=== PATIENT | male | born 1965 | race Caucasian/White ===

== ENCOUNTER 2016-06-24 15:31 | Emergency (ER) | payer OTHER ==
[2016-06-24 15:38] VITALS: BP 150/86; PULSE 86; TEMP 98.2; BMI 31.3
--- NOTE | 2016-06-24 15:40 | PDOC ---
ED Treatment Course - LABORATORY CBC & Chemistry Diagram: 06/24/16 16:44 06/24/16 16:44 Medical Decision Making - Medical Decision Making 06/24/16 15:34 Pt comes with blood in his stool x 3 days. It was initially light; blood is always mixed with his stool; 4-5 episodes of blood in stool. Patient and describe bleed as heavy. No blood clots. No dizziness; but states that he feels tired. Minimal flank pain on exam. Pt states that he has pain in his both flanks that resolves with bowel movements. No dysuria and no heamaturia. Pt's dad dies of stomach cancer and they are worried that he has a cancer also. Pt is able to eat and drink. HE has no diarrhea and no constipation. No fever. Unknown if he has a history of hemorrhoids. Pt's abdomen is soft and nontender at present, but he states that the pain disappears after each bowel movement. He appears well hydrated. Given family history of stomach cancer, pt will be started on oral contrast, so that we may evaluate for mass/neoplasm on abdominal/pelvis CT Pt started drinking at 3:40. He will be ready for CT at 6PM *DC/Admit/Observation/Transfer Diagnosis at time of Disposition: Lymphadenopathy, abdominal, Rectal bleed - Discharge Dispostion Disposition: HOME Condition at time of disposition: Stable - Referrals Referrals: Curtis Diego MD [Staff Physician] - Troy Caputo DO [Staff Physician] - - Patient Instructions Printed Discharge Instructions: DI for Rectal Bleeding, DI for Lymphadenopathy Additional Instructions: Vuelva al departamento de emergencia inmediatamente con CUALQUIER nuevo, persistente o empeorando los sntomas, incluyendo cualquier reaparicin de sangrado rectal, aturdimiento, palpitaciones o cualquier preocupacin. Perez CT mostr alguna linfadenopata, por favor realice el seguimiento con el Dr. Johnathon richardson para sherrie evaluacin posterior. Tambin debe seguir con el Dr. Caputo para la reeavuacin de perez sangrado rectal. Los resultados fueron discutidos con usted. Por favor, asegrese de que perez m dico revise los resultados de perez evaluacin de emergencia. Se le entregar sherrie copia de la CT para april registros. Return to the emergency department immediately with ANY new, persistent or worsening symptoms including any recurrence of rectal bleeding, lightheadedness , palpitations or any concerns. Your CAT scan showed some lymphadenopathy, please follow-up with Dr. Diego tomorrow for further evaluation. You should also follow up with Dr. Caputo for reeavluation of your rectal bleeding. Results were discussed with you. Please make sure your doctor reviews the results of your emergency evaluation. A copy of the CT will be given to you for your records.
[2016-06-24 16:56] LABS: BASOPHIL 0.5 % (0-2.0); MCH 28.6 pg (25.7-33.7); MEAN CELL VOLUME 84.2 fl (80-96); MEAN PLT VOLUME 8.1 fl (7.5-11.1); NEUTROPHILS 49.4 % (42.8-82.8); PLATELET COUNT 243 K/MM3 (134-434); RDW 13.9 % (11.9-15.9); WHITE BLOOD COUNT 7.4 K/mm3 (4.0-10.0)
--- NOTE | 2016-06-24 17:09 | PDOC ---
History of Present Illness - General Chief Complaint: Bleeding from Anus Stated Complaint: BLOOD IN STOOL Time Seen by Provider: 06/24/16 15:34 History Source: Patient Exam Limitations: No Limitations - History of Present Illness Travel History: No Initial Comments: 06/24/16 20:15 The patient is a 51 year old male, with a significant past medical history of kidney stones, HLD, DM, who presents to the emergency department with 3 days of blood in his stool. Patient notes the blood was initially light, but has progressively gotten darker. He reports the blood is always mixed with his stool , and has had a total of 4-5 episodes of bloody stool. He describes the blood as heavy and denies any history of blood clots. Also has chief complaints of sharp bilateral flank pain that resolves with bowel movements and is worse with movements. He reports having a normal appetite with some mild nausea.. He denies any recent fevers, chills, or headache. He denies any recent vomit, diarrhea or constipation. Normal colonoscopy and endoscopy within this last year and a half. Allergies: NKA Social History: Nonsmoker. GI: Dr.Di Baker Past History - Past Medical History Allergies/Adverse Reactions: Allergies Allergy/AdvReac Type Severity Reaction Status Date / Time No Known Allergies Allergy Verified 06/24/16 15:34 Home Medications: Ambulatory Orders Simvastatin [Zocor -] 20 mg PO HS 11/07/14 Sitagliptin Phos/Metformin HCl [Janumet 50-500 mg Tablet] 1 tab PO DAILY Lisinopril [Prinivil] 20 mg PO DAILY 04/19/15 Anemia: No Asthma: No Cancer: No Cardiac Disorders: No CVA: No COPD: No CHF: No Dementia: No Diabetes: Yes GI Disorders: No Disorders: No HTN: Yes Hypercholesterolemia: Yes Kidney Stones: Yes Liver Disease: No Seizures: No Thyroid Disease: No - Surgical History Abdominal Surgery: No Appendectomy: No Cardiac Surgery: No Cholecystectomy: No Lung Surgery: No Neurologic Surgery: No Orthopedic Surgery: Yes (RIGHT SHOULDER ROTATOR CUFF REPAIR) - Family Disease History Family Disease History: CA: Father (stomach), Sister - Psycho/Social/Smoking Cessation Hx Anxiety: No Suicidal Ideation: No Smoking Status: No Smoking History: Never smoked Have you smoked in the past 12 months: No Number of Cigarettes Smoked Daily: 0 Information on smoking cessation initiated: No Hx Alcohol Use: No Drug/Substance Use Hx: No Substance Use Type: None Hx Substance Use Treatment: No Review of Systems - Review of Systems Able to Perform ROS?: Yes Comments:: 06/24/16 20:15 CONSTITUTIONAL: No reported: Fever, Chills, Diaphoresis, Generalized Weakness, Malaise, Loss of Appetite HEENT: No reported: Rhinorrhea, Nasal Congestion, Throat Pain, Throat Swelling, Difficulty Swallowing, Mouth Swelling, Ear Pain, Eye Pain, Visual Changes CARDIOVASCULAR: No reported: Chest Pain, Syncope, Palpitations, Irregular Heart Rate, Lightheadedness, Peripheral Edema RESPIRATORY: No reported: Cough, Shortness of Breath, SOB with Exertion, Orthopnea, Wheezing , Stridor, Hemoptysis GASTROINTESTINAL: No reported: Abdominal pain, Abdominal Distension, Nausea, Vomiting, Diarrhea, Constipation GENITOURINARY: +Blood in stool and bilateral flank pain. No reported: Dysuria, Frequency, Urgency, Hesitancy, Genital Pain MUSCULOSKELETAL: No reported: Myalgia, Arthralgia, Joint Swelling, Back pain, Neck Pain SKIN: No reported: Rash, Itching, Pallor HEMEATOLOGIC/IMMUNOLOGIC: No reported: Easy Bleeding, Easy Bruising, Lymphadenopathy, Frequent infections ENDOCRINE: No reported: Unexplained Weight Gain, Unexplained Weight Loss, Heat Intolerance , Cold Intolerance NEUROLOGIC: No reported: Headache, Focal Weakness, Paresthesias, Vertigo, Lightheadedness, Unsteady Gait, Seizure, Mental Status Changes, Incontinence PSYCHIATRIC: No reported: Anxiety, Depression *Physical Exam - Vital Signs Last Vital Signs Temp Pulse Resp BP Pulse Ox 98.2 F 86 18 150/86 100 06/24/16 15:34 06/24/16 15:34 06/24/16 15:34 06/24/16 15:34 06/24/16 15:34 - Physical Exam Comments: 06/24/16 20:15 GENERAL: The patient is awake, alert, and fully oriented, Nontoxic - in no acute distress. HEAD: Normocephalic, atraumatic. EYES: extraocular movements intact, sclera anicteric, conjunctiva clear. ENT: Normal voice, Moist mucous membranes. NECK: Normal range of motion, supple LUNGS: Breath sounds equal, clear to auscultation bilaterally. No wheezes, no rhonchi, no rales. HEART: Regular rate and rhythm, without murmur, rub or gallop. RECTUM: Normal brown stool. Non Thrombotic external hemorrhoids. ABDOMEN: Soft, nontender, normoactive bowel sounds. No guarding, no rebound.No CVA tenderness EXTREMITIES: Normal range of motion, no edema. No clubbing or cyanosis. No cords , erythema, or tenderness. NEUROLOGICAL: No facial asymmetry, Normal speech. PSYCH: Normal mood, normal affect. SKIN: Warm, Dry, normal turgor. Heart Score/ECG Review - ECG Impressions Comment:: 06/24/16 17:55 Twelve-lead EKG was performed and reviewed by me. There is normal sinus rhythm with a normal rate. Rate of 75 The axis is normal. The intervals are normal. There is normal R wave progression There are no ST or T wave abnormalities. Impression: Normal twelve-lead EKG ED Treatment Course - LABORATORY CBC & Chemistry Diagram: 06/24/16 16:44 06/24/16 16:44 Medical Decision Making - Medical Decision Making 06/24/16 17:07 51y M hx hl, dm presents with several episodes of rectal bleeding and lower back pain prior to these bms with mild nausea, without any fever/chills, abd pain, sypmtoms of anemia. On exam pt in no acute distress, abd soft notnender, rectal exam reveals brown stool with nonthrombosed external hemorroids. will ck ct to r/o diverticlar bleed. labs to r/o anemia will reassess A portion of this note was documented by scribe services under my direction. I have reviewed the details of the note, within reason, and agree with the documentation with the following case summary and management plan written by me 06/24/16 17:55 06/24/16 20:16 labs reviewed unreamrkable, guaic negative pts ct of the abdomen shows significant lympahdenoapthy that is worse than prior imaging will discuss with dr. pollard regarding disposition pt can likely receive outpatient PET scan will sign out to dr. Mendoza to discuss with dr. Pollard and dispo the patient. 06/24/16 20:[address] pollard nils have pt fu with dr. johnathon barber as an outpatient for further mangement of his lymphadenopathy I discussed the physical exam findings, ancillary test results and final diagnoses with the patient. I answered all of the patient's questions. The patient was satisfied with the care received and felt comfortable with the discharge plan and treatment plan. The patient will call their primary care physician within 24 hours to arrange follow-up and will return to the Emergency Department with any new, persistent or worsening symptoms. *DC/Admit/Observation/Transfer Diagnosis at time of Disposition: Lymphadenopathy, abdominal, Rectal bleed - Discharge Dispostion Disposition: HOME Condition at time of disposition: Stable Admit: No - Referrals Referrals: Curtis Diego MD [Staff Physician] - Troy Caputo DO [Staff Physician] - - Patient Instructions Printed Discharge Instructions: DI for Rectal Bleeding, DI for Lymphadenopathy Additional Instructions: Vuelva al departamento de emergencia inmediatamente con CUALQUIER nuevo, persistente o empeorando los sntomas, incluyendo cualquier reaparicin de sangrado rectal, aturdimiento, palpitaciones o cualquier preocupacin. Perez CT mostr alguna linfadenopata, por favor realice el seguimiento con el Dr. Johnathon richardson para sherrie evaluacin posterior. Tambin debe seguir con el Dr. Caputo para la reeavuacin de perez sangrado rectal. Los resultados fueron discutidos con usted. Por favor, asegrese de que perez m dico revise los resultados de perez evaluacin de emergencia. Se le entregar sherrie copia de la CT para april registros. Return to the emergency department immediately with ANY new, persistent or worsening symptoms including any recurrence of rectal bleeding, lightheadedness , palpitations or any concerns. Your CAT scan showed some lymphadenopathy, please follow-up with Dr. Diego tomorrow for further evaluation. You should also follow up with Dr. Caputo for reeavluation of your rectal bleeding. Results were discussed with you. Please make sure your doctor reviews the results of your emergency evaluation. A copy of the CT will be given to you for your records.
[2016-06-24 17:22] LABS: INR 1.02 (0.82-1.09); PROTHROMBIN TIME (PATIENT) 11.2 SEC (9.98-11.88)
[2016-06-24 17:32] LABS: ALBUMIN 3.7 g/dl (3.4-5.0); ALK PHOS 67 U/L (45-117); ANION GAP 9 (8-16); BILIRUBIN,TOTAL 0.3 mg/dL (0.2-1.0); CALCIUM 10.1 mg/dL (8.5-10.1); CO2 27 mmol/L (21-32); CREATININE 1.1 mg/dL (0.7-1.3); GLUCOSE,RANDOM 94 mg/dL (74-106); SGOT/AST 44 U/L (15-37); SGPT/ALT 50 U/L (12-78); TOT PROT 6.9 g/dl (6.4-8.2)
== END 2016-06-24 20:55 | disposition home or self-care (01) ==
LOC: JER 15:31
DX: R59.0 Localized enlarged lymph nodes (principal); K62.5 Hemorrhage of anus and rectum; E11.9 Type 2 diabetes mellitus without complications; Z79.4 Long term (current) use of insulin; E78.00 Pure hypercholesterolemia, unspecified; I10 Essential (primary) hypertension
CPT/HCPCS: 36415; 74176-TC; 80053; 82272; 85025; 85610; 86850; 86900; 86901; 99284-25; Q9967

== ENCOUNTER 2016-07-21 07:50 | Day surgery (SDC) | payer OTHER ==
[2016-07-16 15:04] VITALS: BMI 30.1
[2016-07-21 08:53] LABS: BASOPHIL 0.6 % (0-2.0); MCH 28.5 pg (25.7-33.7); MCHC 33.4 g/dl (32.0-35.9); MEAN CELL VOLUME 85.4 fl (80-96); MEAN PLT VOLUME 7.9 fl (7.5-11.1); NEUTROPHILS 49.4 % (42.8-82.8); PLATELET COUNT 229 K/MM3 (134-434); RDW 13.9 % (11.9-15.9); WHITE BLOOD COUNT 6.7 K/mm3 (4.0-10.0)
[2016-07-21 09:00] LABS: INR 1.04 (0.82-1.09); PROTHROMBIN TIME (PATIENT) 11.4 SEC (9.98-11.88)
[2016-07-21 09:53] VITALS: TEMP 97.8
[2016-07-21] MEDS ORDERED: ACETAMINOPHEN 325 MG TABLET (FP) ONE (13:29)
[2016-07-21] MEDS ORDERED: oxyCODONE HCL 5 MG TABLET ONE (13:30)
[2016-07-21 17:00] VITALS: BP 132/78; PULSE 75
--- NOTE | 2016-07-25 16:22 | PATH ---
Surgical Pathology Report Patient Name: MIGUELITO MCNAIR [facility]. Rec. #: [id number] /Age/Gender: 1965 (Age: 51) / M Account: [id number] Location: RADIOLOGY Taken: 07/21/2016 Received: 07/21/2016 Reported: 07/25/2016 Physicians: Jamie Pa M.D. Josue Ocampo M.D. Specimen(s) Received RETROPERITONEAL LYMPH NODE BIOPSY Clinical History 51 yo male with retroperitoneal adenopathy Final Diagnosis RETROPERITONEAL LYMPH NODE, CT GUIDED CORE BIOPSY: FOLLICULAR LYMPHOMA, LOW GRADE (GRADE 2), SEE COMMENT. Comment: This case was seen in consultation with hematopathology service at [place], [place] ([id number], Dr. Rios). The diagnosis above reflects the consultation opinion. The biopsy shows lymphoid proliferation and follicular pattern. The lymphocytes of the four pulse in the germinal centers are composed of mixed small and large lymphoid cells, the large lymphoid cells of less than 15 /HPF, which is consistent with follicular lymphoma grade 2. Immunohistochemical stains show the following: The neoplastic lymphocytes are positive for CD20, CD10, BCL2 and BCL6 immunostains, negative for CD3 and BCL1 immunostains; CD23 highlights follicular dendritic network. Ki67 proliferation index is ~40%. Flow cytometry performed and interpreted on the concurrent specimen at [place], [place] ([id number]) showed clonal CD10+ B cell population, 15% of total events, in the polytypic background. The B cells were 35% of total events. A clonal (Honor, moderate) B-cell population with dim CD19 and moderate-bright CD20 and FMC7 expression, co-expressing CD10, 15% of total events, was noted within a polytypic background. The T-cells (61% of total) showed no account for cell antigen deletion. Electronically Signed Jose John M.D. Gross Description Received in formalin, labeled "lymph node biopsy" are 3 santos-red, cylindrical portions of soft tissue ranging from 0.5-1.8 cm in length and averaging 0.1 cm in diameter. The specimens are submitted in toto in one cassette. Additional tissue received in RPMI solution is sent for flow cytometry. 07/21/201607/21/2016
== END 2016-07-21 15:00 | disposition home or self-care (01) ==
LOC: JRADIR 07:50
PROVIDERS: ATTEND Internal Medicine Hematology & Oncology
PROC: BW40ZZZ Ultrasonography of Abdomen (ICD-10-PCS; principal; 2016-07-21)
PROC: 07BC3ZX Excision of Pelvis Lymphatic, Percutaneous Approach, Diagnostic (ICD-10-PCS; 2016-07-21)
DX: R59.0 Localized enlarged lymph nodes (principal)
CPT/HCPCS: 36415; 38505; 76098-TC; 76942; 77012-TC; 85025; 85610; 87899; 88305-TC

== ENCOUNTER 2016-09-16 08:45 | Day surgery (SDC) | payer OTHER ==
[2016-09-15 13:16] VITALS: BMI 30.1
[2016-09-16 09:11] LABS: BASOPHIL 0.5 % (0-2.0); EOSINOPHIL 1.6 % (0-4.5); MCH 28.6 pg (25.7-33.7); MCHC 33.5 g/dl (32.0-35.9); MEAN CELL VOLUME 85.2 fl (80-96); MEAN PLT VOLUME 7.6 fl (7.5-11.1); NEUTROPHILS 44.1 % (42.8-82.8); PLATELET COUNT 232 K/MM3 (134-434); WHITE BLOOD COUNT 6.9 K/mm3 (4.0-10.0)
[2016-09-16 09:16] LABS: INR 1.04 (0.82-1.09); PROTHROMBIN TIME (PATIENT) 11.5 SEC (9.98-11.88)
[2016-09-16 12:19] VITALS: PULSE 70
[2016-09-16 15:04] VITALS: BP 130/74
[2016-09-16 15:42] VITALS: TEMP 98
== END 2016-09-16 14:15 | disposition home or self-care (01) ==
LOC: JRADIR 08:45
PROVIDERS: ATTEND Internal Medicine Hematology & Oncology
PROC: 0JH63XZ Insertion of Tunneled Vascular Access Device into Chest Subcutaneous Tissue and Fascia, Percutaneous Approach (ICD-10-PCS; principal; 2016-09-16)
PROC: 05HM33Z Insertion of Infusion Device into Right Internal Jugular Vein, Percutaneous Approach (ICD-10-PCS; 2016-09-16)
PROC: B513ZZA Fluoroscopy of Right Jugular Veins, Guidance (ICD-10-PCS; 2016-09-16)
DX: C82.10 Follicular lymphoma grade II, unspecified site (principal)
CPT/HCPCS: 36561; 76937; 77001; C1751; 36415; 85025; 85610; C1788

== ENCOUNTER 2016-09-17 07:17 | Day surgery (SDC) | payer OTHER ==
[2016-09-17] MEDS ORDERED: PALONOSETRON HCL 0.25 MG in SODIUM CHLORIDE 50 ML IVPB ONE (08:00)
[2016-09-17] MEDS ORDERED: ACETAMINOPHEN 325 MG TABLET (FP) PO ONE (08:00)
[2016-09-17] MEDS ORDERED: DEXAMETHASONE INJECTION 10 MG in SODIUM CHLORIDE 50 ML IVPB ONE (08:00)
[2016-09-17] MEDS ORDERED: DIPHENHYDRAMINE 50 MG in SODIUM CHLORIDE 50 ML IVPB ONE (08:00)
[2016-09-17] MEDS ORDERED: BENDAMUSTINE HCL IVPB ONE (08:30)
[2016-09-17] MEDS ORDERED: SODIUM CHLORIDE IVPB ONE ×2 (08:30→09:30)
[2016-09-17] MEDS ORDERED: RITUXIMAB IVPB ONE (09:30)
[2016-09-17 09:48] LABS: BASOPHIL 0.8 % (0-2.0); EOSINOPHIL 1.4 % (0-4.5); MCH 28.5 pg (25.7-33.7); MCHC 33.5 g/dl (32.0-35.9); MEAN CELL VOLUME 85.1 fl (80-96); MEAN PLT VOLUME 8.1 fl (7.5-11.1); NEUTROPHILS 48.2 % (42.8-82.8); PLATELET COUNT 235 K/MM3 (134-434); WHITE BLOOD COUNT 6.6 K/mm3 (4.0-10.0)
[2016-09-17 12:21] LABS: ALBUMIN 3.8 g/dl (3.4-5.0); BILIRUBIN,DIRECT 0.1 mg/dL (0.0-0.2); BILIRUBIN,TOTAL 0.2 mg/dL (0.2-1.0); TOT PROT 6.9 g/dl (6.4-8.2); URIC ACID 4.9 mg/dL (2.6-7.2)
[2016-09-17] MEDS ORDERED: PORTA CATH FLUSH 10 ML IVPUSH ONE (13:58)
[2016-09-17] MEDS ORDERED: DEXAMETHASONE SOD PHOSPHATE 10 MG/1 ML VIAL IVPB ONE ×3 (14:30→21:15)
[2016-09-17] MEDS: SODIUM BICARBONATE 8.4% - 50 MEQ in SODIUM CHLORIDE 0.45% 1,000 ML IVPB SCH ×2 (14:54→23:50)
--- NOTE | 2016-09-17 18:55 | PN ---
Progress Note (short form) - Note Progress Note: nurse called saying patient was having itching and rash over the scalp to rituxan at 150mg/hr.Vitals were stable no cough/respiratory problems/choking senastion or any other problems Responded to 20mg dexamethasone restarted rituxan at 50 mg/hr. and increasd to 125mg/hr. when he had some itching. Itching resolved with benadryl 25mg resumed at 50mg/hr. and increased to 100mg/hr. Plan not to increase it more than 100mg/hr. for rest of the infusion
[2016-09-17] MEDS ORDERED: SODIUM BICARBONATE 8.4% IV SCH (21:30)
[2016-09-17] MEDS ORDERED: SODIUM CHLORIDE 0.45% IV SCH (21:30)
[2016-09-17] MEDS ORDERED: INSULIN (NOVOLOG) ASPART 100 UNITS/ML 10ML VIAL SQ ONE (23:00)
[2016-09-18] MEDS ORDERED: SODIUM CHLORIDE 0.45% IV SCH (03:15)
[2016-09-18] MEDS ORDERED: SODIUM BICARBONATE 8.4% IV SCH (03:15)
[2016-09-18 07:28] LABS: BASOPHIL 0.1 % (0-2.0); MCH 28.6 pg (25.7-33.7); MCHC 33.9 g/dl (32.0-35.9); MEAN CELL VOLUME 84.5 fl (80-96); MEAN PLT VOLUME 7.8 fl (7.5-11.1); NEUTROPHILS 94.2 % (42.8-82.8); PLATELET COUNT 226 K/MM3 (134-434); WHITE BLOOD COUNT 10.5 K/mm3 (4.0-10.0)
[2016-09-18 07:45] LABS: ALBUMIN 3.6 g/dl (3.4-5.0); ANION GAP 13 (8-16); CALCIUM 8.9 mg/dL (8.5-10.1); CO2 22 mmol/L (21-32); COCKROFT - GAULT 102; CREATININE 1.1 mg/dL (0.7-1.3); GLUCOSE,RANDOM 171 mg/dL (74-106); LDH 174 U/L (87-241); SGOT/AST 34 U/L (15-37); SGPT/ALT 63 U/L (12-78)
[2016-09-18 07:49] LABS: ALK PHOS 50 U/L (45-117); BILIRUBIN,TOTAL 0.4 mg/dL (0.2-1.0); TOT PROT 6.6 g/dl (6.4-8.2)
[2016-09-18] MEDS ORDERED: INSULIN (NOVOLOG) ASPART 100 UNITS/ML 10ML VIAL ONE (07:59)
[2016-09-18 08:07] LABS: IGG IMMUNOGLOBULIN 814 mg/dL (700-1600); IGM IMMUNOGLOBULIN 66 mg/dL (20-172)
[2016-09-18 08:47] LABS: PHOSPHOROUS 2.6 mg/dL (2.5-4.9); URIC ACID 3.4 mg/dL (2.6-7.2)
[2016-09-18] MEDS ORDERED: SODIUM CHLORIDE 250 ML IV ONE (09:00)
[2016-09-18] MEDS ORDERED: DEXAMETHASONE SOD PHOSPHATE 10 MG/1 ML VIAL IVPB PRN (09:06)
[2016-09-18 09:16] VITALS: BP 131/78; PULSE 100; TEMP 97.9
[2016-09-18] MEDS ORDERED: DEXAMETHASONE INJECTION 20 MG, DIPHENHYDRAMINE 50 MG in SODIUM CHLORIDE 100 ML IVPB ONE (09:30)
--- NOTE | 2016-09-18 10:50 | CONS ---
DATE OF CONSULTATION: DATE OF DICTATION: 09/18/2016 Thank you for the consult. This is a patient of mine. Patient is here for chemotherapy. He is known to have diabetes. After getting chemotherapy, he had chemotherapy, right for his CA of prostate. He had a reaction, he was itching, so, he had to get more steroids IV. Itching resolved. His blood sugar was 254. Had given him some insulin and the blood sugar this morning is normal. PHYSICAL EXAMINATION: General: He is awake, alert, oriented. Vital signs: Are stable. HEENT: Unremarkable. Lungs: Clear. Heart: S1, S2 normal. No S3, S4. Abdomen: Soft. Extremities: Legs no edema. His blood sugar this morning is normal. I advise to continue his chemotherapy, and this evening when chemotherapy is finished, he can be discharged home. GONZÁLEZ MCKEE M.D. [id number]
[2016-09-18] MEDS ORDERED: DEXAMETHASONE INJECTION 20 MG in SODIUM CHLORIDE 50 ML IVPB ONE (11:30)
[2016-09-18] MEDS ORDERED: SODIUM BICARBONATE 8.4% - 50 MEQ in DEXTROSE 5%-0.45% SALINE 1,000 ML IVPB ONE (12:00)
== END 2016-09-18 10:15 | disposition home or self-care (01) ==
LOC: JONCCHEMO 07:17 → J7W 11:09 → JONCCHEMO 09-18 10:15
PROVIDERS: ATTEND Internal Medicine Hematology & Oncology
DX: Z51.11 Encounter for antineoplastic chemotherapy (principal); C82.10 Follicular lymphoma grade II, unspecified site; L50.8 Other urticaria; T50.995A Adverse effect of other drugs, medicaments and biological substances, initial encounter; Y92.530 Ambulatory surgery center as the place of occurrence of the external cause
CPT/HCPCS: 36415; 80048; 80053; 80076; 82784; 83615; 84100; 84550; 85025; 85651; 96367; 96375; 96413; 96415; 96417; J2469; J9033; J9310

== ENCOUNTER 2016-09-18 07:18 | Day surgery (SDC) | payer OTHER ==
[2016-09-18] MEDS ORDERED: DEXAMETHASONE INJECTION 10 MG in SODIUM CHLORIDE 50 ML IVPB ONE (08:00)
[2016-09-18] MEDS ORDERED: ONDANSETRON INJECTION 8 MG in SODIUM CHLORIDE 50 ML IVPB ONE (08:00)
[2016-09-18] MEDS ORDERED: SODIUM CHLORIDE IVPB ONE (08:30)
[2016-09-18] MEDS ORDERED: BENDAMUSTINE HCL IVPB ONE (08:30)
[2016-09-18] MEDS ORDERED: SODIUM CHLORIDE 1,000 ML IV ONE (10:00)
[2016-09-18] MEDS ORDERED: DIPHENHYDRAMINE 50 MG, DEXAMETHASONE INJECTION 20 MG in SODIUM CHLORIDE 100 ML IVPB ONE (10:15)
[2016-09-18] MEDS ORDERED: DEXAMETHASONE SOD PHOSPHATE 10 MG/1 ML VIAL IVPB PRN (10:52)
[2016-09-18] MEDS ORDERED: PORTA CATH FLUSH 10 ML IVPUSH ONE (12:35)
[2016-09-18 12:36] VITALS: TEMP 97.9
[2016-09-18] MEDS: DEXAMETHASONE INJECTION 20 MG in SODIUM CHLORIDE 50 ML IVPB ONE ×2 (12:55→14:39)
[2016-09-18] MEDS ORDERED: DEXAMETHASONE INJECTION 20 MG in SODIUM CHLORIDE 50 ML IVPB ONE (13:15)
[2016-09-18] MEDS: INSULIN SLIDING SCALE (NOVOLOG) 1 VIAL SQ SCH ×3 (13:47→20:30)
[2016-09-18] MEDS ORDERED: SODIUM BICARBONATE 8.4% - 50 MEQ in DEXTROSE 5%-0.45% SALINE 1,000 ML IVPB ONE (14:00)
[2016-09-18] MEDS ORDERED: INSULIN (NOVOLOG) ASPART 100 UNITS/ML 10ML VIAL ONE (20:28)
[2016-09-18 20:55] VITALS: BP 142/62; PULSE 99
[2016-09-18] MEDS ORDERED: INSULIN (NOVOLOG) ASPART 100 UNITS/ML 10ML VIAL SQ ONE (21:45)
== END 2016-09-18 22:03 | disposition home or self-care (01) ==
LOC: JONCCHEMO 07:18 → J7W 10:16 → JONCCHEMO 22:03
PROVIDERS: ATTEND Internal Medicine Hematology & Oncology
DX: Z51.11 Encounter for antineoplastic chemotherapy (principal); C82.10 Follicular lymphoma grade II, unspecified site
CPT/HCPCS: 96360; 96361; 96367; 96375; 96413; 96415; 96417; J9033

== ENCOUNTER 2016-09-22 07:40 | Day surgery (SDC) | payer OTHER ==
[2016-09-22] MEDS ORDERED: PEGFILGRASTIM 6 MG/0.6 ML DISP.SYRIN SQ ONE (08:00)
[2016-09-22 10:27] LABS: MCH 28.4 pg (25.7-33.7); MCHC 33.6 g/dl (32.0-35.9); MEAN CELL VOLUME 84.6 fl (80-96); MEAN PLT VOLUME 7.8 fl (7.5-11.1); PLATELET COUNT 210 K/MM3 (134-434); RDW 13.9 % (11.9-15.9); WHITE BLOOD COUNT 5.6 K/mm3 (4.0-10.0)
[2016-09-22 11:10] LABS: ALBUMIN 3.7 g/dl (3.4-5.0); ANION GAP 12 (8-16); CALCIUM 8.8 mg/dL (8.5-10.1); CO2 22 mmol/L (21-32); COCKROFT - GAULT 86; CREATININE 1.3 mg/dL (0.7-1.3); GLUCOSE,RANDOM 226 mg/dL (74-106); SGOT/AST 26 U/L (15-37); SGPT/ALT 46 U/L (12-78); URIC ACID 4.5 mg/dL (2.6-7.2)
[2016-09-22 11:12] LABS: ALK PHOS 63 U/L (45-117); BILIRUBIN,TOTAL 0.4 mg/dL (0.2-1.0); LDH 172 U/L (87-241); TOT PROT 6.9 g/dl (6.4-8.2)
[2016-09-22 11:13] LABS: BILIRUBIN,DIRECT < 0.1 mg/dL (0.0-0.2)
[2016-09-22 11:25] LABS: METAMYELOCYTE 1 % (0-2)
[2016-09-22 11:26] LABS: PLATELET ESTIMATE ADEQUATE (NORMAL)
[2016-09-22 14:54] VITALS: BP 110/73; PULSE 92; TEMP 98.3
== END 2016-09-22 15:22 | disposition home or self-care (01) ==
LOC: JONCCHEMO 07:40 → J7W 10:56 → JONCCHEMO 15:22
PROVIDERS: ATTEND Internal Medicine Hematology & Oncology
PROC: 3E013GC Introduction of Other Therapeutic Substance into Subcutaneous Tissue, Percutaneous Approach (ICD-10-PCS; principal; 2016-09-22)
DX: C82.18 Follicular lymphoma grade II, lymph nodes of multiple sites (principal)
CPT/HCPCS: 36415; 80053; 80076; 83615; 83735; 84550; 85025; 96372; J2505

== ENCOUNTER 2016-10-15 07:32 | Day surgery (SDC) | payer OTHER ==
[2016-10-15] MEDS ORDERED: PALONOSETRON HCL 0.25 MG in SODIUM CHLORIDE 50 ML IVPB ONE (10:00)
[2016-10-15] MEDS ORDERED: ACETAMINOPHEN 325 MG TABLET (FP) PO ONE (10:00)
[2016-10-15] MEDS ORDERED: DEXAMETHASONE INJECTION 10 MG in SODIUM CHLORIDE 50 ML IVPB ONE (10:00)
[2016-10-15] MEDS ORDERED: BENDAMUSTINE HCL IVPB ONE (10:30)
[2016-10-15] MEDS ORDERED: SODIUM CHLORIDE IVPB ONE ×2 (10:30→10:40)
[2016-10-15] MEDS ORDERED: RITUXIMAB IVPB ONE (10:40)
[2016-10-15 11:26] LABS: BASOPHIL 1.1 % (0-2.0); EOSINOPHIL 0.9 % (0-4.5); MCH 29.3 pg (25.7-33.7); MCHC 34.2 g/dl (32.0-35.9); MEAN CELL VOLUME 85.7 fl (80-96); MEAN PLT VOLUME 7.6 fl (7.5-11.1); NEUTROPHILS 67.8 % (42.8-82.8); PLATELET COUNT 252 K/MM3 (134-434); RDW 14.7 % (11.9-15.9); WHITE BLOOD COUNT 5.5 K/mm3 (4.0-10.0)
[2016-10-15 11:51] LABS: ANION GAP 12 (8-16); BILIRUBIN,TOTAL 0.3 mg/dL (0.2-1.0); CALCIUM 9.3 mg/dL (8.5-10.1); CO2 21 mmol/L (21-32); COCKROFT - GAULT 94; CREATININE 1.2 mg/dL (0.7-1.3); GLUCOSE,RANDOM 109 mg/dL (74-106); LDH 175 U/L (87-241); PHOSPHOROUS 3.6 mg/dL (2.5-4.9); SGOT/AST 37 U/L (15-37); SGPT/ALT 61 U/L (12-78); TOT PROT 7.1 g/dl (6.4-8.2); URIC ACID 4.6 mg/dL (2.6-7.2)
[2016-10-15 11:52] LABS: ALK PHOS 72 U/L (45-117)
[2016-10-15] MEDS ORDERED: DEXAMETHASONE INJECTION 20 MG in SODIUM CHLORIDE 50 ML IVPB ONE (12:30)
[2016-10-15] MEDS: DIPHENHYDRAMINE 50 MG in SODIUM CHLORIDE 50 ML IVPB ONE ×2 (13:24→14:27)
[2016-10-15] MEDS ORDERED: DIPHENHYDRAMINE 50 MG in SODIUM CHLORIDE 50 ML IVPB ONE (14:00)
[2016-10-15] MEDS ORDERED: PORTA CATH FLUSH 10 ML IVPUSH PRN (19:10)
[2016-10-15] MEDS: metFORMIN HCL 500 MG TABLET (FP) PO SCH (21:10)
[2016-10-15] MEDS ORDERED: ALLOPURINOL 300 MG TABLET (FP) PO SCH (22:00)
[2016-10-15] MEDS ORDERED: RAMIPRIL 5 MG CAPSULE (FP) PO SCH (22:00)
[2016-10-16 05:32] VITALS: BP 126/74; PULSE 101; TEMP 98
[2016-10-16] MEDS: metFORMIN HCL 500 MG TABLET (FP) PO SCH (06:04)
[2016-10-16] MEDS ORDERED: sitaGLIPtin PHOSPHATE 50 MG TABLET PO SCH (07:00)
[2016-10-16] MEDS ORDERED: LINZESS 145 MCG PO SCH (10:00)
== END 2016-10-16 07:09 | disposition home or self-care (01) ==
LOC: JONCCHEMO 07:32 → J7W 12:17 → JONCCHEMO 10-16 07:09
PROVIDERS: ATTEND Internal Medicine Hematology & Oncology
DX: Z51.11 Encounter for antineoplastic chemotherapy (principal); C82.18 Follicular lymphoma grade II, lymph nodes of multiple sites
CPT/HCPCS: 36415; 80053; 80074; 83615; 84100; 84550; 85025; 85651; 96367; 96375; 96413; 96415; 96417; J2469; J8540; J9034; J9310

== ENCOUNTER 2016-10-16 07:21 | Day surgery (SDC) | payer OTHER ==
[2016-10-16] MEDS ORDERED: ONDANSETRON INJECTION 8 MG in SODIUM CHLORIDE 50 ML IVPB ONE (10:00)
[2016-10-16] MEDS ORDERED: DEXAMETHASONE INJECTION 10 MG in SODIUM CHLORIDE 50 ML IVPB ONE (10:00)
[2016-10-16] MEDS ORDERED: SODIUM CHLORIDE IVPB ONE (10:30)
[2016-10-16] MEDS ORDERED: BENDAMUSTINE HCL IVPB ONE (10:30)
[2016-10-16 12:44] VITALS: BP 100/55; PULSE 92; TEMP 97.6
[2016-10-16] MEDS ORDERED: PORTA CATH FLUSH 10 ML IVPUSH PRN (12:44)
== END 2016-10-16 12:00 | disposition home or self-care (01) ==
LOC: JONCCHEMO 07:21 → J7W 10:23 → JONCCHEMO 12:00
PROVIDERS: ATTEND Internal Medicine Hematology & Oncology
PROC: 3E04305 Introduction of Other Antineoplastic into Central Vein, Percutaneous Approach (ICD-10-PCS; principal; 2016-10-16)
PROC: 3E043GC Introduction of Other Therapeutic Substance into Central Vein, Percutaneous Approach (ICD-10-PCS; 2016-10-16)
DX: Z51.11 Encounter for antineoplastic chemotherapy (principal); C82.18 Follicular lymphoma grade II, lymph nodes of multiple sites
CPT/HCPCS: 96375; 96409; J9033; 96367; 96413; J9034

== ENCOUNTER 2016-10-20 07:39 | Day surgery (SDC) | payer OTHER ==
[2016-10-20 09:36] LABS: BASOPHIL 0.6 % (0-2.0); MCHC 33.6 g/dl (32.0-35.9); MEAN CELL VOLUME 86.2 fl (80-96); MEAN PLT VOLUME 7.6 fl (7.5-11.1); NEUTROPHILS 85.6 % (42.8-82.8); PLATELET COUNT 230 K/MM3 (134-434); RDW 15.1 % (11.9-15.9); WHITE BLOOD COUNT 4.4 K/mm3 (4.0-10.0)
[2016-10-20] MEDS ORDERED: PEGFILGRASTIM 6 MG/0.6 ML DISP.SYRIN SQ ONE (10:00)
[2016-10-20 10:01] LABS: ALBUMIN 3.9 g/dl (3.4-5.0); CALCIUM 9.3 mg/dL (8.5-10.1)
[2016-10-20 10:05] LABS: BILIRUBIN,TOTAL 0.4 mg/dL (0.2-1.0); CREATININE 1.5 mg/dL (0.7-1.3); TOT PROT 6.8 g/dl (6.4-8.2)
[2016-10-20 10:08] VITALS: BP 102/65; PULSE 80; TEMP 98
== END 2016-10-20 11:12 | disposition home or self-care (01) ==
LOC: JONCNONCHE 07:39 → J7W 09:58 → JONCNONCHE 11:12
PROVIDERS: ATTEND Internal Medicine Hematology & Oncology
PROC: 3E013GC Introduction of Other Therapeutic Substance into Subcutaneous Tissue, Percutaneous Approach (ICD-10-PCS; principal; 2016-10-20)
DX: C82.18 Follicular lymphoma grade II, lymph nodes of multiple sites (principal)
CPT/HCPCS: 36415; 80053; 85025; 96372; J2505

== ENCOUNTER 2016-11-12 07:45 | Day surgery (SDC) | payer OTHER ==
[2016-11-12 09:54] LABS: BASOPHIL 0.9 % (0-2.0); EOSINOPHIL 0.2 % (0-4.5); MCH 30.1 pg (25.7-33.7); MCHC 34.6 g/dl (32.0-35.9); MEAN PLT VOLUME 7.5 fl (7.5-11.1); NEUTROPHILS 61.7 % (42.8-82.8); PLATELET COUNT 248 K/MM3 (134-434); RDW 15.6 % (11.9-15.9); WHITE BLOOD COUNT 4.1 K/mm3 (4.0-10.0)
[2016-11-12] MEDS ORDERED: ACETAMINOPHEN 325 MG TABLET (FP) PO ONE (10:00)
[2016-11-12] MEDS ORDERED: DIPHENHYDRAMINE 50 MG in SODIUM CHLORIDE 50 ML IVPB ONE (10:00)
[2016-11-12] MEDS ORDERED: SODIUM CHLORIDE 250 ML IV ONE (10:00)
[2016-11-12] MEDS ORDERED: DEXAMETHASONE INJECTION 10 MG in SODIUM CHLORIDE 50 ML IVPB ONE (10:00)
[2016-11-12] MEDS ORDERED: PALONOSETRON HCL 0.25 MG in SODIUM CHLORIDE 50 ML IVPB ONE (10:00)
[2016-11-12 10:24] LABS: ALBUMIN 3.9 g/dl (3.4-5.0); ALK PHOS 73 U/L (45-117); ANION GAP 7 (8-16); BILIRUBIN,TOTAL 0.2 mg/dL (0.2-1.0); CALCIUM 8.7 mg/dL (8.5-10.1); CO2 25 mmol/L (21-32); CREATININE 1.2 mg/dL (0.7-1.3); GLUCOSE,RANDOM 158 mg/dL (74-106); MAGNESIUM 1.9 mg/dL (1.8-2.4); SGOT/AST 49 U/L (15-37); SGPT/ALT 63 U/L (12-78); TOT PROT 6.8 g/dl (6.4-8.2)
[2016-11-12 10:25] LABS: BILIRUBIN,DIRECT < 0.1 mg/dL (0.0-0.2)
[2016-11-12] MEDS ORDERED: BENDAMUSTINE HCL IVPB ONE (10:30)
[2016-11-12] MEDS ORDERED: SODIUM CHLORIDE IVPB ONE ×2 (10:30→10:40)
[2016-11-12] MEDS ORDERED: RITUXIMAB IVPB ONE (10:40)
[2016-11-12] MEDS ORDERED: PORTA CATH FLUSH 10 ML IVPUSH ONE (11:26)
[2016-11-12 11:44] LABS: LDH 185 U/L (87-241)
[2016-11-12 11:47] LABS: URIC ACID 5.1 mg/dL (2.6-7.2)
[2016-11-12] MEDS ORDERED: DEXAMETHASONE SOD PHOSPHATE 10 MG/1 ML VIAL IVPB ONE ×2 (12:00→15:30)
[2016-11-12] MEDS ORDERED: diphenhydrAMINE HCL 25 MG CAPSULE (FP) PO ONE (17:15)
[2016-11-12 19:39] VITALS: TEMP 98.2
[2016-11-12 20:45] VITALS: BP 117/70; PULSE 102
== END 2016-11-12 20:00 | disposition home or self-care (01) ==
LOC: JONCCHEMO 07:45 → J7W 11:15 → JONCCHEMO 20:00
PROVIDERS: ATTEND Internal Medicine Hematology & Oncology
DX: Z51.11 Encounter for antineoplastic chemotherapy (principal); C82.90 Follicular lymphoma, unspecified, unspecified site; I10 Essential (primary) hypertension; E11.9 Type 2 diabetes mellitus without complications; Z79.84 Long term (current) use of oral hypoglycemic drugs
CPT/HCPCS: 36415; 80053; 80076; 83615; 83735; 84550; 85025; 85651; 96361; 96375; 96413; 96415; 96417; J2469; J9034; J9310

== ENCOUNTER 2016-11-13 07:32 | Day surgery (SDC) | payer OTHER ==
[2016-11-13] MEDS ORDERED: ONDANSETRON INJECTION 8 MG in SODIUM CHLORIDE 50 ML IVPB ONE (10:00)
[2016-11-13] MEDS ORDERED: DEXAMETHASONE INJECTION 10 MG in SODIUM CHLORIDE 50 ML IVPB ONE (10:00)
[2016-11-13] MEDS ORDERED: SODIUM CHLORIDE 250 ML IV ONE (10:00)
[2016-11-13] MEDS ORDERED: SODIUM CHLORIDE IVPB ONE (10:30)
[2016-11-13] MEDS ORDERED: BENDAMUSTINE HCL IVPB ONE (10:30)
[2016-11-13] MEDS ORDERED: PORTA CATH FLUSH 10 ML IVPUSH ONE (10:53)
[2016-11-13 14:43] VITALS: BP 126/75; PULSE 80; TEMP 98
== END 2016-11-13 18:42 | disposition home or self-care (01) ==
LOC: JONCCHEMO 07:32 → J7W 10:42 → JONCCHEMO 18:42
PROVIDERS: ATTEND Internal Medicine Hematology & Oncology
DX: Z51.11 Encounter for antineoplastic chemotherapy (principal); C82.90 Follicular lymphoma, unspecified, unspecified site
CPT/HCPCS: 96361; 96375; 96409; 96413; J9034

== ENCOUNTER 2016-11-17 07:43 | Day surgery (SDC) | payer OTHER ==
[2016-11-17] MEDS ORDERED: PEGFILGRASTIM 6 MG/0.6 ML DISP.SYRIN SQ ONE (08:00)
[2016-11-17 09:06] LABS: BASOPHIL 0.4 % (0-2.0); EOSINOPHIL 0.8 % (0-4.5); MCH 29.8 pg (25.7-33.7); MCHC 34.2 g/dl (32.0-35.9); MEAN CELL VOLUME 87.2 fl (80-96); MEAN PLT VOLUME 7.1 fl (7.5-11.1); NEUTROPHILS 85.6 % (42.8-82.8); PLATELET COUNT 258 K/MM3 (134-434); RDW 15.3 % (11.9-15.9); WHITE BLOOD COUNT 3.7 K/mm3 (4.0-10.0)
[2016-11-17 09:33] LABS: ALBUMIN 3.8 g/dl (3.4-5.0); ALK PHOS 63 U/L (45-117); ANION GAP 11 (8-16); BILIRUBIN,DIRECT 0.1 mg/dL (0.0-0.2); BILIRUBIN,TOTAL 0.4 mg/dL (0.2-1.0); CO2 24 mmol/L (21-32); CREATININE 1.5 mg/dL (0.7-1.3); GLUCOSE,RANDOM 179 mg/dL (74-106); MAGNESIUM 1.9 mg/dL (1.8-2.4); SGOT/AST 33 U/L (15-37); SGPT/ALT 54 U/L (12-78); TOT PROT 6.6 g/dl (6.4-8.2)
[2016-11-17 10:11] VITALS: BP 118/79; PULSE 92; TEMP 97.9
== END 2016-11-17 10:55 | disposition home or self-care (01) ==
LOC: JONCNONCHE 07:43 → J7W 10:07 → JONCNONCHE 10:55
PROVIDERS: ATTEND Internal Medicine Hematology & Oncology
PROC: 3E013GC Introduction of Other Therapeutic Substance into Subcutaneous Tissue, Percutaneous Approach (ICD-10-PCS; principal; 2016-11-17)
DX: C82.18 Follicular lymphoma grade II, lymph nodes of multiple sites (principal)
CPT/HCPCS: 36415; 80053; 80076; 83735; 85025; 96372; J2505

== ENCOUNTER 2016-12-10 07:47 | Day surgery (SDC) | payer OTHER ==
[2016-12-10] MEDS ORDERED: SODIUM CHLORIDE 250 ML IV ONE (08:00)
[2016-12-10] MEDS ORDERED: ACETAMINOPHEN 325 MG TABLET (FP) PO ONE (08:30)
[2016-12-10] MEDS ORDERED: DEXAMETHASONE INJECTION 10 MG in SODIUM CHLORIDE 50 ML IVPB ONE (08:30)
[2016-12-10] MEDS ORDERED: DIPHENHYDRAMINE 50 MG in SODIUM CHLORIDE 50 ML IVPB ONE (08:30)
[2016-12-10] MEDS ORDERED: PALONOSETRON HCL 0.25 MG in SODIUM CHLORIDE 50 ML IVPB ONE (08:30)
[2016-12-10] MEDS ORDERED: SODIUM CHLORIDE IVPB ONE ×3 (09:00→13:00)
[2016-12-10] MEDS ORDERED: RITUXIMAB IVPB ONE (09:00)
[2016-12-10 10:44] LABS: BASOPHIL 1.4 % (0-2.0); EOSINOPHIL 3.4 % (0-4.5); MCH 29.4 pg (25.7-33.7); MCHC 34.1 g/dl (32.0-35.9); MEAN CELL VOLUME 86.1 fl (80-96); MEAN PLT VOLUME 7.5 fl (7.5-11.1); NEUTROPHILS 46.9 % (42.8-82.8); PLATELET COUNT 236 K/MM3 (134-434); RDW 14.3 % (11.9-15.9)
[2016-12-10 11:11] LABS: ANION GAP 9 (8-16); BILIRUBIN,DIRECT 0.1 mg/dL (0.0-0.2); BILIRUBIN,TOTAL 0.3 mg/dL (0.2-1.0); CALCIUM 9.9 mg/dL (8.5-10.1); CO2 23 mmol/L (21-32); CREATININE 1.3 mg/dL (0.7-1.3); GLUCOSE,RANDOM 98 mg/dL (74-106); SGOT/AST 45 U/L (15-37); SGPT/ALT 70 U/L (12-78); TOT PROT 7.2 g/dl (6.4-8.2)
[2016-12-10 11:12] LABS: ALK PHOS 69 U/L (45-117)
[2016-12-10] MEDS ORDERED: BENDAMUSTINE HCL IVPB ONE ×2 (13:00)
[2016-12-10] MEDS ORDERED: DEXAMETHASONE SOD PHOSPHATE 10 MG/1 ML VIAL ONE (16:07)
[2016-12-10 19:14] VITALS: BP 128/79; PULSE 90; TEMP 98.7
== END 2016-12-10 19:24 | disposition home or self-care (01) ==
LOC: JONCCHEMO 07:47 → J7W 11:26 → JONCCHEMO 19:24
PROVIDERS: ATTEND Internal Medicine Hematology & Oncology
DX: Z51.11 Encounter for antineoplastic chemotherapy (principal); C82.18 Follicular lymphoma grade II, lymph nodes of multiple sites
CPT/HCPCS: 36415; 80053; 80076; 85025; 96361; 96375; 96413; 96415; 96417; J2469; J9033; J9310

== ENCOUNTER 2016-12-11 07:30 | Day surgery (SDC) | payer OTHER ==
[2016-12-11] MEDS ORDERED: SODIUM CHLORIDE 250 ML IV ONE (08:00)
[2016-12-11] MEDS ORDERED: DEXAMETHASONE INJECTION 10 MG in SODIUM CHLORIDE 50 ML IVPB ONE (08:30)
[2016-12-11] MEDS ORDERED: ONDANSETRON INJECTION 8 MG in SODIUM CHLORIDE 50 ML IVPB ONE (08:30)
[2016-12-11] MEDS ORDERED: SODIUM CHLORIDE IVPB ONE (09:00)
[2016-12-11] MEDS ORDERED: BENDAMUSTINE HCL IVPB ONE (09:00)
[2016-12-11 15:45] VITALS: BP 110/68; PULSE 87; TEMP 97.8
== END 2016-12-11 13:00 | disposition home or self-care (01) ==
LOC: JONCCHEMO 07:30 → J7W 09:27 → JONCCHEMO 13:00
PROVIDERS: ATTEND Internal Medicine Hematology & Oncology
DX: Z51.11 Encounter for antineoplastic chemotherapy (principal); C82.18 Follicular lymphoma grade II, lymph nodes of multiple sites
CPT/HCPCS: 96361; 96375; J9033

== ENCOUNTER 2016-12-15 07:41 | Day surgery (SDC) | payer OTHER ==
[2016-12-15] MEDS ORDERED: PEGFILGRASTIM 6 MG/0.6 ML DISP.SYRIN SQ ONE (10:00)
[2016-12-15 12:47] VITALS: BP 145/87; PULSE 96; TEMP 97.6
== END 2016-12-15 10:30 | disposition home or self-care (01) ==
LOC: JONCNONCHE 07:41 → J7W 09:02 → JONCNONCHE 10:30
PROVIDERS: ATTEND Internal Medicine Hematology & Oncology
PROC: 3E013GC Introduction of Other Therapeutic Substance into Subcutaneous Tissue, Percutaneous Approach (ICD-10-PCS; principal; 2016-12-15)
DX: C82.90 Follicular lymphoma, unspecified, unspecified site (principal)
CPT/HCPCS: 96372; J2505

== ENCOUNTER 2017-01-07 07:43 | Day surgery (SDC) | payer OTHER ==
[2017-01-07] MEDS ORDERED: DEXAMETHASONE INJECTION 10 MG in SODIUM CHLORIDE 50 ML IVPB ONE (10:00)
[2017-01-07] MEDS ORDERED: DIPHENHYDRAMINE 50 MG in SODIUM CHLORIDE 50 ML IVPB ONE (10:00)
[2017-01-07] MEDS ORDERED: SODIUM CHLORIDE 250 ML IV ONE (10:00)
[2017-01-07] MEDS ORDERED: ACETAMINOPHEN 325 MG TABLET (FP) PO ONE (10:00)
[2017-01-07] MEDS ORDERED: PALONOSETRON HCL 0.25 MG in SODIUM CHLORIDE 50 ML IVPB ONE (10:00)
[2017-01-07 10:20] LABS: EOSINOPHIL 1.2 % (0-4.5); MCH 29.8 pg (25.7-33.7); MCHC 34.6 g/dl (32.0-35.9); MEAN CELL VOLUME 86.2 fl (80-96); MEAN PLT VOLUME 7.3 fl (7.5-11.1); NEUTROPHILS 76.2 % (42.8-82.8); PLATELET COUNT 239 K/MM3 (134-434); RDW 14.1 % (11.9-15.9); WHITE BLOOD COUNT 6.1 K/mm3 (4.0-10.0)
[2017-01-07] MEDS ORDERED: BENDAMUSTINE HCL IVPB ONE (10:30)
[2017-01-07] MEDS ORDERED: SODIUM CHLORIDE IVPB ONE ×2 (10:30→10:40)
[2017-01-07] MEDS ORDERED: RITUXIMAB IVPB ONE (10:40)
[2017-01-07 10:52] LABS: ALBUMIN 3.8 g/dl (3.4-5.0); ANION GAP 11 (8-16); BILIRUBIN,DIRECT < 0.2 mg/dL (0.0-0.2); BILIRUBIN,TOTAL 0.3 mg/dL (0.2-1.0); CO2 23 mmol/L (21-32); CREATININE 1.1 mg/dL (0.7-1.3); GLUCOSE,RANDOM 142 mg/dL (74-106); SGOT/AST 57 U/L (15-37); SGPT/ALT 76 U/L (12-78); TOT PROT 6.6 g/dl (6.4-8.2)
[2017-01-07 10:53] LABS: ALK PHOS 75 U/L (45-117)
[2017-01-07 18:15] VITALS: BP 120/78; PULSE 85; TEMP 98.2
== END 2017-01-07 18:16 | disposition home or self-care (01) ==
LOC: JONCCHEMO 07:43 → J7W 11:03 → JONCCHEMO 18:16
PROVIDERS: ATTEND Internal Medicine Hematology & Oncology
DX: Z51.11 Encounter for antineoplastic chemotherapy (principal); C82.90 Follicular lymphoma, unspecified, unspecified site
CPT/HCPCS: 36415; 80053; 80076; 83735; 85025; 96361; 96375; 96411; 96413; 96415; 96417; J2469; J9034; J9310

== ENCOUNTER 2017-01-08 07:46 | Day surgery (SDC) | payer OTHER ==
[2017-01-08] MEDS ORDERED: DEXAMETHASONE INJECTION 10 MG in SODIUM CHLORIDE 50 ML IVPB ONE (10:00)
[2017-01-08] MEDS ORDERED: ONDANSETRON INJECTION 8 MG in SODIUM CHLORIDE 50 ML IVPB ONE (10:00)
[2017-01-08] MEDS ORDERED: SODIUM CHLORIDE 250 ML IV ONE (10:00)
[2017-01-08] MEDS ORDERED: SODIUM CHLORIDE IVPB ONE (10:30)
[2017-01-08] MEDS ORDERED: BENDAMUSTINE HCL IVPB ONE (10:30)
[2017-01-08 14:02] VITALS: TEMP 97.8
[2017-01-08 15:38] VITALS: BP 116/74; PULSE 80
[2017-01-08] MEDS ORDERED: PORTA CATH FLUSH 10 ML IVPUSH ONE ×2 (15:38→17:32)
== END 2017-01-08 13:20 | disposition home or self-care (01) ==
LOC: JONCCHEMO 07:46 → J7W 10:23 → JONCCHEMO 13:20
PROVIDERS: ATTEND Internal Medicine Hematology & Oncology
DX: Z51.11 Encounter for antineoplastic chemotherapy (principal); C82.90 Follicular lymphoma, unspecified, unspecified site
CPT/HCPCS: 96361; 96375; 96413; J9034

== ENCOUNTER 2017-01-09 07:29 | Day surgery (SDC) | payer OTHER ==
[2017-01-09] MEDS ORDERED: PEGFILGRASTIM 6 MG/0.6 ML DISP.SYRIN SQ ONE (10:00)
[2017-01-09 10:30] VITALS: BP 127/50; PULSE 76; TEMP 98.8
== END 2017-01-09 11:18 | disposition home or self-care (01) ==
LOC: JONCCHEMO 07:29 → J7W 10:15 → JONCCHEMO 11:18
PROVIDERS: ATTEND Internal Medicine Hematology & Oncology
PROC: 3E013GC Introduction of Other Therapeutic Substance into Subcutaneous Tissue, Percutaneous Approach (ICD-10-PCS; principal; 2017-01-09)
DX: C82.90 Follicular lymphoma, unspecified, unspecified site (principal)
CPT/HCPCS: 96372; J2505

== ENCOUNTER 2017-02-04 07:35 | Day surgery (SDC) | payer OTHER ==
[2017-02-04] MEDS ORDERED: SODIUM CHLORIDE 250 ML IV ONE (08:00)
[2017-02-04] MEDS ORDERED: DIPHENHYDRAMINE 50 MG in SODIUM CHLORIDE 50 ML IVPB ONE (08:30)
[2017-02-04] MEDS ORDERED: DEXAMETHASONE INJECTION 10 MG in SODIUM CHLORIDE 50 ML IVPB ONE (08:30)
[2017-02-04] MEDS ORDERED: PALONOSETRON HCL 0.25 MG in SODIUM CHLORIDE 50 ML IVPB ONE (08:30)
[2017-02-04] MEDS ORDERED: ACETAMINOPHEN 325 MG TABLET (FP) PO ONE (08:30)
[2017-02-04] MEDS ORDERED: RITUXIMAB IVPB ONE (09:00)
[2017-02-04] MEDS ORDERED: SODIUM CHLORIDE IVPB ONE ×2 (09:00→13:00)
[2017-02-04 10:28] LABS: MCH 29.1 pg (25.7-33.7); MEAN CELL VOLUME 85.4 fl (80-96); MEAN PLT VOLUME 6.9 fl (7.5-11.1); PLATELET COUNT 252 K/MM3 (134-434); RDW 14.4 % (11.9-15.9)
[2017-02-04 10:54] LABS: ALK PHOS 72 U/L (45-117); ANION GAP 8 (8-16); BILIRUBIN,DIRECT 0.1 mg/dL (0.0-0.2); BILIRUBIN,TOTAL 0.4 mg/dL (0.2-1.0); CALCIUM 9.1 mg/dL (8.5-10.1); CO2 23 mmol/L (21-32); CREATININE 1.2 mg/dL (0.7-1.3); GLUCOSE,RANDOM 129 mg/dL (74-106); MAGNESIUM 1.7 mg/dL (1.8-2.4); SGOT/AST 51 U/L (15-37); SGPT/ALT 66 U/L (12-78); TOT PROT 7.1 g/dl (6.4-8.2)
[2017-02-04] MEDS ORDERED: MAGNESIUM SULF 50% (8.12 MEQ/2 ML-1 GM VIAL) IVPB ONE ×2 (12:30→17:30)
[2017-02-04] MEDS ORDERED: BENDAMUSTINE HCL IVPB ONE (13:00)
[2017-02-04 14:39] LABS: PLATELET ESTIMATE ADEQUATE (NORMAL); TOTAL CELLS COUNTED 100
[2017-02-04 18:55] VITALS: PULSE 92; TEMP 98.2
[2017-02-04 18:56] VITALS: BP 113/68
== END 2017-02-04 19:14 | disposition home or self-care (01) ==
LOC: JONCCHEMO 07:35 → J7W 11:01 → JONCCHEMO 19:14
PROVIDERS: ATTEND Internal Medicine Hematology & Oncology
DX: Z51.11 Encounter for antineoplastic chemotherapy (principal); C82.90 Follicular lymphoma, unspecified, unspecified site
CPT/HCPCS: 36415; 80053; 80076; 83735; 85025; 96361; 96375; 96411; 96413; 96415; 96417; J2469; J9034; J9310

== ENCOUNTER 2017-02-05 07:18 | Day surgery (SDC) | payer OTHER ==
[2017-02-05] MEDS ORDERED: PEGFILGRASTIM 6 MG/0.6 ML DISP.SYRIN SQ ONE (08:00)
[2017-02-05 18:03] VITALS: TEMP 97.7
[2017-02-05 18:08] VITALS: BP 110/68; PULSE 80
== END 2017-02-05 16:10 | disposition home or self-care (01) ==
LOC: JONCCHEMO 07:18
PROVIDERS: ATTEND Internal Medicine Hematology & Oncology
PROC: 3E013GC Introduction of Other Therapeutic Substance into Subcutaneous Tissue, Percutaneous Approach (ICD-10-PCS; principal; 2017-02-05)
DX: C82.90 Follicular lymphoma, unspecified, unspecified site (principal)
CPT/HCPCS: 96372; J2505

== ENCOUNTER 2017-05-20 07:39 | Day surgery (SDC) | payer OTHER ==
[2017-05-20] MEDS ORDERED: ACETAMINOPHEN 325 MG TABLET (FP) PO ONE (10:00)
[2017-05-20] MEDS ORDERED: DEXAMETHASONE INJECTION 20 MG, DIPHENHYDRAMINE 50 MG in SODIUM CHLORIDE 100 ML IVPB ONE (10:00)
[2017-05-20] MEDS ORDERED: RITUXIMAB IVPB ONE (10:30)
[2017-05-20] MEDS ORDERED: SODIUM CHLORIDE IVPB ONE (10:30)
[2017-05-20 10:49] LABS: BASO % 0.8 % (0-2.0); HEMATOCRIT 39.9 % (35.4-49); HEMOGLOBIN 13.3 GM/dL (11.7-16.9); LYMPH % 33.4 % (8-40); MCH 28.8 pg (25.7-33.7); MCHC 33.5 g/dl (32.0-35.9); MEAN CELL VOLUME 85.9 fl (80-96); MEAN PLT VOLUME 7.6 fl (7.5-11.1); MONO % 13.1 % (3.8-10.2); NEUT % 49.7 % (42.8-82.8); PLATELET COUNT 240 K/MM3 (134-434); RBC 4.64 M/mm3 (4.00-5.60); RDW 14.1 % (11.9-15.9); WHITE BLOOD COUNT 3.4 K/mm3 (4.0-10.0)
[2017-05-20 11:12] LABS: ANION GAP 8 (8-16); BILIRUBIN,DIRECT < 0.2 mg/dL (0.0-0.2); BLOOD UREA NITROGEN 22 mg/dL (7-18); CALCIUM 9.1 mg/dL (8.5-10.1); CHLORIDE 106 mmol/L (98-107); CO2 22 mmol/L (21-32); CREATININE 1.1 mg/dL (0.7-1.3); GLUCOSE,RANDOM 132 mg/dL (74-106); POTASSIUM 4.1 mmol/L (3.5-5.1); SGOT/AST 47 U/L (15-37); SGPT/ALT 57 U/L (12-78); SODIUM 136 mmol/L (136-145); URIC ACID 3.7 mg/dL (2.6-7.2)
[2017-05-20 11:14] LABS: ALK PHOS 71 U/L (45-117); BILIRUBIN,TOTAL 0.4 mg/dL (0.2-1.0); TOT PROT 7.1 g/dl (6.4-8.2)
[2017-05-20 12:11] VITALS: TEMP 98
[2017-05-20] MEDS ORDERED: PORTA CATH FLUSH 10 ML IVPUSH ONE (14:32)
[2017-05-20 15:47] VITALS: BP 127/83; PULSE 82
== END 2017-05-20 16:04 | disposition home or self-care (01) ==
LOC: JONCCHEMO 07:39 → J7W 11:41 → JONCCHEMO 16:04
PROVIDERS: ATTEND Internal Medicine Hematology & Oncology
DX: Z51.11 Encounter for antineoplastic chemotherapy (principal); C82.90 Follicular lymphoma, unspecified, unspecified site
CPT/HCPCS: 36415; 80053; 80076; 83615; 83735; 84550; 85025; 96367; 96375; 96413; 96415; J9310

== ENCOUNTER 2017-07-22 07:20 | Day surgery (SDC) | payer OTHER ==
[2017-07-22] MEDS ORDERED: DEXAMETHASONE INJECTION 20 MG in SODIUM CHLORIDE 100 ML IVPB ONE (10:00)
[2017-07-22] MEDS ORDERED: ACETAMINOPHEN 325 MG TABLET (FP) PO ONE (10:00)
[2017-07-22] MEDS ORDERED: SODIUM CHLORIDE IVPB ONE (10:30)
[2017-07-22] MEDS ORDERED: RITUXIMAB IVPB ONE (10:30)
[2017-07-22 11:14] LABS: BASO % 0.9 % (0-2.0); HEMATOCRIT 37.2 % (35.4-49); HEMOGLOBIN 12.8 GM/dL (11.7-16.9); LYMPH % 32.6 % (8-40); MCHC 34.5 g/dl (32.0-35.9); MEAN PLT VOLUME 7.5 fl (7.5-11.1); MONO % 11.5 % (3.8-10.2); PLATELET COUNT 262 K/MM3 (134-434); RBC 4.43 M/mm3 (4.00-5.60); RDW 14.6 % (11.9-15.9); WHITE BLOOD COUNT 3.5 K/mm3 (4.0-10.0)
[2017-07-22 11:55] LABS: ALBUMIN 4.1 g/dl (3.4-5.0); ALK PHOS 59 U/L (45-117); ANION GAP 14 (8-16); BILIRUBIN,DIRECT < 0.2 mg/dL (0.0-0.2); BILIRUBIN,TOTAL 0.4 mg/dL (0.2-1.0); BLOOD UREA NITROGEN 20 mg/dL (7-18); CALCIUM 9.1 mg/dL (8.5-10.1); CHLORIDE 107 mmol/L (98-107); CO2 18 mmol/L (21-32); CREATININE 1.1 mg/dL (0.7-1.3); GLUCOSE,RANDOM 103 mg/dL (74-106); MAGNESIUM 2.2 mg/dL (1.8-2.4); POTASSIUM 4.4 mmol/L (3.5-5.1); SGOT/AST 37 U/L (15-37); SGPT/ALT 47 U/L (12-78); SODIUM 139 mmol/L (136-145); TOT PROT 7.2 g/dl (6.4-8.2)
[2017-07-22 17:33] VITALS: TEMP 97.4
[2017-07-22 17:38] VITALS: BP 131/75; PULSE 81
== END 2017-07-22 16:15 | disposition home or self-care (01) ==
LOC: JONCCHEMO 07:20 → J7W 12:32 → JONCCHEMO 16:15
PROVIDERS: ATTEND Internal Medicine Hematology & Oncology
DX: Z51.11 Encounter for antineoplastic chemotherapy (principal); C82.90 Follicular lymphoma, unspecified, unspecified site
CPT/HCPCS: 36415; 80053; 80076; 83735; 85025; 93970-TC; 96366; 96367; 96375; 96413; 96415; J1100; J7030; J9310

== ENCOUNTER 2017-09-16 07:34 | Day surgery (SDC) | payer OTHER ==
[2017-09-16] MEDS ORDERED: ACETAMINOPHEN 325 MG TABLET (FP) PO ONE (10:00)
[2017-09-16] MEDS ORDERED: DEXAMETHASONE INJECTION 20 MG in SODIUM CHLORIDE 50 ML IVPB ONE (10:00)
[2017-09-16] MEDS ORDERED: RITUXIMAB IVPB ONE (10:30)
[2017-09-16] MEDS ORDERED: SODIUM CHLORIDE IVPB ONE (10:30)
[2017-09-16 11:19] LABS: BASO % 1.2 % (0-2.0); EOS % 2.7 % (0-4.5); HEMATOCRIT 37.7 % (35.4-49); LYMPH % 29.8 % (8-40); MCH 29.2 pg (25.7-33.7); MCHC 34.4 g/dl (32.0-35.9); MEAN CELL VOLUME 84.7 fl (80-96); MEAN PLT VOLUME 7.4 fl (7.5-11.1); MONO % 9.6 % (3.8-10.2); NEUT % 56.7 % (42.8-82.8); PLATELET COUNT 255 K/MM3 (134-434); RBC 4.45 M/mm3 (4.00-5.60); RDW 14.6 % (11.9-15.9); WHITE BLOOD COUNT 4.1 K/mm3 (4.0-10.0)
[2017-09-16 11:50] LABS: ALBUMIN 4.1 g/dl (3.4-5.0); ALK PHOS 61 U/L (45-117); ANION GAP 9 (8-16); BILIRUBIN,DIRECT < 0.2 mg/dL (0.0-0.2); BILIRUBIN,TOTAL 0.4 mg/dL (0.2-1.0); BLOOD UREA NITROGEN 25 mg/dL (7-18); CALCIUM 9.2 mg/dL (8.5-10.1); CHLORIDE 109 mmol/L (98-107); CO2 21 mmol/L (21-32); CREATININE 1.1 mg/dL (0.7-1.3); GLUCOSE,RANDOM 172 mg/dL (74-106); LDH 248 U/L (87-241); MAGNESIUM 1.9 mg/dL (1.8-2.4); POTASSIUM 4.4 mmol/L (3.5-5.1); SGOT/AST 50 U/L (15-37); SGOT/AST 51 U/L (15-37); SGPT/ALT 62 U/L (12-78); SODIUM 139 mmol/L (136-145); TOT PROT 7.1 g/dl (6.4-8.2); URIC ACID 4.1 mg/dL (2.6-7.2)
[2017-09-16 11:52] LABS: ALK PHOS 62 U/L (45-117); TOT PROT 7.1 g/dl (6.4-8.2)
[2017-09-16 15:44] VITALS: TEMP 98.2
[2017-09-16] MEDS ORDERED: PORTA CATH FLUSH 10 ML IVPUSH ONE (15:44)
[2017-09-16 15:46] VITALS: BP 129/78; PULSE 74
== END 2017-09-16 15:15 | disposition home or self-care (01) ==
LOC: JONCCHEMO 07:34 → J7W 11:12 → JONCCHEMO 15:15
PROVIDERS: ATTEND Internal Medicine Hematology & Oncology
DX: Z51.11 Encounter for antineoplastic chemotherapy (principal); C82.90 Follicular lymphoma, unspecified, unspecified site
CPT/HCPCS: 36415; 80053; 80076; 82784; 83615; 83735; 84550; 85025; 85651; 96375; 96413; 96415; J1100; J7030; J9310

== ENCOUNTER 2017-11-09 07:29 | Day surgery (SDC) | payer OTHER ==
[2017-11-09] MEDS ORDERED: ACETAMINOPHEN 325 MG TABLET (FP) PO ONE (10:00)
[2017-11-09] MEDS ORDERED: DEXAMETHASONE INJECTION 20 MG in SODIUM CHLORIDE 50 ML IVPB ONE (10:00)
[2017-11-09 10:09] LABS: BASO % 1.2 % (0-2.0); EOS % 2.2 % (0-4.5); HEMATOCRIT 38.2 % (35.4-49); LYMPH % 30.9 % (8-40); MCH 28.8 pg (25.7-33.7); MCHC 34.1 g/dl (32.0-35.9); MEAN CELL VOLUME 84.6 fl (80-96); MEAN PLT VOLUME 7.2 fl (7.5-11.1); NEUT % 54.7 % (42.8-82.8); PLATELET COUNT 226 K/MM3 (134-434); RBC 4.51 M/mm3 (4.00-5.60); RDW 14.2 % (11.9-15.9); WHITE BLOOD COUNT 3.2 K/mm3 (4.0-10.0)
[2017-11-09] MEDS ORDERED: RITUXIMAB IVPB ONE (10:30)
[2017-11-09] MEDS ORDERED: SODIUM CHLORIDE IVPB ONE (10:30)
[2017-11-09 10:38] LABS: ALK PHOS 56 U/L (45-117); ANION GAP 9 (8-16); BILIRUBIN,DIRECT 0.2 mg/dL (0.0-0.2); BILIRUBIN,TOTAL 0.4 mg/dL (0.2-1.0); BLOOD UREA NITROGEN 24 mg/dL (7-18); CALCIUM 9.2 mg/dL (8.5-10.1); CHLORIDE 106 mmol/L (98-107); CO2 24 mmol/L (21-32); CREATININE 1.3 mg/dL (0.7-1.3); GLUCOSE,RANDOM 122 mg/dL (74-106); MAGNESIUM 1.8 mg/dL (1.8-2.4); POTASSIUM 4.3 mmol/L (3.5-5.1); SGOT/AST 58 U/L (15-37); SGPT/ALT 78 U/L (12-78); SODIUM 139 mmol/L (136-145); TOT PROT 7.2 g/dl (6.4-8.2)
[2017-11-09 16:59] VITALS: TEMP 98.1
[2017-11-09] MEDS ORDERED: PORTA CATH FLUSH 10 ML IVPUSH ONE (16:59)
[2017-11-09 17:04] VITALS: BP 137/86; PULSE 81
== END 2017-11-09 15:40 | disposition home or self-care (01) ==
LOC: JONCCHEMO 07:29 → J7W 10:41 → JONCCHEMO 15:40
PROVIDERS: ATTEND Internal Medicine Hematology & Oncology
PROC: 3E04305 Introduction of Other Antineoplastic into Central Vein, Percutaneous Approach (ICD-10-PCS; principal; 2017-11-09)
PROC: 3E043GC Introduction of Other Therapeutic Substance into Central Vein, Percutaneous Approach (ICD-10-PCS; 2017-11-09)
DX: Z51.11 Encounter for antineoplastic chemotherapy (principal); C82.18 Follicular lymphoma grade II, lymph nodes of multiple sites; I10 Essential (primary) hypertension; E11.9 Type 2 diabetes mellitus without complications; E78.00 Pure hypercholesterolemia, unspecified
CPT/HCPCS: 36415; 80053; 80076; 83735; 85025; 96375; 96413; J1100; J7030; J9310

== ENCOUNTER 2018-01-06 07:31 | Day surgery (SDC) | payer OTHER ==
[2018-01-06 09:54] LABS: BASO % 1.4 % (0-2.0); EOS % 2.4 % (0-4.5); HEMATOCRIT 37.7 % (35.4-49); HEMOGLOBIN 12.6 GM/dL (11.7-16.9); MCH 28.1 pg (25.7-33.7); MCHC 33.4 g/dl (32.0-35.9); MEAN CELL VOLUME 84.2 fl (80-96); MEAN PLT VOLUME 7.7 fl (7.5-11.1); MONO % 9.8 % (3.8-10.2); NEUT % 57.4 % (42.8-82.8); PLATELET COUNT 229 K/MM3 (134-434); RBC 4.48 M/mm3 (4.00-5.60); RDW 14.3 % (11.9-15.9); WHITE BLOOD COUNT 3.3 K/mm3 (4.0-10.0)
[2018-01-06] MEDS ORDERED: ACETAMINOPHEN 325 MG TABLET (FP) PO ONE (10:00)
[2018-01-06] MEDS ORDERED: DEXAMETHASONE INJECTION 20 MG, DIPHENHYDRAMINE 50 MG in SODIUM CHLORIDE 100 ML IVPB ONE (10:00)
[2018-01-06 10:13] LABS: ANION GAP 9 MMOL/L (8-16); BLOOD UREA NITROGEN 25 mg/dL (7-18); CALCIUM 9.3 mg/dL (8.5-10.1); CHLORIDE 103 mmol/L (98-107); CO2 23 mmol/L (21-32); CREATININE 1.4 mg/dL (0.7-1.3); SGPT/ALT 77 U/L (12-78); SODIUM 135 mmol/L (136-145)
[2018-01-06 10:14] LABS: ALK PHOS 85 U/L (45-117); BILIRUBIN,DIRECT < 0.2 mg/dL (0.0-0.2); BILIRUBIN,TOTAL 0.4 mg/dL (0.2-1.0); SGPT/ALT 77 U/L (12-78); TOT PROT 7.2 g/dl (6.4-8.2)
[2018-01-06 10:16] LABS: ALK PHOS 86 U/L (45-117); BILIRUBIN,TOTAL 0.4 mg/dL (0.2-1.0); TOT PROT 7.2 g/dl (6.4-8.2)
[2018-01-06 10:21] LABS: POTASSIUM 4.4 mmol/L (3.5-5.1); SGOT/AST 58 U/L (15-37)
[2018-01-06 10:22] LABS: GLUCOSE,RANDOM 331 mg/dL (74-106)
[2018-01-06 10:23] LABS: MAGNESIUM 1.6 mg/dL (1.8-2.4); SGOT/AST 58 U/L (15-37)
[2018-01-06] MEDS ORDERED: RITUXIMAB IVPB ONE (10:30)
[2018-01-06] MEDS ORDERED: SODIUM CHLORIDE IVPB ONE (10:30)
[2018-01-06] MEDS ORDERED: SODIUM CHLORIDE 250 ML IV ONE ×2 (12:00→15:00)
[2018-01-06] MEDS ORDERED: INSULIN SLIDING SCALE (NOVOLOG) 1 VIAL SQ PRN (12:00)
[2018-01-06] MEDS ORDERED: MAGNESIUM 1GM/D5W 100ML - 100 ML IVPB IVPB ONE (12:00)
[2018-01-06] MEDS ORDERED: INSULIN (NOVOLOG) ASPART 100 UNITS/ML 10ML VIAL SQ ONE (12:00)
[2018-01-06 14:36] LABS: PLATELET ESTIMATE ADEQUATE
[2018-01-06 16:38] VITALS: TEMP 98.1
[2018-01-06] MEDS ORDERED: PORTA CATH FLUSH 10 ML IVPUSH ONE ×2 (16:38→17:14)
[2018-01-06 17:13] VITALS: BP 124/81; PULSE 71
== END 2018-01-06 17:16 | disposition home or self-care (01) ==
LOC: JONCCHEMO 07:31 → J7W 11:38 → JONCCHEMO 17:16
PROVIDERS: ATTEND Internal Medicine Hematology & Oncology
DX: Z51.11 Encounter for antineoplastic chemotherapy (principal); C82.18 Follicular lymphoma grade II, lymph nodes of multiple sites
CPT/HCPCS: 36415; 80053; 80076; 82962; 83735; 85025; 96361; 96366; 96367; 96413; 96415; 96417; J1100; J7030; J9310

== ENCOUNTER 2018-01-06 20:31 | Observation (INO) | payer OTHER ==
[2018-01-06 20:37] VITALS: BMI 29.5
[2018-01-06] MEDS ORDERED: SODIUM CHLORIDE 1,000 ML IV STA ×2 (20:38→23:12)
--- NOTE | 2018-01-06 20:39 | PDOC ---
Rapid Medical Evaluation Time Seen by Provider: 01/06/18 20:34 Medical Evaluation: Allergies Allergy/AdvReac Type Severity Reaction Status Date / Time No Known Allergies Allergy Verified 09/16/16 09:26 01/06/18 20:34 Pt presents with elevated blood sugars. States home glucometer read 555. Pt does not use insulin. Recieved dose of chemo today for Lymphoma. Admits to dizziness and shaking Exam: NAD, breathing easily, ambulatory Orders: labs, urine, IV Pt to proceed to ED for further evaluation Discharge Disposition - Diagnosis Elevated blood sugar - Referrals - Patient Instructions - Post Discharge Activity
[2018-01-06 22:01] LABS: BASO % 0.8 % (0-2.0); EOS % 0.1 % (0-4.5); HEMATOCRIT 37.7 % (35.4-49); HEMOGLOBIN 12.5 GM/dL (11.7-16.9); LYMPH % 16.1 % (8-40); MCH 28.5 pg (25.7-33.7); MCHC 33.2 g/dl (32.0-35.9); MEAN CELL VOLUME 85.8 fl (80-96); MONO % 1.1 % (3.8-10.2); NEUT % 81.9 % (42.8-82.8); PLATELET COUNT 233 K/MM3 (134-434); RBC 4.39 M/mm3 (4.00-5.60); RDW 14.2 % (11.9-15.9); WHITE BLOOD COUNT 3.9 K/mm3 (4.0-10.0)
--- NOTE | 2018-01-06 22:10 | PDOC ---
History of Present Illness - General Chief Complaint: Blood Sugar Problem Stated Complaint: HYPERGLYCEMIA Time Seen by Provider: 01/06/18 20:34 History Source: Patient Exam Limitations: No Limitations - History of Present Illness Initial Comments: Mr. Pineda is a 52 yo M with a hx of HTN, HLD, DM, and lymphoma (currently on chemo last treatment 01/06/2018 1x every 2 month schedule) presents to the ED with elevated blood glucose with concurrent polydipsia and polyuria. At home, his BG was at 555 at approximately 8:10 pm. Per the patient, his BG was in the high 300s in the morning and was given insulin prior to chemo treatment. He states his normal BG is 130-180s. States he was "shaky earlier today" but it has resolved. He began having chest pain at 5pm that lasted for 30 minutes that was in the center chest with radiation to the throat that felt like pressure, but denies acid reflux. Denies the following: fever, headaches, dizziness, SOB, abdominal pain, dysuria, hematuria, diarrhea, nausea, vomiting, melena, and leg swelling/pain. Pmhx: Refer to above Shx: None Meds: januvia, allopurinol, fenofibrate Allergies: None Social hx: Denies tobacco, alcohol, and drug use. Past History - Past Medical History Allergies/Adverse Reactions: Allergies Allergy/AdvReac Type Severity Reaction Status Date / Time No Known Allergies Allergy Verified 01/06/18 20:37 Home Medications: Ambulatory Orders Sitagliptin Phos/Metformin HCl [Janumet 50-500 mg Tablet] 1 tab PO BID 11/07/14 Fenofibrate Nanocrystallized [Fenofibrate] 145 mg PO HS 07/16/16 Linaclotide [Linzess] 145 mcg PO HS 07/16/16 Ramipril 10 mg PO HS 07/16/16 Anemia: No Asthma: No Cancer: Yes (LYMPHOMA) Cardiac Disorders: No CVA: No COPD: No CHF: No Dementia: No Diabetes: Yes GI Disorders: No Disorders: Yes (KIDNEY STONES) HTN: Yes Hypercholesterolemia: Yes Kidney Stones: Yes Liver Disease: No Seizures: No Thyroid Disease: No - Surgical History Abdominal Surgery: No Appendectomy: No Cardiac Surgery: No Cholecystectomy: No Lung Surgery: No Neurologic Surgery: No Orthopedic Surgery: Yes (RIGHT SHOULDER ROTATOR CUFF REPAIR) - Family Disease History Family Disease History: CA: Father (stomach), Sister - Suicide/Smoking/Psychosocial Hx Smoking Status: No Smoking History: Never smoked Have you smoked in the past 12 months: No Number of Cigarettes Smoked Daily: 0 Hx Alcohol Use: No Drug/Substance Use Hx: No Substance Use Type: None Hx Substance Use Treatment: No Review of Systems - Review of Systems Able to Perform ROS?: Yes Constitutional: No: Chills, Diaphoresis, Fever HEENTM: No: Recent change in vision, Ear Pain, Nose Pain, Throat Pain, Mouth Pain Respiratory: No: Cough, Shortness of Breath Cardiac (ROS): Yes: Chest Pain. No: Palpitations, Syncope ABD/GI: No: Constipated, Diarrhea, Nausea, Rectal Bleeding, Vomiting, Tarry Stools : No: Burning, Dysuria, Hematuria Musculoskeletal: No: Back Pain Integumentary: No: Rash Neurological: No: Headache, Ataxia, Dizziness Psychiatric: No: Stressors Endocrine: Yes: Increased Thirst, Increased Urine. No: Unexplained Weight Gain Hematologic/Lymphatic: No: Anemia *Physical Exam - Vital Signs Last Vital Signs Temp Pulse Resp BP Pulse Ox 98.7 F 104 H 18 142/87 97 01/06/18 20:34 01/06/18 20:34 01/06/18 20:34 01/06/18 20:34 01/06/18 20:34 - Physical Exam General Appearance: Yes: Nourished, Appropriately Dressed HEENT: positive: EOMI, CASSIDY, Normal ENT Inspection Neck: positive: Trachea midline. negative: Lymphadenopathy (R), Lymphadenopathy (L) Respiratory/Chest: positive: Lungs Clear, Normal Breath Sounds Cardiovascular: positive: Regular Rhythm, Regular Rate, S1, S2. negative: Systolic Murmur Vascular Pulses: Dorsalis-Pedis (R): 3+, Doralis-Pedis (L): 3+ Gastrointestinal/Abdominal: positive: Normal Bowel Sounds. negative: Tender Lymphatic: negative: Adenopathy Musculoskeletal: positive: Normal Inspection. negative: CVA Tenderness Extremity: positive: Normal Capillary Refill, Normal Inspection, Normal Range of Motion Integumentary: positive: Normal Color, Dry, Warm Neurologic: positive: car checker II-XII NML intact, Fully Oriented, Alert, Normal Mood/ Affect, Normal Response, Motor Strength 5/5 Heart Score/ECG Review - ECG Intrepretation Comment:: normal sinus rhythm at 96 bpm, IL 180 ms, QTc 427 ms, QRS [address] elevations and depressions. ED Treatment Course - LABORATORY CBC & Chemistry Diagram: 01/06/18 21:44 01/07/18 02:52 - ADDITIONAL ORDERS Additional order review: 01/06/18 21:44 RBC 4.39 MCV 85.8 MCHC 33.2 RDW 14.2 MPV 8.0 Neutrophils % 81.9 D Lymphocytes % 16.1 D Monocytes % 1.1 L D Eosinophils % 0.1 D Basophils % 0.8 - Medications Given in the ED: ED Medications Discontinued Medications Generic Name Dose Route Start Last Admin Trade Name Freq PRN Reason Stop Dose Admin Sodium Chloride 1,000 mls @ 1,000 mls/hr 01/06/18 20:38 01/06/18 21:47 Normal Saline - IV 01/06/18 21:37 1,000 mls/hr ASDIR STA Administration Medical Decision Making - Medical Decision Making 52 yo M with hx of DM, HTN, HLD, and lymphoma s/p 1 day of chemo treatment presenting with elevated BG and transient chest pain. ddx: ACS, pleuritis, PNA, hyperglycemia 2/2 infection vs HHS vs DKA (less likely for DKA) vs non compliance of meds vs dehydration Initial vitals: Initial Vital Signs Temp Pulse Resp BP Pulse Ox 98.7 F 104 H 18 142/87 97 01/06/18 20:34 01/06/18 20:34 01/06/18 20:34 01/06/18 20:34 01/06/18 20:34 Work up: Laboratory Tests 01/06/18 01/06/18 01/06/18 00:45 21:44 21:44 WBC 3.9 L RBC 4.39 Hgb 12.5 Hct 37.7 MCV 85.8 MCH 28.5 MCHC 33.2 RDW 14.2 Plt Count 233 MPV 8.0 Absolute Neuts (auto) 3.2 Neutrophils % 81.9 D Lymphocytes % 16.1 D Monocytes % 1.1 L D Eosinophils % 0.1 D Basophils % 0.8 Nucleated RBC % 0 PT with INR 12.10 INR 1.07 Sodium Potassium Chloride Carbon Dioxide Anion Gap BUN Creatinine Creat Clearance w eGFR Random Glucose Calcium Total Bilirubin AST ALT Alkaline Phosphatase Creatine Kinase Creatine Kinase Index CK-MB (CK-2) Troponin I Total Protein Albumin Urine Color Straw Urine Appearance Clear Urine pH 7.0 D Ur Specific [place] 1.013 Urine Protein 1+ H Urine Glucose (UA) 3+ H Urine Ketones Negative Urine Blood Negative Urine Nitrite Negative Urine Bilirubin Negative Urine Urobilinogen Negative Ur Leukocyte Esterase Negative Urine WBC (Auto) <1 Urine RBC (Auto) None Ur Epithelial Cells Rare Acetone, Qual 01/06/18 01/06/18 21:44 21:44 WBC RBC Hgb Hct MCV MCH MCHC RDW Plt Count MPV Absolute Neuts (auto) Neutrophils % Lymphocytes % Monocytes % Eosinophils % Basophils % Nucleated RBC % PT with INR INR Sodium 134 L Potassium 6.2 H* D Chloride 103 Carbon Dioxide 21 Anion Gap 10 BUN 23 H Creatinine 1.8 H Creat Clearance w eGFR 39.67 Random Glucose 513 H* D Calcium 8.7 Total Bilirubin 0.4 AST 66 H ALT 84 H Alkaline Phosphatase 71 D Creatine Kinase 229 Creatine Kinase Index 0.9 CK-MB (CK-2) 2.11 Troponin I < 0.02 Total Protein 7.3 Albumin 4.0 Urine Color Urine Appearance Urine pH Ur Specific [place] Urine Protein Urine Glucose (UA) Urine Ketones Urine Blood Urine Nitrite Urine Bilirubin Urine Urobilinogen Ur Leukocyte Esterase Urine WBC (Auto) Urine RBC (Auto) Ur Epithelial Cells Acetone, Qual Negative CXR showed no acute pathologies. Was given decadron at chemo. CMP showed a 6.2 K with a 513 BG. Was given calcium gluconate and insulin 10 units. Repeat K was within normal limits. BG trended downward to low 300s. The patient was reassessed and was feeling better s/p 2 L NS. Admit for obs to Dr. Diego. *DC/Admit/Observation/Transfer Diagnosis at time of Disposition: Elevated blood sugar, Hyperkalemia - Discharge Dispostion Condition at time of disposition: Fair - Referrals - Patient Instructions - Post Discharge Activity
--- NOTE | 2018-01-06 22:10 | PDOC ---
Attending Attestation - HPI HPI: 01/06/18 23:44 The patient is a 52 year old male, with a significant past medical history of HTN, HLD and kidney stones, diabetes and lymphoma (currently on chemo), who presents to the ED complaining of elevated blood sugar levels. Patiet notes that his blood sugar at home on the glucometer was at 555. He reports that he does not take insulin. Patient received chemo today for his lymphoma. On presentation the patient reports dizziness associated with his chief complaint. The patient denies chest pain, shortness of breath, headache, fever, chills, nausea, vomiting, diarrhea or constipation. Denies dysuria, frequency, urgency and hematuria. Allergies: None Past surgical history: RIGHT SHOULDER ROTATOR CUFF REPAIR Social History: No alcohol, tobacco or drug use reported - Physicial Exam PE: 01/06/18 23:44 Constitutional: Awake, alert, oriented. No acute distress. Head: Normocephalic. Atraumatic Eyes: PERRL. EOMI. Conjunctivae are not pale. ENT: Mucous membranes are moist and intact. Posterior pharynx without exudates or erythema. Uvula midline. Neck: Supple. Full ROM. No lymphadenopathy. Cardiovascular: (+) Tachycardia. Regular rhythm. S1, S2 regular. Distal pulses are 2+ and symmetric. Pulmonary/Chest: (+) Port on the right chest wall. No evidence of respiratory distress. Clear to auscultation bilaterally No wheezing, rales or rhonchi. Abdominal: Soft and non-distended. There is no tenderness. No rebound, guarding or rigidity. No organomegaly. No palpable masses. Good bowel sounds. Back: No CVA tenderness. Musculoskeletal: No edema. No cyanosis. No clubbing. Full range of motion in all extremities. Nocalf tenderness. Radial/pedal pulses are intact and 2+ bilaterally Skin: Skin is warm and dry. No petechiae. No purpura. Neurological: Alert and oriented to person, place, and time. Cranial nerves II -XII are grossly intact. Normal speech. Strength is grossly symmetric. No sensory deficits. Psychiatric: Good eye contact. Normal interaction, affect and behavior. <Jovon Faustin - Last Filed: 01/06/18 23:54> - Resident Resident Name: Jose Soto - ED Attending Attestation I have performed the following: I have examined & evaluated the patient, The case was reviewed & discussed with the resident, I agree w/resident's findings & plan, Exceptions are as noted - Medical Decision Making 01/06/18 22:10 I, Dr. Juana Pierre, DO, attest that this document has been prepared under my direction and personally reviewed by me in its entirety. I further attest, that it accurately reflects all work, treatment, procedures and medical decision -making performed by me. 01/07/18 00:03 a/p: 52yo male with hx of lymphoma - follows with Dr. Ocampo -had chemo today with decadron -was told prior to chemo that his glucose was elevated -pt checked his glucose at home and it was still elevated -has completed a year of chemotherapy without elevated glucose -finger stick incalc high -will recheck labs, ekg, cxr, ua -will start ivf hydration 01/07/18 00:04 pt with elevated K - ekg pending, will treat with insulin, calcium will repeat chem after meds -may need obs for elevated glucose and elevated K 01/07/18 01:18 resident discussed the case with Dr. diego who accepts pt to service <Juana Pierre - Last Filed: 01/07/18 01:18> Discharge Disposition - Discharge Dispostion Decision to Admit order: Yes <Juana Pierre - Last Filed: 01/07/18 01:18> - Diagnosis Elevated blood sugar, Hyperkalemia - Discharge Dispostion Condition at time of disposition: Fair - Referrals Referrals: Curtis Diego MD [Primary Care Provider] - - Patient Instructions - Post Discharge Activity Heart Score/ECG Review - ECG Intrepretation Comment:: 01/07/18 00:51 sinus at 96, nl axis, nl interval, no acute st/t wave findings <Juana Pierre - Last Filed: 01/07/18 01:18>
[2018-01-06 22:13] LABS: INR 1.07 (0.83-1.09); PROTHROMBIN TIME (PATIENT) 12.1 SEC (9.7-13.0)
[2018-01-06 22:28] LABS: ALK PHOS 71 U/L (45-117); ANION GAP 10 MMOL/L (8-16); BILIRUBIN,TOTAL 0.4 mg/dL (0.2-1.0); BLOOD UREA NITROGEN 23 mg/dL (7-18); CALCIUM 8.7 mg/dL (8.5-10.1); CHLORIDE 103 mmol/L (98-107); CO2 21 mmol/L (21-32); CREATININE 1.8 mg/dL (0.7-1.3); SGPT/ALT 84 U/L (12-78); SODIUM 134 mmol/L (136-145); TOT PROT 7.3 g/dl (6.4-8.2)
[2018-01-06 22:51] LABS: SGOT/AST 66 U/L (15-37)
[2018-01-06 22:53] LABS: GLUCOSE,RANDOM 513 mg/dL (74-106); POTASSIUM 6.2 mmol/L (3.5-5.1)
[2018-01-06] MEDS ORDERED: CALCIUM GLUCONATE 10% - 1,000 MG/10 ML VIAL IVPUSH ONE (23:12)
[2018-01-06] MEDS ORDERED: INSULIN REGULAR HUMAN 100 UNITS/ML *VIAL IVPUSH ONE (23:12)
[2018-01-06] MEDS ORDERED: CALCIUM GLUCONATE 10% - 1,000 MG/10 ML VIAL ONE (23:17)
[2018-01-06] MEDS ORDERED: INSULIN REGULAR HUMAN 100 UNITS/ML *VIAL ONE (23:18)
[2018-01-06 23:20] LABS: ACETONE SERUM NEGATIVE (NEGATIVE)
[2018-01-07 01:06] LABS: URINE APPEARANCE CLEAR; URINE BILIRUBIN NEGATIVE (<2.0 mg/dL); URINE COLOR STRAW; URINE GLUCOSE (UA) 3+ (NEGATIVE); URINE KETONE NEGATIVE (NEGATIVE); URINE LEUK ESTERASE NEGATIVE (NEGATIVE); URINE NITRITE NEGATIVE (NEGATIVE); URINE UROBILINOGEN NEGATIVE mg/dL (0.2-1.0)
[2018-01-07 01:11] LABS: URINE PROTEIN 1+ (NEGATIVE)
[2018-01-07 01:12] LABS: EPI CELLS RARE /HPF (FEW)
[2018-01-07 03:44] LABS: MAGNESIUM 1.7 mg/dL (1.8-2.4); PHOSPHOROUS 2.6 mg/dL (2.5-4.9)
[2018-01-07 03:45] LABS: ALBUMIN 3.5 g/dl (3.4-5.0); ANION GAP 9 MMOL/L (8-16); BILIRUBIN,TOTAL 0.3 mg/dL (0.2-1.0); BLOOD UREA NITROGEN 23 mg/dL (7-18); CALCIUM 8.3 mg/dL (8.5-10.1); CHLORIDE 108 mmol/L (98-107); CO2 20 mmol/L (21-32); CREATININE 1.4 mg/dL (0.7-1.3); SGPT/ALT 73 U/L (12-78); SODIUM 137 mmol/L (136-145); TOT PROT 6.4 g/dl (6.4-8.2)
[2018-01-07 03:46] LABS: ALK PHOS 61 U/L (45-117)
[2018-01-07 03:49] LABS: POTASSIUM 4.8 mmol/L (3.5-5.1); SGOT/AST 53 U/L (15-37)
[2018-01-07 03:50] LABS: GLUCOSE,RANDOM 320 mg/dL (74-106)
[2018-01-07 07:43] VITALS: BP 141/81; PULSE 91; TEMP 98.9
[2018-01-07] MEDS ORDERED: INSULIN REGULAR HUMAN 100 UNITS/ML *VIAL SQ ONE (10:45)
[2018-01-07] MEDS ORDERED: INSULIN REGULAR HUMAN 100 UNITS/ML *VIAL ONE (11:18)
--- NOTE | 2018-01-07 11:49 | EKG ---
Test Reason : Blood Pressure : / mmHG Vent. Rate : 096 BPM Atrial Rate : 096 BPM P-R Int : 180 ms QRS Dur : 100 ms QT Int : 338 ms P-R-T Axes : 050 059 054 degrees QTc Int : 427 ms NORMAL SINUS RHYTHM NORMAL ECG WHEN COMPARED WITH ECG OF 24-JUN-2016 16:00, NO SIGNIFICANT CHANGE WAS FOUND Confirmed by FRANCISCO THURSTON MD ([id number]) on 01/07/2018 11:48:40 AM Referred By: Confirmed By:FRANCISCO THURSTON MD
== END 2018-01-07 13:46 | disposition home or self-care (01) ==
LOC: JER 20:31 → JERBED 01-07 01:18
PROVIDERS: ADMIT Internal Medicine; ATTEND Internal Medicine
PROC: 3E033VG Introduction of Insulin into Peripheral Vein, Percutaneous Approach (ICD-10-PCS; principal; 2018-01-07)
PROC: 3E033GC Introduction of Other Therapeutic Substance into Peripheral Vein, Percutaneous Approach (ICD-10-PCS; 2018-01-07)
PROC: 3E0337Z Introduction of Electrolytic and Water Balance Substance into Peripheral Vein, Percutaneous Approach (ICD-10-PCS; 2018-01-07)
PROC: 3E013GC Introduction of Other Therapeutic Substance into Subcutaneous Tissue, Percutaneous Approach (ICD-10-PCS; 2018-01-07)
DX: E11.65 Type 2 diabetes mellitus with hyperglycemia (principal); E87.5 Hyperkalemia; I10 Essential (primary) hypertension; E78.5 Hyperlipidemia, unspecified; C85.90 Non-Hodgkin lymphoma, unspecified, unspecified site; Z92.21 Personal history of antineoplastic chemotherapy; Z87.442 Personal history of urinary calculi
CPT/HCPCS: 36415; 71045-TC-FY; 80053; 81003; 81015; 82009; 82550; 82553; 82962; 83735; 84100; 84484; 85025; 85610; 87086; 93005; 93010; 96361; 96372; 96374; 96375; 99282-25; G0378; J7030

== ENCOUNTER 2018-03-01 07:43 | Day surgery (SDC) | payer OTHER ==
[2018-03-01] MEDS ORDERED: ACETAMINOPHEN 325 MG TABLET (FP) PO ONE (10:00)
[2018-03-01 10:08] LABS: EOS % 2.2 % (0-4.5); HEMATOCRIT 38.2 % (35.4-49); HEMOGLOBIN 12.9 GM/dL (11.7-16.9); LYMPH % 32.9 % (8-40); MCHC 33.9 g/dl (32.0-35.9); MEAN CELL VOLUME 85.5 fl (80-96); MEAN PLT VOLUME 7.5 fl (7.5-11.1); MONO % 8.7 % (3.8-10.2); NEUT % 55.2 % (42.8-82.8); PLATELET COUNT 239 K/MM3 (134-434); RBC 4.47 M/mm3 (4.00-5.60); RDW 14.9 % (11.9-15.9); WHITE BLOOD COUNT 3.3 K/mm3 (4.0-10.0)
[2018-03-01] MEDS ORDERED: SODIUM CHLORIDE IVPB ONE (10:30)
[2018-03-01] MEDS ORDERED: RITUXIMAB IVPB ONE (10:30)
[2018-03-01 10:46] LABS: ALK PHOS 62 U/L (45-117); ANION GAP 9 MMOL/L (8-16); BILIRUBIN,DIRECT 0.1 mg/dL (0.0-0.2); BILIRUBIN,TOTAL 0.5 mg/dL (0.2-1); BLOOD UREA NITROGEN 23 mg/dL (7-18); CALCIUM 8.5 mg/dL (8.5-10.1); CHLORIDE 108 mmol/L (98-107); CO2 21 mmol/L (21-32); CREATININE 1.1 mg/dL (0.55-1.3); GLUCOSE,RANDOM 168 mg/dL (74-106); MAGNESIUM 1.9 mg/dL (1.8-2.4); POTASSIUM 4.5 mmol/L (3.5-5.1); SGOT/AST 64 U/L (15-37); SGPT/ALT 89 U/L (13-61); SODIUM 138 mmol/L (136-145); TOT PROT 6.7 g/dl (6.4-8.2)
[2018-03-01 10:56] LABS: BILIRUBIN,DIRECT 0.1 mg/dL (0.0-0.2); BILIRUBIN,TOTAL 0.6 mg/dL (0.2-1); MAGNESIUM 1.9 mg/dL (1.8-2.4); TOT PROT 6.7 g/dl (6.4-8.2)
[2018-03-01] MEDS: DEXAMETHASONE INJECTION 20 MG, DIPHENHYDRAMINE 50 MG in SODIUM CHLORIDE 100 ML IVPB ONE ×2 (11:34→11:39)
[2018-03-01 12:41] LABS: ANISOCYTOSIS 0; MACROCYTOSIS 0; PLATELET ESTIMATE NORMAL
[2018-03-01 15:02] VITALS: TEMP 97.5
[2018-03-01] MEDS ORDERED: PORTA CATH FLUSH 10 ML IVPUSH ONE (15:02)
[2018-03-01 15:04] VITALS: BP 125/79; PULSE 70
== END 2018-03-01 15:05 | disposition home or self-care (01) ==
LOC: JONCCHEMO 07:43 → J7W 11:21 → JONCCHEMO 15:05
PROVIDERS: ATTEND Internal Medicine Hematology & Oncology
DX: Z51.11 Encounter for antineoplastic chemotherapy (principal); C82.18 Follicular lymphoma grade II, lymph nodes of multiple sites; E11.9 Type 2 diabetes mellitus without complications; I10 Essential (primary) hypertension
CPT/HCPCS: 36415; 80053; 80076; 83735; 85025; 96367; 96375; 96413; 96415; J1100; J7030; J9310

== ENCOUNTER 2018-04-26 09:49 | Day surgery (SDC) | payer OTHER ==
[2018-04-26] MEDS ORDERED: ACETAMINOPHEN 325 MG TABLET (FP) PO ONE (10:30)
[2018-04-26] MEDS ORDERED: DEXAMETHASONE INJECTION 20 MG, DIPHENHYDRAMINE 50 MG in SODIUM CHLORIDE 100 ML IVPB ONE (10:30)
[2018-04-26 10:55] LABS: BASO % 1.1 % (0-2.0); EOS % 1.7 % (0-4.5); HEMATOCRIT 39.6 % (35.4-49); HEMOGLOBIN 14.1 GM/dL (11.7-16.9); LYMPH % 26.3 % (8-40); MCH 29.4 pg (25.7-33.7); MCHC 35.5 g/dl (32.0-35.9); MEAN CELL VOLUME 82.8 fl (80-96); MEAN PLT VOLUME 7.4 fl (7.5-11.1); MONO % 7.4 % (3.8-10.2); NEUT % 63.5 % (42.8-82.8); PLATELET COUNT 261 K/MM3 (134-434); RBC 4.78 M/mm3 (4.00-5.60); WHITE BLOOD COUNT 4.7 K/mm3 (4.0-10.0)
[2018-04-26] MEDS ORDERED: SODIUM CHLORIDE IVPB ONE (11:00)
[2018-04-26] MEDS ORDERED: RITUXIMAB IVPB ONE (11:00)
[2018-04-26 11:15] LABS: ALK PHOS 62 U/L (45-117); ANION GAP 7 MMOL/L (8-16); BILIRUBIN,TOTAL 0.4 mg/dL (0.2-1); BLOOD UREA NITROGEN 23 mg/dL (7-18); CALCIUM 9.2 mg/dL (8.5-10.1); CHLORIDE 108 mmol/L (98-107); CO2 22 mmol/L (21-32); CREATININE 1.1 mg/dL (0.55-1.3); GLUCOSE,RANDOM 163 mg/dL (74-106); POTASSIUM 4.5 mmol/L (3.5-5.1); SGOT/AST 42 U/L (15-37); SGPT/ALT 60 U/L (13-61); SODIUM 137 mmol/L (136-145); TOT PROT 6.8 g/dl (6.4-8.2)
[2018-04-26 11:16] LABS: BILIRUBIN,DIRECT 0.1 mg/dL (0.0-0.2); BILIRUBIN,TOTAL 0.4 mg/dL (0.2-1); MAGNESIUM 1.7 mg/dL (1.8-2.4); TOT PROT 6.8 g/dl (6.4-8.2)
[2018-04-26] MEDS ORDERED: MAGNESIUM SULF 50% (8.12 MEQ/2 ML-1 GM VIAL) ONE (13:05)
[2018-04-26] MEDS ORDERED: MAGNESIUM SULF 50% (8.12 MEQ/2 ML-1 GM VIAL) IVPB SCH (13:15)
[2018-04-26 14:18] LABS: ANISOCYTOSIS 0; MACROCYTOSIS 0; PLATELET ESTIMATE NORMAL
[2018-04-26 16:26] VITALS: TEMP 97.4
[2018-04-26 17:03] VITALS: BP 122/78; PULSE 70
== END 2018-04-26 17:03 | disposition home or self-care (01) ==
LOC: JONCCHEMO 09:49 → J7W 11:53 → JONCCHEMO 17:03
PROVIDERS: ATTEND Internal Medicine Hematology & Oncology
PROC: 3E04305 Introduction of Other Antineoplastic into Central Vein, Percutaneous Approach (ICD-10-PCS; principal; 2018-04-26)
PROC: 3E043GC Introduction of Other Therapeutic Substance into Central Vein, Percutaneous Approach (ICD-10-PCS; 2018-04-26)
DX: Z51.11 Encounter for antineoplastic chemotherapy (principal); C82.18 Follicular lymphoma grade II, lymph nodes of multiple sites; I10 Essential (primary) hypertension; E11.9 Type 2 diabetes mellitus without complications
CPT/HCPCS: 36415; 71046-TC-FY; 73030-TC-LT-FY; 80053; 80076; 83735; 85025; 96367; 96375; 96413; 96415; 96417; J7030; J9310

== ENCOUNTER 2018-04-29 12:15 | Emergency (ER) | payer OTHER ==
--- NOTE | 2018-04-29 12:54 | PDOC ---
Rapid Medical Evaluation Medical Evaluation: Allergies Allergy/AdvReac Type Severity Reaction Status Date / Time No Known Allergies Allergy Verified 01/06/18 20:37 I have performed a brief in-person evaluation of this patient. The patient presents with a chief complaint of: Hx DM, lymphoma (getting chemo; last chemo 2 days ago) c/o dry cough, rhinorrhea x 2 days ago; denies fever, sob , cp Pertinent physical exam findings: In NAD, mild rhinorrhea, lungs CTA B/L I have ordered the following: CXR The patient will proceed to the ED for further evaluation. 04/29/18 12:51
[2018-04-29 12:57] VITALS: BP 123/76; PULSE 96; TEMP 98.4; BMI 29.5
--- NOTE | 2018-04-29 14:23 | PDOC ---
History of Present Illness - General Chief Complaint: Cold Symptoms Stated Complaint: COUGH Time Seen by Provider: 04/29/18 13:22 History Source: Patient Exam Limitations: No Limitations - History of Present Illness Initial Comments: CHIEF COMPLAINT: 52 y/o afebrile male with PMH lymphoma c/o dry cough x 2 days. HISTORY OF PRESENT ILLNESS: The patient denies f/c, n/v/d, productive cough, earache, sore throat, CP, SOB, abd pain. He states he was told to come to the ER any time he is sick. He admits the cough is worse when he lies flat at night. He has not taken anything for the cough. Vital signs on arrival are within normal limits. REVIEW OF SYSTEMS: GENERAL/CONSTITUTIONAL: No fever/chills. No weakness. No weight change. HEAD, EYES, EARS, NOSE AND THROAT: No change in vision. No ear pain or discharge. No sore throat. CARDIOVASCULAR: No chest pain or shortness of breath. RESPIRATORY: +dry cough. No wheezing or hemoptysis. GASTROINTESTINAL: No nausea, vomiting or diarrhea. GENITOURINARY: No dysuria, frequency, or change in urination. MUSCULOSKELETAL: No joint or muscle swelling or pain. No neck or back pain. SKIN: No rash or easy bruising. NEUROLOGIC: No headache, vertigo, loss of consciousness, or loss of sensation. PHYSICAL EXAM: GENERAL: The patient is awake, alert, and fully oriented, in no acute distress. He is well appearing and ambulatory. He has an intermittent dry cough. HEAD: Normal with no signs of trauma. ENT: Pupils equal, round and reactive to light, extraocular movements intact, sclera anicteric, conjunctiva clear. Neck supple. LUNGS: Clear to auscultation bilaterally. Normal excursion. No respiratory distress or use of accessory muscles. CV: RRR, S1/S2, no MRG. Cap refill < 2 sec. ABDOMEN: Soft, non-distended, non-tender even to deep palpation, no hepatomegaly or splenomegaly, no masses. EXTREMITIES: Normal range of motion, no edema. NEUROLOGICAL: Normal speech, normal gait. CN II-XII grossly intact. SKIN: Warm, dry, normal turgor, no rashes or lesions noted. Past History - Past Medical History Allergies/Adverse Reactions: Allergies Allergy/AdvReac Type Severity Reaction Status Date / Time No Known Allergies Allergy Verified 01/06/18 20:37 Home Medications: Ambulatory Orders Sitagliptin Phos/Metformin HCl [Janumet 50-500 mg Tablet] 1 tab PO BID 11/07/14 Fenofibrate Nanocrystallized [Fenofibrate] 145 mg PO HS 07/16/16 Linaclotide [Linzess] 145 mcg PO HS 07/16/16 Ramipril 10 mg PO HS 07/16/16 Guaifenesin 200 mg PO Q4H #30 tablet 04/29/18 Anemia: No Asthma: No Cancer: Yes (LYMPHOMA) Cardiac Disorders: No CVA: No COPD: No CHF: No Dementia: No Diabetes: Yes GI Disorders: No Disorders: Yes (KIDNEY STONES) HTN: Yes Hypercholesterolemia: Yes Kidney Stones: Yes Liver Disease: No Seizures: No Thyroid Disease: No - Surgical History Abdominal Surgery: No Appendectomy: No Cardiac Surgery: No Cholecystectomy: No Lung Surgery: No Neurologic Surgery: No Orthopedic Surgery: Yes (RIGHT SHOULDER ROTATOR CUFF REPAIR) - Family Disease History Family Disease History: CA: Father (stomach), Sister - Suicide/Smoking/Psychosocial Hx Smoking Status: No Smoking History: Never smoked Have you smoked in the past 12 months: No Number of Cigarettes Smoked Daily: 0 Hx Alcohol Use: No Drug/Substance Use Hx: No Substance Use Type: None Hx Substance Use Treatment: No *Physical Exam - Vital Signs Last Vital Signs Temp Pulse Resp BP Pulse Ox 98.4 F 96 H 16 123/76 97 04/29/18 12:52 04/29/18 12:52 04/29/18 12:52 04/29/18 12:52 04/29/18 12:52 Moderate Sedation - Procedure Monitoring Vital Signs: Procedure Monitoring Vital Signs Temperature 98.4 F 04/29/18 12:52 Pulse Rate 96 H 04/29/18 12:52 Respiratory Rate 16 04/29/18 12:52 Blood Pressure 123/76 04/29/18 12:52 O2 Sat by Pulse Oximetry (%) 97 04/29/18 12:52 Medical Decision Making - Medical Decision Making A/P: 52 y/o male with dry cough x 2 days. Not concerned for flu. THe patient was sent from triage for CXR. CXR IMPRESSION (wet read): No acute disease. Will send rx for guiafenisin. Instructed him to use cough drops and keep hydrated. Instructed him to sit up to sleep and use a humidifier in his room to help with sleep. Instructed him to call his PCP and his oncologist tomorrow. The patient verbalizes understanding of all instructions, has no further questions and is awaiting discharge. *DC/Admit/Observation/Transfer Diagnosis at time of Disposition: Cough - Discharge Dispostion Disposition: HOME Condition at time of disposition: Good - Referrals Referrals: Curtis Diego MD [Primary Care Provider] - Call tomorrow Josue Ocampo MD [Staff Physician] - Call tomorrow - Patient Instructions Printed Discharge Instructions: DI for Cough -- Adult Additional Instructions: Discharge Instructions: -A prescription for a cough medicine has been sent to your pharmacy -Your chest xray was normal -Please sit up to sleep -Use a humidifier in your room at night to help with cough -Drink at least 64oz of water daily -Use cough drops to keep your throat moist -Call Dr. Diego and Dr. Ocampo tomorrow Instrucciones de descarga: -Gemma receta para un medicamento para la tos wyatt sido enviada a sepulveda farmacia - Tu radiografa de trax era normal. -Por favor, sintate a dormir - Use un humidificador en sepulveda habitacin por la noche para ayudar con la tos. -Beber al menos 64 oz de agua al da - Usa gotas para la tos para mantener tu garganta hmeda. -Llamad al doctor Johnathon y al doctor Damaris richardson. Print Language: CHADIAN - Post Discharge Activity
== END 2018-04-29 15:06 | disposition home or self-care (01) ==
LOC: JERFT 12:15
DX: R05 Cough (principal); E11.9 Type 2 diabetes mellitus without complications; Z79.84 Long term (current) use of oral hypoglycemic drugs; Z85.72 Personal history of non-Hodgkin lymphomas
CPT/HCPCS: 71046-TC-FY; 99281-25

== ENCOUNTER 2018-06-21 07:05 | Day surgery (SDC) | payer OTHER ==
[2018-06-21 10:16] LABS: BASO % 1.5 % (0-2.0); HEMATOCRIT 40.3 % (35.4-49); HEMOGLOBIN 14.2 GM/dL (11.7-16.9); LYMPH % 28.1 % (8-40); MCH 29.5 pg (25.7-33.7); MCHC 35.3 g/dl (32.0-35.9); MEAN CELL VOLUME 83.7 fl (80-96); MEAN PLT VOLUME 7.4 fl (7.5-11.1); MONO % 9.5 % (3.8-10.2); NEUT % 57.9 % (42.8-82.8); PLATELET COUNT 230 K/MM3 (134-434); RBC 4.81 M/mm3 (4.00-5.60); RDW 14.7 % (11.9-15.9); WHITE BLOOD COUNT 3.7 K/mm3 (4.0-10.0)
[2018-06-21] MEDS ORDERED: RITUXIMAB IVPB ONE (10:30)
[2018-06-21] MEDS ORDERED: SODIUM CHLORIDE IVPB ONE (10:30)
[2018-06-21 10:46] LABS: ALBUMIN 4.2 g/dl (3.4-5.0); ALK PHOS 50 U/L (45-117); ANION GAP 7 MMOL/L (8-16); BILIRUBIN,TOTAL 0.5 mg/dL (0.2-1); BLOOD UREA NITROGEN 29 mg/dL (7-18); CALCIUM 9.6 mg/dL (8.5-10.1); CHLORIDE 108 mmol/L (98-107); CO2 22 mmol/L (21-32); GLUCOSE,RANDOM 117 mg/dL (74-106); POTASSIUM 4.5 mmol/L (3.5-5.1); SGOT/AST 54 U/L (15-37); SGPT/ALT 69 U/L (13-61); SODIUM 137 mmol/L (136-145); TOT PROT 6.9 g/dl (6.4-8.2)
[2018-06-21 10:49] LABS: ALBUMIN 4.2 g/dl (3.4-5.0); BILIRUBIN,DIRECT 0.1 mg/dL (0.0-0.2); BILIRUBIN,TOTAL 0.4 mg/dL (0.2-1); TOT PROT 6.8 g/dl (6.4-8.2)
[2018-06-21] MEDS ORDERED: ACETAMINOPHEN 325 MG TABLET (FP) ONE (12:04)
[2018-06-21 12:19] LABS: ANISOCYTOSIS 1+; MACROCYTOSIS 0; PLATELET ESTIMATE NORMAL; TEAR DROP CELLS 1+
[2018-06-21] MEDS ORDERED: ACETAMINOPHEN 325 MG TABLET (FP) PO ONE ×2 (12:30)
[2018-06-21] MEDS ORDERED: DEXAMETHASONE SOD PHOSPHATE 10 MG/1 ML VIAL IVPB ONE (12:30)
[2018-06-21 16:11] VITALS: BP 145/85; PULSE 86
[2018-06-21] MEDS ORDERED: PORTA CATH FLUSH 10 ML IVPUSH ONE (16:11)
[2018-06-21 16:15] VITALS: TEMP 97.9
== END 2018-06-21 15:55 | disposition home or self-care (01) ==
LOC: JONCCHEMO 07:05 → J7W 11:32 → JONCCHEMO 15:55
PROVIDERS: ATTEND Internal Medicine Hematology & Oncology
DX: Z51.11 Encounter for antineoplastic chemotherapy (principal); C82.18 Follicular lymphoma grade II, lymph nodes of multiple sites
CPT/HCPCS: 36415; 80053; 80076; 83036; 83735; 85025; 96367; 96375; 96413; 96415; J1100; J7030; J9312

== ENCOUNTER 2018-08-16 07:09 | Day surgery (SDC) | payer OTHER ==
[2018-08-16] MEDS ORDERED: DIPHENHYDRAMINE 50 MG in SODIUM CHLORIDE 50 ML IVPB ONE (08:15)
[2018-08-16] MEDS ORDERED: ACETAMINOPHEN 325 MG TABLET (FP) PO ONE (08:30)
[2018-08-16] MEDS ORDERED: DEXAMETHASONE INJECTION 20 MG in SODIUM CHLORIDE 50 ML IVPB ONE (08:30)
[2018-08-16] MEDS ORDERED: SODIUM CHLORIDE IVPB ONE (09:00)
[2018-08-16] MEDS ORDERED: RITUXIMAB IVPB ONE (09:00)
[2018-08-16 10:38] LABS: BASO % 0.7 % (0-2.0); EOS % 2.7 % (0-4.5); HEMOGLOBIN 13.9 GM/dL (11.7-16.9); LYMPH % 26.6 % (8-40); MCH 28.5 pg (25.7-33.7); MCHC 33.8 g/dl (32.0-35.9); MEAN CELL VOLUME 84.2 fl (80-96); MEAN PLT VOLUME 7.6 fl (7.5-11.1); MONO % 7.3 % (3.8-10.2); NEUT % 62.7 % (42.8-82.8); PLATELET COUNT 242 K/MM3 (134-434); RBC 4.88 M/mm3 (4.00-5.60); RDW 14.9 % (11.9-15.9); WHITE BLOOD COUNT 4.1 K/mm3 (4.0-10.0)
[2018-08-16 10:48] LABS: ALBUMIN 4.3 g/dl (3.4-5.0); ALK PHOS 54 U/L (45-117); ANION GAP 10 MMOL/L (8-16); BILIRUBIN,TOTAL 0.3 mg/dL (0.2-1); BLOOD UREA NITROGEN 27 mg/dL (7-18); CALCIUM 9.7 mg/dL (8.5-10.1); CHLORIDE 105 mmol/L (98-107); CO2 23 mmol/L (21-32); CREATININE 1.8 mg/dL (0.55-1.3); GLUCOSE,RANDOM 109 mg/dL (74-106); POTASSIUM 4.1 mmol/L (3.5-5.1); SGOT/AST 47 U/L (15-37); SGPT/ALT 62 U/L (13-61); SODIUM 138 mmol/L (136-145); TOT PROT 7.2 g/dl (6.4-8.2)
[2018-08-16 10:55] LABS: ALBUMIN 4.3 g/dl (3.4-5.0); BILIRUBIN,DIRECT 0.1 mg/dL (0.0-0.2); BILIRUBIN,TOTAL 0.4 mg/dL (0.2-1); MAGNESIUM 1.9 mg/dL (1.8-2.4); TOT PROT 7.1 g/dl (6.4-8.2); URIC ACID 6.1 mg/dL (2.6-7.2)
[2018-08-16 13:52] LABS: MACROCYTOSIS 0; PLATELET ESTIMATE NORMAL; TEAR DROP CELLS 1+
[2018-08-16 16:22] VITALS: TEMP 98.7
[2018-08-16] MEDS ORDERED: PORTA CATH FLUSH 10 ML IVPUSH ONE (16:22)
[2018-08-16 16:24] VITALS: BP 138/88; PULSE 78
[2018-08-17 04:11] LABS: HEPATITIS B CORE ANTIBODY,IGM Negative (Negative)
[2018-08-17 08:06] LABS: IGA IMMUNOGLOBULIN 68 mg/dL (90-386); IGG IMMUNOGLOBULIN 570 mg/dL (700-1600); IGM IMMUNOGLOBULIN 6 mg/dL (20-172)
[2018-08-17 19:10] LABS: HEP B CORE AB, IGM Negative (Negative); HEP B CORE AB, TOT Negative (Negative)
== END 2018-08-16 15:15 | disposition home or self-care (01) ==
LOC: JONCCHEMO 07:09 → J7W 10:22 → JONCCHEMO 15:15
PROVIDERS: ATTEND Internal Medicine Hematology & Oncology
DX: Z51.11 Encounter for antineoplastic chemotherapy (principal); C82.18 Follicular lymphoma grade II, lymph nodes of multiple sites
CPT/HCPCS: 36415; 80053; 80076; 82784; 83615; 83735; 84550; 85025; 86704; 86705; 86706; 86707; 86803; 87350; 96375; 96413; 96415; J7030; J9312

== ENCOUNTER 2018-10-11 07:20 | Day surgery (SDC) | payer OTHER | END 2018-10-11 15:18 | disposition home or self-care (01) | LOC: JONCCHEMO 07:20 → J7W 09:41 → JONCCHEMO 15:18 ==

== ENCOUNTER 2018-12-06 05:55 | Day surgery (SDC) | payer OTHER ==
[2018-12-06 08:47] LABS: BASO % 1.2 % (0-2.0); EOS % 2.2 % (0-4.5); HEMATOCRIT 37.5 % (35.4-49); HEMOGLOBIN 13.2 GM/dL (11.7-16.9); LYMPH % 28.8 % (8-40); MCH 29.6 pg (25.7-33.7); MCHC 35.1 g/dl (32.0-35.9); MEAN CELL VOLUME 84.3 fl (80-96); MEAN PLT VOLUME 7.4 fl (7.5-11.1); MONO % 5.3 % (3.8-10.2); NEUT % 62.5 % (42.8-82.8); PLATELET COUNT 230 K/MM3 (134-434); RBC 4.45 M/mm3 (4.00-5.60); RDW 14.4 % (11.9-15.9); WHITE BLOOD COUNT 3.2 K/mm3 (4.0-10.0)
[2018-12-06 09:27] LABS: BILIRUBIN,DIRECT 0.1 mg/dL (0.0-0.2); BILIRUBIN,TOTAL 0.4 mg/dL (0.2-1); BLOOD UREA NITROGEN 21.1 mg/dL (7-18); CALCIUM 9.1 mg/dL (8.5-10.1); CREATININE 1.5 mg/dL (0.55-1.3); MAGNESIUM 1.8 mg/dL (1.8-2.4); POTASSIUM 4.2 mmol/L (3.5-5.1); TOT PROT 6.6 g/dl (6.4-8.2); URIC ACID 5.2 mg/dL (2.6-7.2)
[2018-12-06 09:32] LABS: ALBUMIN 3.9 g/dl (3.4-5.0)
[2018-12-06] MEDS ORDERED: ACETAMINOPHEN 325 MG TABLET (FP) PO ONE (10:00)
[2018-12-06] MEDS ORDERED: DEXAMETHASONE SODIUM PHOSPHATE 20 MG, DIPHENHYDRAMINE 50 MG in SODIUM CHLORIDE 100 ML IVPB ONE (10:00)
[2018-12-06 10:29] LABS: ANISOCYTOSIS 0; HELMET CELLS 0; HOWELL-JOLLY BODIES 0; MACROCYTOSIS 0; OVALOCYTE 0; PLATELET ESTIMATE NORMAL; ROULEAU 0; SICKELED CELLS 0; TARGET CELLS 0; TEAR DROP CELLS 0; TOXIC GRANULATION 0
[2018-12-06] MEDS ORDERED: RITUXIMAB IVPB ONE (10:30)
[2018-12-06] MEDS ORDERED: SODIUM CHLORIDE IVPB ONE (10:30)
[2018-12-06] MEDS ORDERED: INSULIN (NOVOLOG) ASPART 100 UNITS/ML 10ML VIAL SQ ONE (11:15)
[2018-12-06] MEDS ORDERED: INSULIN (NOVOLOG) ASPART 100 UNITS/ML 10ML VIAL ONE (11:36)
[2018-12-06 15:01] VITALS: TEMP 98.2
[2018-12-06] MEDS ORDERED: PORTA CATH FLUSH 10 ML IVPUSH ONE (15:01)
[2018-12-06 15:04] VITALS: BP 127/81; PULSE 74
== END 2018-12-06 15:10 | disposition home or self-care (01) ==
LOC: JONCCHEMO 05:55 → J7W 10:53 → JONCCHEMO 15:10
PROVIDERS: ATTEND Internal Medicine Hematology & Oncology
DX: Z51.11 Encounter for antineoplastic chemotherapy (principal); C82.18 Follicular lymphoma grade II, lymph nodes of multiple sites
CPT/HCPCS: 36415; 80048; 80076; 82962; 83615; 83735; 84550; 85025; 96367; 96375; 96413; 96415; J7030; J9312

== ENCOUNTER 2019-02-01 09:32 | Day surgery (SDC) | payer OTHER ==
[2019-02-01] MEDS ORDERED: DEXAMETHASONE SODIUM PHOSPHATE 20 MG, DIPHENHYDRAMINE 50 MG in SODIUM CHLORIDE 100 ML IVPB ONE (10:00)
[2019-02-01] MEDS ORDERED: ACETAMINOPHEN 325 MG TABLET (FP) PO ONE (10:00)
[2019-02-01 10:28] LABS: BASO % 1.4 % (0-2.0); EOS % 4.7 % (0-4.5); HEMATOCRIT 36.9 % (35.4-49); HEMOGLOBIN 12.2 GM/dL (11.7-16.9); LYMPH % 20.7 % (8-40); MCH 28.4 pg (25.7-33.7); MCHC 33.1 g/dl (32.0-35.9); MEAN CELL VOLUME 85.8 fl (80-96); MEAN PLT VOLUME 7.4 fl (7.5-11.1); MONO % 7.1 % (3.8-10.2); NEUT % 66.1 % (42.8-82.8); PLATELET COUNT 253 K/MM3 (134-434); RDW 13.9 % (11.9-15.9); WHITE BLOOD COUNT 4.5 K/mm3 (4.0-10.0)
[2019-02-01] MEDS ORDERED: RITUXIMAB IVPB ONE (10:30)
[2019-02-01] MEDS ORDERED: SODIUM CHLORIDE IVPB ONE (10:30)
[2019-02-01 10:56] LABS: CALCIUM 9.7 mg/dL (8.5-10.1); CREATININE 1.2 mg/dL (0.55-1.3); POTASSIUM 4.4 mmol/L (3.5-5.1); URIC ACID 4.7 mg/dL (2.6-7.2)
[2019-02-01 10:59] LABS: ALBUMIN 4.3 g/dl (3.4-5.0); BILIRUBIN,DIRECT 0.1 mg/dL (0.0-0.2); BILIRUBIN,TOTAL 0.4 mg/dL (0.2-1)
[2019-02-01 12:25] LABS: ANISOCYTOSIS 0; MACROCYTOSIS 0; PLATELET ESTIMATE NORMAL
[2019-02-01 17:49] VITALS: BP 139/79; PULSE 81; TEMP 98.7
[2019-02-01] MEDS ORDERED: PORTA CATH FLUSH 10 ML IVPUSH ONE (17:49)
[2019-02-02 16:12] LABS: BETA-2-MICROGLOBULIN 2.7 mg/L (0.6-2.4)
== END 2019-02-01 17:40 | disposition home or self-care (01) ==
LOC: JONCCHEMO 09:32 → J7W 12:11 → JONCCHEMO 17:40
PROVIDERS: ATTEND Internal Medicine Hematology & Oncology
DX: Z51.11 Encounter for antineoplastic chemotherapy (principal); C82.18 Follicular lymphoma grade II, lymph nodes of multiple sites
CPT/HCPCS: 36415; 72100-TC-FY; 73502-TC-LT-FY; 73552-TC-LT-FY; 80048; 80076; 82232; 82784; 83615; 83735; 84550; 85025; 96367; 96375; 96413; 96415; J7030; J9312

== ENCOUNTER 2019-06-06 07:20 | Emergency (ER) | payer OTHER ==
[2019-06-06] MEDS ORDERED: ASPIRIN 81 MG CHEWABLE TABLETS PO ONE (08:00)
--- NOTE | 2019-06-06 08:01 | PDOC ---
Attending Attestation - Resident Resident Name: Conrado Sin - ED Attending Attestation I have performed the following: I have examined & evaluated the patient, The case was reviewed & discussed with the resident, I agree w/resident's findings & plan, Exceptions are as noted - HPI HPI: 06/06/19 17:47 54 yo M w a pmh of NIDDM, HTN, HLD and lymphoma on chemo here at [facility] who presents to the ER with 1 day of cough, fevers, chills, myalgias, and subjective feelings of dehydration - Physicial Exam PE: 06/06/19 17:47 Vitals: Triage Vital signs reviewed General Appearance: Mildly diaphoretic Cardiac: Regular rate and rhythym, no murmurs, no rubs, no gallops, Lungs: Clear to auscultation bilateral, good air movement bilaterally, Abdomen: Soft, non distended, normal bowel sounds, non tender to palpation Genitourinary: Rectal: Exam deferred Extremities: Full range of motion to all extremities, no cyanosis, clubbing, or edema Skin: Warm and dry, no rashes or lesions, no rash, no petechiae Psych: Normal mood, normal affect - Medical Decision Making 06/06/19 17:47 Patient with flulike symptoms but also with chest pain given comorbidities chest pain and diaphoresis EKG and troponin ordered EKG demonstrates no evidence of ischemia troponin negative x2 Flu positive Status post IV fluids and IV Tylenol patient feels much better Tamiflu called into patient's pharmacy Findings, the need for follow-up and strict return instructions discussed with patient.
--- NOTE | 2019-06-06 08:02 | PDOC ---
History of Present Illness - General Chief Complaint: Weakness Stated Complaint: CHEST PAIN Time Seen by Provider: 06/06/19 07:52 History Source: Patient Exam Limitations: No Limitations, Language Barrier - History of Present Illness Initial Comments: Hayder Pineda is a 54 yo M w a pmh of NIDDM, HTN, HLD and lymphoma on chemo here at [facility] who presents to the ER with 1 day of cough, fevers, chills, myalgias, and subjective feelings of dehydration. He states his whole body aches and needs some pain relief. He states whenever he takes a deep breath or coughs the pain is worsened. Patient states yesterday he felt nauseous and vomited twice. PCP: Dr. Curtis Diego Cards: Patient doesn't remember name but says he is accross the street PSH: None reported Allergies: None Social hx: Denies tobacco, alcohol, and drug use. Past History - Past Medical History Allergies/Adverse Reactions: Allergies Allergy/AdvReac Type Severity Reaction Status Date / Time No Known Allergies Allergy Verified 01/06/18 20:37 Home Medications: Ambulatory Orders Sitagliptin Phos/Metformin HCl [Janumet 50-500 mg Tablet] 1 tab PO BID 11/07/14 Fenofibrate Nanocrystallized [Fenofibrate] 145 mg PO HS 07/16/16 Linaclotide [Linzess] 145 mcg PO HS 07/16/16 Ramipril 10 mg PO HS 07/16/16 Gabapentin 300 mg PO BID 06/06/19 Glipizide 5 mg PO DAILY 06/06/19 Oseltamivir Phosphate [Tamiflu] 75 mg PO BID 5 Days #10 capsule 06/06/19 Anemia: No Asthma: No Cancer: Yes (LYMPHOMA) Cardiac Disorders: No CVA: No COPD: No CHF: No Dementia: No Diabetes: Yes GI Disorders: No Disorders: Yes (KIDNEY STONES) HTN: Yes Hypercholesterolemia: Yes Kidney Stones: Yes Liver Disease: No Seizures: No Thyroid Disease: No - Surgical History Abdominal Surgery: No Appendectomy: No Cardiac Surgery: No Cholecystectomy: No Lung Surgery: No Neurologic Surgery: No Orthopedic Surgery: Yes (RIGHT SHOULDER ROTATOR CUFF REPAIR) - Immunization History Immunization Up to Date: No - Psycho Social/Smoking Cessation Hx Smoking Status: No Smoking History: Never smoked Have you smoked in the past 12 months: No Number of Cigarettes Smoked Daily: 0 Information on smoking cessation initiated: No Hx Alcohol Use: No Drug/Substance Use Hx: No Substance Use Type: None Hx Substance Use Treatment: No Review of Systems - Review of Systems Able to Perform ROS?: Yes Comments:: CONSTITUTIONAL: Present: fevers, chills, fatigue EYES: Absent: visual changes ENT: Absent: ear pain, no sore throat CARDIOVASCULAR: Present: Chest pain Absent: no palpitations RESPIRATORY: Present: Cough, SOB GI: Present: Nausea, vomiting Absent: abdominal pain, no constipation, no diarrhea GENITOURINARY: Absent: dysuria, no frequency, no hematuria MUSKULOSKELETAL: Present: Myalgia Absent: back pain, no arthralgia SKIN: Absent: rash NEURO: Absent: headache *Physical Exam - Vital Signs Last Vital Signs Temp Pulse Resp BP Pulse Ox 99.4 F 116 H 16 98/61 95 06/06/19 07:35 06/06/19 07:35 06/06/19 07:35 06/06/19 07:35 06/06/19 07:35 - Physical Exam GENERAL: Well-appearing, well-nourished. No apparent distress. HEENT: Normocephalic, atraumatic. PERRL, EOM intact. CARDIOVASCULAR: Tachycardic rate. Normal S1, S2. Regular rhythm. PULMONARY: No evidence of respiratory distress. Lungs clear to auscultation bilaterally. No wheezing, rales or rhonchi. ABDOMEN: Soft, non-distended, non-tender. EXTREMITIES: Normal ROM in all four extremities. No gross deformities. SKIN: Warm, dry. No rash NEUROLOGICAL: No focal neurological deficits. ED Treatment Course - LABORATORY CBC & Chemistry Diagram: 06/06/19 08:20 06/06/19 08:20 - RADIOLOGY Radiology Studies Ordered: Category Date Time Status CHEST X-RAY PORTABLE* [RAD] Stat Radiology 06/06/19 08:01 Ordered Medical Decision Making - Medical Decision Making Hayder Pineda is a 54 yo M w a pmh of NIDDM, HTN, HLD and lymphoma on chemo here at [facility] who presents to the ER with 1 day of cough, fevers, chills, myalgias, and subjective feelings of dehydration. He states his whole body aches and needs some pain relief. He states whenever he takes a deep breath or coughs the pain is worsened. Patient states yesterday he felt nauseous and vomited twice. Vital Signs Temp Pulse Resp BP Pulse Ox 97.8 F 88 16 117/73 98 06/06/19 13:10 06/06/19 13:10 06/06/19 13:10 06/06/19 13:10 06/06/19 13:10 DDx IBNLT: Influenza, PNA, URI, electrolyte/metabolic disturbance, ACS, heart failure Plan: Labs, Urine, CXR, POCUS, EKG, re-assess POCUS Chest: Cardiac: The heart is hyperdynamic. There are no focal wall motion abnormalities. No pericardial effusion. IVC: Flat and collapses with respiration - Patient can likely tolerate IV hydration Lungs: Normal A-lines b/l, no B-lines, Normal Lung sliding in all lung anderson no sign of pneumothorax Influenza: Positive for influenza A Labs: Trop x2 negative, BNP WNL. Re-assessment: Patient feels much better after anti-pyretic and IV hydration and requests to be discharged. - Given immunocompromised state tamiflu sent to patient's pharmacy Dispo: Home with PCP FU - Strict Return precautions discussed with patient Discharge - Discharge Information Problems reviewed: Yes Clinical Impression/Diagnosis: Influenza A Condition: Improved Disposition: HOME - Admission No - Additional Discharge Information Prescriptions: Oseltamivir Phosphate [Tamiflu] 75 mg PO BID 5 Days #10 capsule - Follow up/Referral Referrals: Curtis Diego MD [Primary Care Provider] - - Patient Discharge Instructions Patient Printed Discharge Instructions: Influenza Additional Instructions: You came into the ER with fevers, chills, and body aches. you have the Flu. Drink plenty of fluids. Take ibuprofen/advil/motrin as needed for body aches and discomfort. You must schedule a follow up appointment with your primary care doctor in the next 3 to 5 days to make sure you are feeling well and being taken care of. Your emergency room workup is not complete without these follow ups. Come back to the ER immediately with any new or worsening concerns. Print Language: ARGENTINE - Post Discharge Activity
[2019-06-06 08:05] VITALS: BMI 29.9
[2019-06-06] MEDS ORDERED: ASPIRIN 81 MG CHEWABLE TABLETS ONE (08:14)
[2019-06-06 08:50] LABS: BASO % 0.5 % (0-2.0); EOS % 0.2 % (0-4.5); HEMATOCRIT 40.7 % (35.4-49); HEMOGLOBIN 13.8 GM/dL (11.7-16.9); LYMPH % 11.8 % (8-40); MCH 28.4 pg (25.7-33.7); MCHC 33.9 g/dl (32.0-35.9); MEAN CELL VOLUME 83.8 fl (80-96); MEAN PLT VOLUME 7.8 fl (7.5-11.1); MONO % 6.5 % (3.8-10.2); PLATELET COUNT 222 K/MM3 (134-434); RBC 4.85 M/mm3 (4.00-5.60); RDW 14.5 % (11.9-15.9); WHITE BLOOD COUNT 5.4 K/mm3 (4.0-10.0)
[2019-06-06 09:10] LABS: INR 1.13 (0.83-1.09); PROTHROMBIN TIME (PATIENT) 13.3 SEC (9.7-13.0)
[2019-06-06 09:13] LABS: ACTIVATED PTT 33.9 SECONDS (25.2-36.5)
[2019-06-06 09:19] LABS: ALBUMIN 4.3 g/dl (3.4-5.0); BILIRUBIN,TOTAL 0.5 mg/dL (0.2-1); BLOOD UREA NITROGEN 20.7 mg/dL (7-18); CALCIUM 9.7 mg/dL (8.5-10.1); CREATININE 1.7 mg/dL (0.55-1.3); N-TERMINAL BNP 113.5 pg/ml (5-125); TOT PROT 7.4 g/dl (6.4-8.2)
[2019-06-06] MEDS ORDERED: lamoTRIgine 100 MG TABLET PO ONE (11:41)
[2019-06-06] MEDS ORDERED: SODIUM CHLORIDE 0.9% 500 ML INFUS.BAG IV ONE (11:47)
[2019-06-06] MEDS ORDERED: ACETAMINOPHEN 1000 MG/100 ML VIAL (NON FORMULARY) IVPB ONE (11:51)
[2019-06-06] MEDS ORDERED: SODIUM CHLORIDE 0.9% 1000 ML INFUS.BAG IV ONE (11:51)
[2019-06-06 11:59] LABS: ANISOCYTOSIS 1+; MACROCYTOSIS 0; PLATELET ESTIMATE NORMAL
[2019-06-06 13:34] VITALS: BP 117/73; PULSE 88; TEMP 97.8
--- NOTE | 2019-06-06 13:49 | EKG ---
Test Reason : Blood Pressure : / mmHG Vent. Rate : 113 BPM Atrial Rate : 113 BPM P-R Int : 156 ms QRS Dur : 112 ms QT Int : 330 ms P-R-T Axes : 067 094 072 degrees QTc Int : 452 ms SINUS TACHYCARDIA RIGHTWARD AXIS BORDERLINE ECG WHEN COMPARED WITH ECG OF 07-JAN-2018 00:22, NO SIGNIFICANT CHANGE WAS FOUND Confirmed by Chetan De Jesus ([id number]) on 06/06/2019 1:49:13 PM Referred By: Confirmed By:Chetan De Jesus
== END 2019-06-06 14:30 | disposition home or self-care (01) ==
LOC: JER 07:20
PROC: 3E033NZ Introduction of Analgesics, Hypnotics, Sedatives into Peripheral Vein, Percutaneous Approach (ICD-10-PCS; principal; 2019-06-06)
DX: J09.X2 Influenza due to identified novel influenza A virus with other respiratory manifestations (principal); I10 Essential (primary) hypertension; E78.5 Hyperlipidemia, unspecified; E11.9 Type 2 diabetes mellitus without complications; Z79.84 Long term (current) use of oral hypoglycemic drugs; C85.90 Non-Hodgkin lymphoma, unspecified, unspecified site; Z79.899 Other long term (current) drug therapy; Z87.442 Personal history of urinary calculi
CPT/HCPCS: 36415; 71045-TC-FY; 80053; 82550; 82553; 83735; 83880; 84484; 85025; 85610; 85730; 87804; 93005; 93010; 96374; 99284-25; J0131

== ENCOUNTER 2020-06-04 10:41 | Inpatient (IN) | payer OTHER ==
[2020-06-04] MEDS ORDERED: ACETAMINOPHEN 500 MG TABLET (FP) PO ONE (11:27)
[2020-06-04] MEDS ORDERED: SODIUM CHLORIDE 1,000 ML IV STA (11:28)
[2020-06-04] MEDS ORDERED: ACETAMINOPHEN 325 MG TABLET (FP) ONE (11:43)
[2020-06-04 12:33] LABS: HEMATOCRIT 40.5 % (35.4-49); HEMOGLOBIN 13.9 GM/dL (11.7-16.9); MCH 28.9 pg (25.7-33.7); MCHC 34.3 g/dl (32.0-35.9); MEAN CELL VOLUME 84.2 fl (80-96); MEAN PLT VOLUME 7.5 fl (7.5-11.1); PLATELET COUNT 236 K/MM3 (134-434); RBC 4.81 M/mm3 (4.00-5.60)
[2020-06-04 12:40] LABS: POTASSIUM 4.1 mmol/L (3.5-5.1)
[2020-06-04 12:42] LABS: WHITE BLOOD COUNT 1.9 K/mm3 (4.0-10.0)
[2020-06-04 12:43] LABS: CALCIUM 8.9 mg/dL (8.5-10.1)
[2020-06-04 12:44] LABS: ALBUMIN 3.2 g/dl (3.4-5.0); BLOOD UREA NITROGEN 24.7 mg/dL (7-18)
[2020-06-04 12:47] LABS: CREATININE 1.5 mg/dL (0.55-1.3)
[2020-06-04 12:49] LABS: TOT PROT 6.2 g/dl (6.4-8.2)
[2020-06-04 12:50] LABS: BILIRUBIN,TOTAL 0.8 mg/dL (0.2-1)
[2020-06-04 15:07] LABS: BASO % 1.2 % (0-2.0); EOS % 3.2 % (0-4.5); HEMATOCRIT 40.5 % (35.4-49); HEMOGLOBIN 13.8 GM/dL (11.7-16.9); LYMPH % 62.8 % (8-40); MCH 29.2 pg (25.7-33.7); MCHC 34.2 g/dl (32.0-35.9); MEAN CELL VOLUME 85.4 fl (80-96); MEAN PLT VOLUME 8.1 fl (7.5-11.1); MONO % 30.4 % (3.8-10.2); NEUT % 2.4 % (42.8-82.8); PLATELET COUNT 227 K/MM3 (134-434); RBC 4.74 M/mm3 (4.00-5.60); RDW 13.9 % (11.9-15.9)
[2020-06-04] MEDS ORDERED: CEFEPIME HCL/D5W 2 GM/50 ML BAG IVPB ONE (15:11)
[2020-06-04] MEDS ORDERED: VANCOMYCIN 1 GM in D5W (PRE-DOCKED) 1,000 MG/250 ML IVPB ONE (15:11)
[2020-06-04 16:57] LABS: EPI CELLS 8 /uL (0-25.1); HYALINE CASTS 1 /uL (0-3.1); URINE APPEARANCE CLEAR; URINE BACTERIA 375 /uL (0-1359); URINE BILIRUBIN NEGATIVE (NEGATIVE); URINE COLOR YELLOW; URINE GLUCOSE (UA) TRACE (NEGATIVE); URINE KETONE NEGATIVE (NEGATIVE); URINE LEUK ESTERASE NEGATIVE (NEGATIVE); URINE NITRITE NEGATIVE (NEGATIVE); URINE PROTEIN 3+ (NEGATIVE); URINE RBC 5 /uL (0-23.9); URINE UROBILINOGEN 0.2 mg/dL (0.2-1.0); URINE WBC 5 /uL (0-25.8)
[2020-06-04 17:16] LABS: ANISOCYTOSIS 1+; MACROCYTOSIS 1+; PLATELET ESTIMATE NORMAL
[2020-06-04] MEDS ORDERED: VANCOMYCIN 1 GRAM (PRE-DOCKED) 1,000 MG/250 ML BAG IVPB ONE (17:19)
[2020-06-04] MEDS ORDERED: CEFEPIME 2 GM/100 ML BAG IVPB ONE (17:20)
[2020-06-04] MEDS ORDERED: ONDANSETRON 4 MG/2 ML VIAL IVPUSH PRN (17:36)
[2020-06-04] MEDS ORDERED: HYDROmorphone HCl 2 MG/ML VIAL IVPB PRN (17:36)
[2020-06-04] MEDS ORDERED: CEFEPIME 1 GM/100 ML BAG IVPB ONE (21:09)
[2020-06-04] MEDS: SODIUM CHLORIDE 1,000 ML IV SCH (21:21)
[2020-06-04] MEDS: CEFEPIME 1 GM in DEXTROSE 5%-WATER 1 GM/100 ML BAG IVPB SCH (21:21)
[2020-06-04] MEDS: INSULIN SLIDING SCALE (NOVOLOG) 1 VIAL SQ SCH (21:22)
[2020-06-04] MEDS: GABAPENTIN 300 MG CAPSULE PO SCH (22:13)
[2020-06-05] MEDS ORDERED: CEFEPIME HCL 1 GM VIAL (RESTRICTED TO ID) ONE (01:08)
[2020-06-05] MEDS ORDERED: DEXTROSE 5%-WATER 100 ML IVPB ONE (01:08)
[2020-06-05] MEDS: CEFEPIME 1 GM in DEXTROSE 5%-WATER 1 GM/100 ML BAG IVPB SCH (01:14)
[2020-06-05 01:53] VITALS: BMI 31.9
[2020-06-05] MEDS: SODIUM CHLORIDE 1,000 ML IV SCH ×2 (06:13→17:27)
[2020-06-05] MEDS: ACETAMINOPHEN 325 MG TABLET (FP) PO PRN (06:14)
[2020-06-05] MEDS: INSULIN SLIDING SCALE (NOVOLOG) 1 VIAL SQ SCH ×3 (06:15→17:32)
[2020-06-05 07:54] LABS: BASO % 0.9 % (0-2.0); EOS % 5.6 % (0-4.5); HEMATOCRIT 36.8 % (35.4-49); HEMOGLOBIN 12.7 GM/dL (11.7-16.9); LYMPH % 65.7 % (8-40); MCH 28.8 pg (25.7-33.7); MCHC 34.6 g/dl (32.0-35.9); MEAN CELL VOLUME 83.1 fl (80-96); MEAN PLT VOLUME 7.3 fl (7.5-11.1); NEUT % 0.8 % (42.8-82.8); PLATELET COUNT 215 K/MM3 (134-434); RBC 4.43 M/mm3 (4.00-5.60); RDW 14.3 % (11.9-15.9)
[2020-06-05 08:04] LABS: POTASSIUM 3.9 mmol/L (3.5-5.1)
[2020-06-05 08:06] LABS: CALCIUM 8.1 mg/dL (8.5-10.1)
[2020-06-05 08:07] LABS: ALBUMIN 2.8 g/dl (3.4-5.0); BLOOD UREA NITROGEN 13.6 mg/dL (7-18)
[2020-06-05 08:10] LABS: CREATININE 0.9 mg/dL (0.55-1.3)
[2020-06-05 08:12] LABS: BILIRUBIN,TOTAL 0.4 mg/dL (0.2-1); TOT PROT 5.7 g/dl (6.4-8.2)
[2020-06-05 08:25] LABS: MAGNESIUM 1.6 mg/dL (1.8-2.4)
[2020-06-05 08:30] LABS: WHITE BLOOD COUNT 1.5 K/mm3 (4.0-10.0)
[2020-06-05] MEDS ORDERED: PIPERACILLIN/TAZOBACTAM 3.375 GM VIAL IVPB ONE ×2 (09:15→17:16)
[2020-06-05] MEDS ORDERED: DEXTROSE 5%-WATER - 50 ML IVPB ONE ×2 (09:16→17:17)
[2020-06-05] MEDS: GABAPENTIN 300 MG CAPSULE PO SCH ×2 (09:18→22:19)
[2020-06-05] MEDS: PIPERACILLIN/TAZOB 3.375 GM 3.375 GM in DEXTROSE 5%-WATER - 50 ML IVPB SCH ×2 (09:18→17:25)
[2020-06-05 09:42] LABS: ANISOCYTOSIS 0; MACROCYTOSIS 0; PLATELET ESTIMATE NORMAL
[2020-06-05] MEDS: CEFEPIME HCL/D5W 1 GM/50 ML BAG IVPB SCH ×2 (11:32→19:22)
[2020-06-05] MEDS: FLUCONAZOLE 100 MG TABLET (UD) PO SCH (19:13)
[2020-06-05] MEDS: valACYclovir HCL 500 MG TABLET (FP) PO SCH (22:19)
[2020-06-06] MEDS ORDERED: PIPERACILLIN/TAZOBACTAM 3.375 GM VIAL IVPB ONE ×3 (01:30→16:29)
[2020-06-06] MEDS ORDERED: DEXTROSE 5%-WATER - 50 ML IVPB ONE ×3 (01:30→16:29)
[2020-06-06] MEDS: PIPERACILLIN/TAZOB 3.375 GM 3.375 GM in DEXTROSE 5%-WATER - 50 ML IVPB SCH ×3 (02:41→17:18)
[2020-06-06] MEDS: ACETAMINOPHEN 325 MG TABLET (FP) PO PRN ×2 (06:23→21:47)
[2020-06-06] MEDS: INSULIN SLIDING SCALE (NOVOLOG) 1 VIAL SQ SCH ×3 (06:25→17:18)
[2020-06-06 07:47] LABS: EOS % 6.1 % (0-4.5); HEMATOCRIT 37.4 % (35.4-49); LYMPH % 66.1 % (8-40); MCHC 34.8 g/dl (32.0-35.9); MEAN CELL VOLUME 83.4 fl (80-96); MEAN PLT VOLUME 7.3 fl (7.5-11.1); MONO % 27.1 % (3.8-10.2); NEUT % 0.7 % (42.8-82.8); PLATELET COUNT 227 K/MM3 (134-434); RBC 4.48 M/mm3 (4.00-5.60); RDW 14.1 % (11.9-15.9)
[2020-06-06 07:51] LABS: WHITE BLOOD COUNT 1.8 K/mm3 (4.0-10.0)
[2020-06-06 08:28] LABS: POTASSIUM 4.5 mmol/L (3.5-5.1)
[2020-06-06 08:42] LABS: CALCIUM 8.6 mg/dL (8.5-10.1)
[2020-06-06 08:43] LABS: ALBUMIN 2.8 g/dl (3.4-5.0); BLOOD UREA NITROGEN 11.1 mg/dL (7-18)
[2020-06-06 08:47] LABS: BILIRUBIN,TOTAL 0.6 mg/dL (0.2-1); TOT PROT 5.8 g/dl (6.4-8.2)
[2020-06-06] MEDS: FLUCONAZOLE 100 MG TABLET (UD) PO SCH (09:14)
[2020-06-06] MEDS: valACYclovir HCL 500 MG TABLET (FP) PO SCH ×2 (09:14→21:01)
[2020-06-06] MEDS: GABAPENTIN 300 MG CAPSULE PO SCH ×2 (09:14→21:01)
[2020-06-06 09:16] LABS: ANISOCYTOSIS 0; MACROCYTOSIS 0; PLATELET ESTIMATE NORMAL
[2020-06-06] MEDS ORDERED: INSULIN (NOVOLOG) ASPART 100 UNITS/ML 10ML VIAL ONE (11:08)
[2020-06-06] MEDS: SODIUM CHLORIDE 1,000 ML IV SCH (21:01)
[2020-06-06] MEDS: HYDROCORTISONE ACETATE 25 MG/SUPP.RECT PR SCH (21:01)
[2020-06-07] MEDS ORDERED: PIPERACILLIN/TAZOBACTAM 3.375 GM VIAL IVPB ONE ×3 (00:50→16:52)
[2020-06-07] MEDS ORDERED: DEXTROSE 5%-WATER - 50 ML IVPB ONE ×3 (00:50→16:52)
[2020-06-07] MEDS: SODIUM CHLORIDE 1,000 ML IV SCH (00:59)
[2020-06-07] MEDS: PIPERACILLIN/TAZOB 3.375 GM 3.375 GM in DEXTROSE 5%-WATER - 50 ML IVPB SCH ×3 (00:59→17:16)
[2020-06-07] MEDS: INSULIN SLIDING SCALE (NOVOLOG) 1 VIAL SQ SCH ×3 (06:05→17:16)
[2020-06-07] MEDS: GABAPENTIN 300 MG CAPSULE PO SCH ×2 (09:06→21:00)
[2020-06-07] MEDS: FLUCONAZOLE 100 MG TABLET (UD) PO SCH (09:06)
[2020-06-07] MEDS: valACYclovir HCL 500 MG TABLET (FP) PO SCH ×2 (09:06→21:00)
[2020-06-07] MEDS ORDERED: INSULIN (NOVOLOG) ASPART 100 UNITS/ML 10ML VIAL ONE (10:09)
[2020-06-07] MEDS: ACETAMINOPHEN 325 MG TABLET (FP) PO PRN (20:44)
[2020-06-07] MEDS: HYDROCORTISONE ACETATE 25 MG/SUPP.RECT PR SCH (21:01)
[2020-06-08] MEDS ORDERED: PIPERACILLIN/TAZOBACTAM 3.375 GM VIAL IVPB ONE (01:02)
[2020-06-08] MEDS ORDERED: DEXTROSE 5%-WATER - 50 ML IVPB ONE (01:02)
[2020-06-08] MEDS: PIPERACILLIN/TAZOB 3.375 GM 3.375 GM in DEXTROSE 5%-WATER - 50 ML IVPB SCH ×2 (01:17→09:32)
[2020-06-08 05:54] VITALS: BP 152/79; PULSE 90; TEMP 98.6
[2020-06-08] MEDS: INSULIN SLIDING SCALE (NOVOLOG) 1 VIAL SQ SCH (06:02)
[2020-06-08 08:03] LABS: POTASSIUM 3.7 mmol/L (3.5-5.1)
[2020-06-08 08:06] LABS: ALBUMIN 2.8 g/dl (3.4-5.0); BLOOD UREA NITROGEN 9.7 mg/dL (7-18); CALCIUM 8.6 mg/dL (8.5-10.1)
[2020-06-08 08:11] LABS: BILIRUBIN,TOTAL 0.5 mg/dL (0.2-1); TOT PROT 5.7 g/dl (6.4-8.2)
[2020-06-08 08:17] LABS: BASO % 0.9 % (0-2.0); EOS % 4.5 % (0-4.5); HEMATOCRIT 39.1 % (35.4-49); HEMOGLOBIN 13.4 GM/dL (11.7-16.9); MCH 28.7 pg (25.7-33.7); MCHC 34.3 g/dl (32.0-35.9); MEAN CELL VOLUME 83.5 fl (80-96); MEAN PLT VOLUME 7.6 fl (7.5-11.1); MONO % 27.6 % (3.8-10.2); PLATELET COUNT 247 K/MM3 (134-434); RBC 4.68 M/mm3 (4.00-5.60); RDW 14.1 % (11.9-15.9)
[2020-06-08] MEDS: GABAPENTIN 300 MG CAPSULE PO SCH (09:29)
[2020-06-08] MEDS: FLUCONAZOLE 100 MG TABLET (UD) PO SCH (09:29)
[2020-06-08] MEDS: valACYclovir HCL 500 MG TABLET (FP) PO SCH (09:29)
[2020-06-08 09:38] LABS: WHITE BLOOD COUNT 1.8 K/mm3 (4.0-10.0)
[2020-06-08 11:26] LABS: ANISOCYTOSIS 0; MACROCYTOSIS 0; PLATELET ESTIMATE NORMAL
== END 2020-06-08 11:55 | disposition home or self-care (01) | DRG 244 ==
LOC: JER 10:41 → JERBED 16:52 → INTOOBSV 16:52 → J7W 21:55 → OBSVTOIN 06-06 15:38
PROVIDERS: ADMIT Internal Medicine; ATTEND Internal Medicine
DX: K57.32 Diverticulitis of large intestine without perforation or abscess without bleeding (principal); D70.9 Neutropenia, unspecified; E11.22 Type 2 diabetes mellitus with diabetic chronic kidney disease; Z85.72 Personal history of non-Hodgkin lymphomas; I12.9 Hypertensive chronic kidney disease with stage 1 through stage 4 chronic kidney disease, or unspecified chronic kidney disease; N18.30 Chronic kidney disease, stage 3 unspecified; Z79.84 Long term (current) use of oral hypoglycemic drugs; K76.0 Fatty (change of) liver, not elsewhere classified; E78.5 Hyperlipidemia, unspecified; E21.3 Hyperparathyroidism, unspecified
CPT/HCPCS: 36415; 74177-TC; 80053; 81003; 82272; 82962; 83036; 83605; 83735; 85025; 85027; 86140; 87086; 87186; 88300-TC; 93005; 93010; 99285-25; C9803; G0378; U0003

== ENCOUNTER 2022-10-30 04:14 | Day surgery (SDC) | payer OTHER ==
[2022-10-28 17:16] VITALS: BMI 29.5
[2022-10-30] MEDS ORDERED: ROCURONIUM BROMIDE 50 MG/5 ML SYRINGE ONE (12:49)
[2022-10-30] MEDS ORDERED: MIDAZOLAM HCL 2 MG/2 ML SINGLE DOSE VIAL ONE (12:49)
[2022-10-30] MEDS ORDERED: DEXAMETHASONE SOD PHOSPHATE 4 MG/1 ML VIAL ONE (13:25)
[2022-10-30] MEDS ORDERED: ceFAZolin SODIUM 1 GM VIAL ONE (13:25)
[2022-10-30] MEDS ORDERED: ONDANSETRON 4 MG/2 ML VIAL ONE (13:25)
[2022-10-30] MEDS ORDERED: LIDOCAINE 1%/EPI 1:100000 (20 ML MULTI DOSE VIAL) IJ ONE ×3 (13:26)
[2022-10-30] MEDS ORDERED: ceFAZolin SODIUM 1 GM VIAL IVPB ONE (13:30)
[2022-10-30] MEDS ORDERED: NEOSTIGMINE METHYLSULFATE 0.5 MG/1 ML - 10 ML MDV ONE (13:57)
[2022-10-30] MEDS ORDERED: GLYCOPYRROLATE 0.2 MG/1 ML VIAL ONE (13:57)
[2022-10-30] MEDS ORDERED: BACITRACIN ZINC 15 GM TUBE TOPICAL OINTMENT ONE (14:17)
[2022-10-30] MEDS ORDERED: BACITRACIN ZINC 15 GM TUBE TOPICAL OINTMENT TP ONE (14:23)
[2022-10-30] MEDS ORDERED: KETOROLAC TROMETHAMINE 30 MG/1 ML VIAL ONE (14:31)
[2022-10-30] MEDS ORDERED: oxyCODONE HCL 5 MG TABLET PO PRN (14:49)
[2022-10-30] MEDS ORDERED: ONDANSETRON 4 MG/2 ML VIAL IVPUSH PRN (14:49)
[2022-10-30] MEDS ORDERED: ACETAMINOPHEN 1000 MG/100 ML BAG IVPB PRN (14:50)
[2022-10-30] MEDS ORDERED: ACETAMINOPHEN 1000 MG/100 ML BAG IVPB ONE (14:58)
[2022-10-30] MEDS ORDERED: LACTATED RINGERS SOLUTION 1,000 ML IV SCH (15:00)
[2022-10-30 17:09] VITALS: RESP 16
[2022-10-30 18:07] VITALS: BP 154/91; PULSE 87; TEMP 98
== END 2022-10-30 18:00 | disposition home or self-care (01) ==
LOC: JASU-SURG 04:14
PROVIDERS: ATTEND Otolaryngology
PROC: 09BM8ZZ Excision of Nasal Septum, Via Natural or Artificial Opening Endoscopic (ICD-10-PCS; principal; 2022-10-30 12:00)
PROC: 09BL8ZZ Excision of Nasal Turbinate, Via Natural or Artificial Opening Endoscopic (ICD-10-PCS; 2022-10-30 12:00)
DX: J34.2 Deviated nasal septum (principal); J34.3 Hypertrophy of nasal turbinates; G47.33 Obstructive sleep apnea (adult) (pediatric)
CPT/HCPCS: 88304-TC; 94760

== ENCOUNTER 2022-11-04 20:44 | Emergency (ER) | payer OTHER ==
[2022-11-04 20:53] VITALS: BMI 29.0
[2022-11-04] MEDS ORDERED: ACETAMINOPHEN 1000 MG/100 ML BAG IVPB ONE (22:48)
[2022-11-04] MEDS ORDERED: SODIUM CHLORIDE 0.9% 500 ML INFUS.BAG IV ONE (22:48)
[2022-11-04] MEDS ORDERED: ACETAMINOPHEN INJECTION 100 ML IVPB ONE (22:55)
[2022-11-04 23:34] LABS: BASO % 0.4 % (0-2.0); EOS % 1.7 % (0-4.5); HEMATOCRIT 41.5 % (35.4-49); HEMOGLOBIN 14.1 GM/dL (11.7-16.9); MCH 27.8 pg (25.7-33.7); MCHC 33.9 g/dl (32.0-35.9); MEAN CELL VOLUME 82.2 fl (80-96); MEAN PLT VOLUME 7.1 fl (7.5-11.1); MONO % 7.1 % (3.8-10.2); NEUT % 66.8 % (42.8-82.8); PLATELET COUNT 226 10^3/uL (134-434); RBC 5.05 M/mm3 (4.00-5.60); RDW 15.6 % (11.9-15.9); WHITE BLOOD COUNT 8.4 K/mm3 (4.0-10.0)
[2022-11-04 23:41] LABS: INR 1.03 (0.83-1.09)
[2022-11-04 23:44] LABS: ACTIVATED PTT 31.5 SECONDS (25.2-36.5)
[2022-11-04 23:54] LABS: POTASSIUM 4.4 mmol/L (3.5-5.1)
[2022-11-04 23:56] LABS: ALBUMIN 3.2 g/dl (3.4-5.0); CALCIUM 8.3 mg/dL (8.5-10.1); MAGNESIUM 1.8 mg/dL (1.8-2.4)
[2022-11-04 23:59] LABS: CREATININE 1.3 mg/dL (0.55-1.3)
[2022-11-05 00:01] LABS: BILIRUBIN,TOTAL 0.5 mg/dL (0.2-1)
[2022-11-05 06:00] VITALS: BP 138/91; PULSE 94; RESP 15; TEMP 98.1
== END 2022-11-05 06:11 | disposition home or self-care (01) ==
LOC: JER 20:44
PROC: 3E033NZ Introduction of Analgesics, Hypnotics, Sedatives into Peripheral Vein, Percutaneous Approach (ICD-10-PCS; principal; 2022-11-04)
DX: R10.32 Left lower quadrant pain (principal); K57.32 Diverticulitis of large intestine without perforation or abscess without bleeding; R11.0 Nausea; R68.83 Chills (without fever); R00.0 Tachycardia, unspecified
CPT/HCPCS: 36415; 71045-TC-FY; 74177-TC; 80053; 83605; 83690; 83735; 85025; 85610; 85730; 86850; 86900; 86901; 93005; 93010; 99285-25; Q9967

== ENCOUNTER 2023-04-09 13:29 | Observation (INO) | payer OTHER ==
[2023-04-09] MEDS ORDERED: ACETAMINOPHEN 1000 MG/100 ML BAG IVPB ONE (14:34)
[2023-04-09] MEDS ORDERED: ACETAMINOPHEN INJECTION 100 ML IVPB ONE ×2 (15:17→21:05)
[2023-04-09 15:21] LABS: BASO % 1.1 % (0-2.0); HEMATOCRIT 38.4 % (35.4-49); HEMOGLOBIN 13.1 GM/dL (11.7-16.9); LYMPH % 35.5 % (8-40); MCH 28.6 pg (25.7-33.7); MCHC 34.1 g/dl (32.0-35.9); MEAN CELL VOLUME 83.8 fl (80-96); MEAN PLT VOLUME 7.2 fl (7.5-11.1); MONO % 8.6 % (3.8-10.2); NEUT % 51.8 % (42.8-82.8); PLATELET COUNT 203 10^3/uL (134-434); RBC 4.58 M/mm3 (4.00-5.60); RDW 14.5 % (11.9-15.9); WHITE BLOOD COUNT 4.3 K/mm3 (4.0-10.0)
[2023-04-09 15:24] LABS: EPI CELLS 11 /uL (0-25.1); HYALINE CASTS 1 /uL (0-3.1); PH,URINE 5.5 (5.0-8.0); URINE APPEARANCE CLOUDY; URINE BACTERIA 63 /uL (0-1359); URINE BILIRUBIN NEGATIVE (NEGATIVE); URINE COLOR YELLOW; URINE GLUCOSE (UA) TRACE (NEGATIVE); URINE KETONE NEGATIVE (NEGATIVE); URINE LEUK ESTERASE NEGATIVE (NEGATIVE); URINE NITRITE NEGATIVE (NEGATIVE); URINE PROTEIN 4+ (NEGATIVE); URINE RBC 10 /uL (0-23.9); URINE UROBILINOGEN 0.2 mg/dL (0.2-1.0)
[2023-04-09] MEDS ORDERED: ALBUTEROL SO4 2.5/IPRATROPIUM 0.5 INH SOL 3 ML VIAL.NEB. NEB ONE ×2 (15:32→15:43)
[2023-04-09] MEDS ORDERED: ALBUTEROL SO4 2.5/IPRATROPIUM 0.5 INH SOL 3 ML VIAL.NEB. NEB SCH (15:45)
[2023-04-09 15:46] LABS: POTASSIUM 4.1 mmol/L (3.5-5.1)
[2023-04-09 15:49] LABS: CALCIUM 7.6 mg/dL (8.5-10.1)
[2023-04-09 15:53] LABS: CREATININE 1.4 mg/dL (0.55-1.3)
[2023-04-09 15:55] LABS: BILIRUBIN,TOTAL 0.5 mg/dL (0.2-1)
[2023-04-09 16:02] LABS: BLOOD UREA NITROGEN 21.2 mg/dL (7-18); TOT PROT 5.6 g/dl (6.4-8.2)
[2023-04-09] MEDS ORDERED: DOCUSATE SODIUM 100 MG CAPSULE (FP) PO PRN (19:54)
[2023-04-09] MEDS ORDERED: SODIUM CHLORIDE 1,000 ML IV SCH (20:00)
[2023-04-09 20:12] LABS: URINE WBC 145.5 /uL (0-25.8)
[2023-04-09] MEDS: ACETAMINOPHEN 1000 MG/100 ML BAG IVPB PRN (21:15)
[2023-04-09 22:37] VITALS: RESP 18
[2023-04-09] MEDS: INSULIN SLIDING SCALE (NOVOLOG) 1 VIAL SQ SCH (22:37)
[2023-04-10 00:33] VITALS: BMI 28.0
[2023-04-10] MEDS: INSULIN SLIDING SCALE (NOVOLOG) 1 VIAL SQ SCH ×3 (06:39→18:33)
[2023-04-10 09:15] LABS: BASO % 0.9 % (0-2.0); EOS % 2.5 % (0-4.5); HEMOGLOBIN 13.5 GM/dL (11.7-16.9); LYMPH % 30.3 % (8-40); MCH 29.1 pg (25.7-33.7); MCHC 35.6 g/dl (32.0-35.9); MEAN CELL VOLUME 81.7 fl (80-96); MEAN PLT VOLUME 7.4 fl (7.5-11.1); MONO % 7.2 % (3.8-10.2); NEUT % 59.1 % (42.8-82.8); PLATELET COUNT 203 10^3/uL (134-434); RBC 4.66 M/mm3 (4.00-5.60); RDW 14.7 % (11.9-15.9); WHITE BLOOD COUNT 4.3 K/mm3 (4.0-10.0)
[2023-04-10 09:27] LABS: POTASSIUM 4.3 mmol/L (3.5-5.1)
[2023-04-10 09:29] LABS: BLOOD UREA NITROGEN 18.4 mg/dL (7-18); MAGNESIUM 1.8 mg/dL (1.8-2.4)
[2023-04-10 09:32] LABS: PHOSPHOROUS 2.9 mg/dL (2.5-4.9)
[2023-04-10 09:33] LABS: CREATININE 1.2 mg/dL (0.55-1.3)
[2023-04-10] MEDS: ACETAMINOPHEN 1000 MG/100 ML BAG IVPB PRN (09:47)
[2023-04-10] MEDS ORDERED: RAMIPRIL 5 MG CAPSULE PO SCH ×2 (10:00→11:00)
[2023-04-10 14:57] VITALS: BP 157/92; TEMP 98.7
[2023-04-10 16:07] VITALS: PULSE 98
[2023-04-10] MEDS ORDERED: ACETAMINOPHEN 325 MG TABLET (FP) PO PRN (22:00)
[2023-04-10] MEDS ORDERED: ROSUVASTATIN CA 20 MG TABLET PO SCH (22:00)
== END 2023-04-10 18:30 | disposition home or self-care (01) ==
LOC: JER 13:29 → JERBED 16:21 → J4S 21:35
PROVIDERS: ADMIT Internal Medicine; ATTEND Family Medicine
PROC: 3E033GC Introduction of Other Therapeutic Substance into Peripheral Vein, Percutaneous Approach (ICD-10-PCS; principal; 2023-04-09)
PROC: 3E0337Z Introduction of Electrolytic and Water Balance Substance into Peripheral Vein, Percutaneous Approach (ICD-10-PCS; 2023-04-09)
PROC: 3E0F7SF Introduction of Other Gas into Respiratory Tract, Via Natural or Artificial Opening (ICD-10-PCS; 2023-04-09)
DX: R07.89 Other chest pain (principal); R05.9 Cough, unspecified; E11.22 Type 2 diabetes mellitus with diabetic chronic kidney disease; E11.65 Type 2 diabetes mellitus with hyperglycemia; I12.9 Hypertensive chronic kidney disease with stage 1 through stage 4 chronic kidney disease, or unspecified chronic kidney disease; C82.90 Follicular lymphoma, unspecified, unspecified site; N18.32 Chronic kidney disease, stage 3b; Z79.84 Long term (current) use of oral hypoglycemic drugs
CPT/HCPCS: 0241U-QW; 36415; 71045-TC-FY; 80048; 80053; 81003; 82962; 83735; 84100; 84484; 85025; 87086; 93005; 93010; 94761; 96361; 96374; 96375; 99285-25; G0378

== ENCOUNTER 2023-06-08 13:28 | Observation (INO) | payer OTHER ==
[2023-06-08] MEDS ORDERED: ACETAMINOPHEN 1000 MG/100 ML BAG IVPB ONE (14:27)
[2023-06-08] MEDS ORDERED: SODIUM CHLORIDE 0.9% 500 ML INFUS.BAG IV ONE (14:27)
[2023-06-08] MEDS ORDERED: ACETAMINOPHEN INJECTION 100 ML IVPB ONE (14:39)
[2023-06-08 14:45] LABS: BASO % 0.7 % (0-2.0); EOS % 2.5 % (0-4.5); HEMATOCRIT 38.8 % (35.4-49); HEMOGLOBIN 13.6 GM/dL (11.7-16.9); LYMPH % 36.2 % (8-40); MCH 28.9 pg (25.7-33.7); MEAN CELL VOLUME 82.6 fl (80-96); MONO % 6.6 % (3.8-10.2); PLATELET COUNT 252 10^3/uL (134-434); WHITE BLOOD COUNT 6.2 K/mm3 (4.0-10.0)
[2023-06-08 14:47] LABS: EPI CELLS 9 /uL (0-25.1); HYALINE CASTS 1 /uL (0-3.1); PH,URINE 5.5 (5.0-8.0); URINE APPEARANCE CLEAR; URINE BACTERIA 46 /uL (0-1359); URINE BILIRUBIN NEGATIVE (NEGATIVE); URINE COLOR YELLOW; URINE GLUCOSE (UA) TRACE (NEGATIVE); URINE KETONE NEGATIVE (NEGATIVE); URINE LEUK ESTERASE NEGATIVE (NEGATIVE); URINE NITRITE NEGATIVE (NEGATIVE); URINE PROTEIN 4+ (NEGATIVE); URINE RBC 17 /uL (0-23.9); URINE UROBILINOGEN 0.2 mg/dL (0.2-1.0); URINE WBC 37 /uL (0-25.8)
[2023-06-08 15:05] LABS: CHLORIDE 108 mmol/L (98-107); POTASSIUM 4.7 mmol/L (3.5-5.1); SODIUM 134 mmol/L (136-145)
[2023-06-08 15:06] LABS: CALCIUM 8.5 mg/dL (8.5-10.1)
[2023-06-08 15:07] LABS: ALBUMIN 3.3 g/dl (3.4-5.0); ANION GAP 6 mmol/L (4-13); BLOOD UREA NITROGEN 37.7 mg/dL (7-18); CO2 20 mmol/L (21-32); MAGNESIUM 1.9 mg/dL (1.8-2.4)
[2023-06-08 15:09] LABS: GLUCOSE,RANDOM 152 mg/dL (74-106)
[2023-06-08 15:10] LABS: CREATININE 1.9 mg/dL (0.55-1.3); PHOSPHOROUS 3.3 mg/dL (2.5-4.9)
[2023-06-08 15:12] LABS: BILIRUBIN,TOTAL 0.4 mg/dL (0.2-1)
[2023-06-08 15:13] LABS: ALK PHOS 96 U/L (45-117)
[2023-06-08 15:24] LABS: SGPT/ALT 31 U/L (13-61); TOT PROT 6.2 g/dl (6.4-8.2)
[2023-06-08] MEDS ORDERED: LACTATED RINGERS SOLUTION 1000 ML INFUS.BAG IV ONE (16:13)
[2023-06-08 18:51] LABS: POTASSIUM 4.3 mmol/L (3.5-5.1)
[2023-06-08 18:54] LABS: BLOOD UREA NITROGEN 33.4 mg/dL (7-18)
[2023-06-08 18:57] LABS: CREATININE 1.5 mg/dL (0.55-1.3)
[2023-06-08] MEDS ORDERED: CEFTRIAXONE 1,000 MG in DEXTROSE 5%-WATER - 50 ML IVPB ONE (18:58)
[2023-06-08 18:59] LABS: BILIRUBIN,TOTAL 0.4 mg/dL (0.2-1)
[2023-06-08 19:00] LABS: TOT PROT 5.6 g/dl (6.4-8.2)
[2023-06-08] MEDS ORDERED: CEFTRIAXONE 1 GM/50 ML BAG ONE (20:05)
[2023-06-08] MEDS ORDERED: PIPERACILLIN/TAZOB 3.375 GM 3.375 GM/50 ML BAG IVPB ONE (20:19)
[2023-06-08] MEDS: LACTATED RINGERS SOLUTION 1,000 ML/1,000 ML INFUS.BAG IV SCH (20:28)
[2023-06-08] MEDS: PIPERACILLIN/TAZOB 3.375 GM 3.375 GM in DEXTROSE 5%-WATER - 50 ML IVPB SCH (20:28)
[2023-06-08] MEDS ORDERED: ACETAMINOPHEN 1000 MG/100 ML BAG IVPB PRN (21:00)
[2023-06-08] MEDS: INSULIN ASPART SLIDING SCALE (NOVOLOG) 1 VIAL SQ SCH (23:03)
[2023-06-09] MEDS: PIPERACILLIN/TAZOB 3.375 GM 3.375 GM in DEXTROSE 5%-WATER - 50 ML IVPB SCH ×3 (02:44→18:46)
[2023-06-09] MEDS: INSULIN ASPART SLIDING SCALE (NOVOLOG) 1 VIAL SQ SCH ×4 (07:28→21:33)
[2023-06-09 09:41] LABS: BASO % 0.7 % (0-2.0); EOS % 2.7 % (0-4.5); HEMATOCRIT 37.6 % (35.4-49); HEMOGLOBIN 12.9 GM/dL (11.7-16.9); LYMPH % 29.3 % (8-40); MCH 28.2 pg (25.7-33.7); MCHC 34.4 g/dl (32.0-35.9); MEAN CELL VOLUME 81.9 fl (80-96); MEAN PLT VOLUME 7.3 fl (7.5-11.1); MONO % 5.2 % (3.8-10.2); NEUT % 62.1 % (42.8-82.8); PLATELET COUNT 233 10^3/uL (134-434); RBC 4.59 M/mm3 (4.00-5.60); RDW 15.4 % (11.9-15.9); WHITE BLOOD COUNT 4.9 K/mm3 (4.0-10.0)
[2023-06-09 09:55] LABS: POTASSIUM 4.1 mmol/L (3.5-5.1)
[2023-06-09 09:57] LABS: CALCIUM 8.6 mg/dL (8.5-10.1)
[2023-06-09 09:58] LABS: BLOOD UREA NITROGEN 21.5 mg/dL (7-18); MAGNESIUM 1.7 mg/dL (1.8-2.4)
[2023-06-09 10:01] LABS: CREATININE 1.3 mg/dL (0.55-1.3); PHOSPHOROUS 2.7 mg/dL (2.5-4.9)
[2023-06-09 10:02] LABS: TOT PROT 6.1 g/dl (6.4-8.2)
[2023-06-09 10:03] LABS: BILIRUBIN,TOTAL 0.4 mg/dL (0.2-1)
[2023-06-09] MEDS: metoPROLOL SUCCINATE 25 MG TAB.SR.24H (FP) PO SCH (10:05)
[2023-06-09] MEDS: LACTATED RINGERS SOLUTION 1,000 ML/1,000 ML INFUS.BAG IV SCH ×2 (10:22→18:45)
[2023-06-09] MEDS ORDERED: INSULIN (NOVOLOG) ASPART 100 UNITS/ML 10ML VIAL ONE (11:08)
[2023-06-09 12:08] VITALS: BMI 27.6
[2023-06-09] MEDS: PIPERACILLIN/TAZOB 4.5 GM 4.5 GM in DEXTROSE 5%-WATER 100 ML IVPB SCH (17:39)
[2023-06-10] MEDS: PIPERACILLIN/TAZOB 4.5 GM 4.5 GM in DEXTROSE 5%-WATER 100 ML IVPB SCH ×3 (02:02→18:33)
[2023-06-10] MEDS: INSULIN ASPART SLIDING SCALE (NOVOLOG) 1 VIAL SQ SCH ×4 (07:02→21:32)
[2023-06-10] MEDS: metoPROLOL SUCCINATE 25 MG TAB.SR.24H (FP) PO SCH (09:54)
[2023-06-10] MEDS: LACTATED RINGERS SOLUTION 1,000 ML/1,000 ML INFUS.BAG IV SCH ×2 (10:10→21:22)
[2023-06-10 15:11] LABS: EPI CELLS 24 /uL (0-25.1); HYALINE CASTS 1 /uL (0-3.1); URINE APPEARANCE CLEAR; URINE BACTERIA 7 /uL (0-1359); URINE BILIRUBIN NEGATIVE (NEGATIVE); URINE COLOR YELLOW; URINE GLUCOSE (UA) 1+ (NEGATIVE); URINE KETONE NEGATIVE (NEGATIVE); URINE LEUK ESTERASE NEGATIVE (NEGATIVE); URINE NITRITE NEGATIVE (NEGATIVE); URINE PROTEIN 4+ (NEGATIVE); URINE RBC 20 /uL (0-23.9); URINE UROBILINOGEN 0.2 mg/dL (0.2-1.0)
[2023-06-10 15:38] LABS: URINE WBC 81 /uL (0-25.8)
[2023-06-11] MEDS: PIPERACILLIN/TAZOB 4.5 GM 4.5 GM in DEXTROSE 5%-WATER 100 ML IVPB SCH ×3 (01:44→18:14)
[2023-06-11] MEDS: INSULIN ASPART SLIDING SCALE (NOVOLOG) 1 VIAL SQ SCH ×4 (07:17→21:55)
[2023-06-11] MEDS: metoPROLOL SUCCINATE 25 MG TAB.SR.24H (FP) PO SCH (10:05)
[2023-06-11] MEDS: LACTATED RINGERS SOLUTION 1,000 ML/1,000 ML INFUS.BAG IV SCH (10:06)
[2023-06-11] MEDS ORDERED: LACTATED RINGERS SOLUTION 1,000 ML/1,000 ML INFUS.BAG IV SCH (16:05)
[2023-06-11 22:22] VITALS: RESP 20
[2023-06-12] MEDS: PIPERACILLIN/TAZOB 4.5 GM 4.5 GM in DEXTROSE 5%-WATER 100 ML IVPB SCH ×2 (02:11→10:04)
[2023-06-12] MEDS: INSULIN ASPART SLIDING SCALE (NOVOLOG) 1 VIAL SQ SCH (06:10)
[2023-06-12 07:28] VITALS: BP 131/85; PULSE 67; TEMP 98.2
[2023-06-12] MEDS: metoPROLOL SUCCINATE 25 MG TAB.SR.24H (FP) PO SCH (10:04)
[2023-06-12 10:27] LABS: POTASSIUM 3.9 mmol/L (3.5-5.1)
[2023-06-12 10:31] LABS: BLOOD UREA NITROGEN 13.4 mg/dL (7-18); CALCIUM 8.9 mg/dL (8.5-10.1)
[2023-06-12 10:32] LABS: ALBUMIN 3.2 g/dl (3.4-5.0)
[2023-06-12 10:35] LABS: CREATININE 1.7 mg/dL (0.55-1.3)
[2023-06-12 10:36] LABS: BILIRUBIN,TOTAL 0.7 mg/dL (0.2-1); TOT PROT 6.1 g/dl (6.4-8.2)
== END 2023-06-12 11:34 | disposition home or self-care (01) ==
LOC: JER 13:28 → JERBED 17:30 → J8W 06-09 00:04
PROVIDERS: ADMIT Internal Medicine; ATTEND Internal Medicine
PROC: 3E033NZ Introduction of Analgesics, Hypnotics, Sedatives into Peripheral Vein, Percutaneous Approach (ICD-10-PCS; principal; 2023-06-08)
PROC: 3E033NZ Introduction of Analgesics, Hypnotics, Sedatives into Peripheral Vein, Percutaneous Approach (ICD-10-PCS; 2023-06-08)
PROC: 3E03329 Introduction of Other Anti-infective into Peripheral Vein, Percutaneous Approach (ICD-10-PCS; 2023-06-08)
PROC: 3E0337Z Introduction of Electrolytic and Water Balance Substance into Peripheral Vein, Percutaneous Approach (ICD-10-PCS; 2023-06-08)
DX: N17.9 Acute kidney failure, unspecified (principal); K57.92 Diverticulitis of intestine, part unspecified, without perforation or abscess without bleeding; R30.0 Dysuria; N18.9 Chronic kidney disease, unspecified; E11.9 Type 2 diabetes mellitus without complications
CPT/HCPCS: 36415; 74176-TC; 80053; 81003; 82962; 83735; 84100; 85025; 86140; 86850; 86900; 86901; 87086; 87338; 96361; 96365; 96367; 96368; 96375; 99285-25; G0378; J0131

== ENCOUNTER 2023-07-24 12:42 | Inpatient (IN) | payer OTHER ==
[2023-07-24] MEDS ORDERED: ACETAMINOPHEN INJECTION 100 ML IVPB ONE (13:54)
[2023-07-24 14:01] LABS: BASO % 0.8 % (0-2.0); EOS % 1.2 % (0-4.5); HEMATOCRIT 38.9 % (35.4-49); HEMOGLOBIN 13.3 GM/dL (11.7-16.9); LYMPH % 35.8 % (8-40); MCH 28.6 pg (25.7-33.7); MCHC 34.2 g/dl (32.0-35.9); MEAN CELL VOLUME 83.7 fl (80-96); MEAN PLT VOLUME 7.1 fl (7.5-11.1); MONO % 7.7 % (3.8-10.2); NEUT % 54.5 % (42.8-82.8); PLATELET COUNT 217 10^3/uL (134-434); RBC 4.65 M/mm3 (4.00-5.60)
[2023-07-24] MEDS: ACETAMINOPHEN 1000 MG/100 ML BAG IVPB ONE (14:03)
[2023-07-24 14:11] LABS: INR 1.02 (0.83-1.09); PROTHROMBIN TIME (PATIENT) 11.8 SEC (9.7-13.0)
[2023-07-24 14:14] LABS: ACTIVATED PTT 32.7 SECONDS (25.2-36.5)
[2023-07-24 14:28] LABS: POTASSIUM 4.6 mmol/L (3.5-5.1)
[2023-07-24 14:30] LABS: MAGNESIUM 2.5 mg/dL (1.8-2.4)
[2023-07-24 14:31] LABS: ALBUMIN 3.6 g/dl (3.4-5.0); BLOOD UREA NITROGEN 53.1 mg/dL (7-18); CALCIUM 8.8 mg/dL (8.5-10.1)
[2023-07-24 14:34] LABS: CREATININE 1.6 mg/dL (0.55-1.3); PHOSPHOROUS 4.7 mg/dL (2.5-4.9)
[2023-07-24 14:36] LABS: BILIRUBIN,TOTAL 0.4 mg/dL (0.2-1)
[2023-07-24 14:48] LABS: TOT PROT 6.5 g/dl (6.4-8.2)
[2023-07-24] MEDS: LACTATED RINGERS SOLUTION 1000 ML INFUS.BAG IV ONE ×3 (14:54→19:34)
[2023-07-24 15:53] LABS: CHOLESTEROL 211 mg/dL (50-200)
[2023-07-24 15:55] LABS: LDL CHOLESTEROL (ONLY SJRH) 68 mg/dL (5-100)
[2023-07-24 15:56] LABS: HDL CHOLESTEROL 26 mg/dL (40-60)
[2023-07-24 21:26] LABS: EPI CELLS 1 /uL (0-25.1); HYALINE CASTS 1 /uL (0-3.1); URINE APPEARANCE CLEAR; URINE BACTERIA 2 /uL (0-1359); URINE BILIRUBIN NEGATIVE (NEGATIVE); URINE COLOR YELLOW; URINE GLUCOSE (UA) 3+ (NEGATIVE); URINE KETONE NEGATIVE (NEGATIVE); URINE LEUK ESTERASE NEGATIVE (NEGATIVE); URINE NITRITE NEGATIVE (NEGATIVE); URINE PROTEIN 2+ (NEGATIVE); URINE RBC 7 /uL (0-23.9); URINE UROBILINOGEN 0.2 mg/dL (0.2-1.0); URINE WBC 2 /uL (0-25.8)
[2023-07-24] MEDS: DEXTROSE 5%-WATER - 1,000 ML IV SCH (23:40)
[2023-07-24] MEDS: INSULIN REGULAR 100 UNITS in SODIUM CHLORIDE 99 ML IVPB SCH (23:40)
[2023-07-25 00:21] VITALS: BMI 27.3
[2023-07-25 07:05] LABS: POTASSIUM 3.7 mmol/L (3.5-5.1)
[2023-07-25 07:10] LABS: CALCIUM 8.5 mg/dL (8.5-10.1)
[2023-07-25 07:12] LABS: ALBUMIN 3.2 g/dl (3.4-5.0); BLOOD UREA NITROGEN 32.7 mg/dL (7-18)
[2023-07-25 07:14] LABS: CREATININE 1.1 mg/dL (0.55-1.3); PHOSPHOROUS 3.1 mg/dL (2.5-4.9); TOT PROT 5.8 g/dl (6.4-8.2)
[2023-07-25 07:16] LABS: BILIRUBIN,TOTAL 0.5 mg/dL (0.2-1)
[2023-07-25 07:45] LABS: BASO % 0.5 % (0-2.0); EOS % 1.2 % (0-4.5); HEMATOCRIT 38.4 % (35.4-49); HEMOGLOBIN 12.9 GM/dL (11.7-16.9); LYMPH % 25.5 % (8-40); MCH 27.9 pg (25.7-33.7); MCHC 33.5 g/dl (32.0-35.9); MEAN CELL VOLUME 83.4 fl (80-96); MEAN PLT VOLUME 7.2 fl (7.5-11.1); MONO % 6.4 % (3.8-10.2); NEUT % 66.4 % (42.8-82.8); PLATELET COUNT 190 10^3/uL (134-434); RBC 4.61 M/mm3 (4.00-5.60); WHITE BLOOD COUNT 5.1 K/mm3 (4.0-10.0)
[2023-07-25] MEDS: PANTOPRAZOLE SODIUM 40 MG VIAL IVPUSH SCH (09:46)
[2023-07-25] MEDS: HEPARIN NA (PORCINE) 5,000 UNITS/ML 1ML VIAL SQ SCH (09:46)
[2023-07-25] MEDS: DEXTROSE 5%-LACTATED RINGERS 1,000 ML IV SCH (09:46)
[2023-07-25] MEDS: MUPIROCIN 2% TOPICAL OINTMENT FOR DECOLONIZATION NS SCH (09:47)
[2023-07-25 10:50] LABS: POTASSIUM 3.9 mmol/L (3.5-5.1)
[2023-07-25 10:53] LABS: CALCIUM 8.9 mg/dL (8.5-10.1)
[2023-07-25 10:56] LABS: CREATININE 1.1 mg/dL (0.55-1.3)
[2023-07-25 14:41] LABS: POTASSIUM 3.9 mmol/L (3.5-5.1)
[2023-07-25 14:43] LABS: CALCIUM 8.8 mg/dL (8.5-10.1)
[2023-07-25 14:44] LABS: BLOOD UREA NITROGEN 25.7 mg/dL (7-18)
[2023-07-25 14:47] LABS: CREATININE 1.1 mg/dL (0.55-1.3)
[2023-07-25] MEDS: DEXTROSE 10%-WATER - 1,000 ML IV SCH (15:06)
[2023-07-25] MEDS: INSULIN REGULAR 100 UNITS in SODIUM CHLORIDE 99 ML IVPB SCH (15:10)
[2023-07-25] MEDS: KCL 10 MEQ IVPB 10 MEQ/100 ML INFUS.BAG IVPB SCH ×2 (15:25→21:29)
[2023-07-25] MEDS: DEXTROSE 50%-WATER 25 GM/50 ML DISP.SYRIN IVPUSH PRN (16:37)
[2023-07-25] MEDS ORDERED: GEMFIBROZIL 600 MG TABLET (FP) PO SCH (19:29)
[2023-07-25] MEDS: GEMFIBROZIL 600 MG TABLET (FP) PO SCH (19:45)
[2023-07-25 20:48] LABS: CHLORIDE 104 mmol/L (98-107); POTASSIUM 3.5 mmol/L (3.5-5.1); SODIUM 135 mmol/L (136-145)
[2023-07-25 20:49] LABS: ANION GAP 6 mmol/L (4-13); CALCIUM 7.8 mg/dL (8.5-10.1); CO2 25 mmol/L (21-32)
[2023-07-25 20:50] LABS: BLOOD UREA NITROGEN 19.8 mg/dL (7-18)
[2023-07-25 20:53] LABS: CREATININE 1.2 mg/dL (0.55-1.3)
[2023-07-25 21:05] LABS: GLUCOSE,RANDOM 594 mg/dL (74-106)
[2023-07-25] MEDS ORDERED: DEXTROSE 50%-WATER 25 GM/50 ML DISP.SYRIN ONE (21:26)
[2023-07-25] MEDS: MELATONIN 5 MG TABLETS PO SCH (21:29)
[2023-07-25] MEDS: CHLORHEXIDINE GLUCONATE 4% CLEANSER FOR DECOLONIZATION TP SCH (21:29)
[2023-07-25] MEDS: DEXTROSE 50%-WATER - 25 GM/50 ML VIAL IVPUSH ONE (21:58)
[2023-07-26 06:25] LABS: BASO % 0.4 % (0-2.0); EOS % 1.2 % (0-4.5); HEMATOCRIT 39.6 % (35.4-49); HEMOGLOBIN 13.2 GM/dL (11.7-16.9); LYMPH % 21.9 % (8-40); MCH 27.7 pg (25.7-33.7); MCHC 33.2 g/dl (32.0-35.9); MEAN CELL VOLUME 83.3 fl (80-96); MEAN PLT VOLUME 7.2 fl (7.5-11.1); MONO % 6.2 % (3.8-10.2); NEUT % 70.3 % (42.8-82.8); PLATELET COUNT 196 10^3/uL (134-434); RBC 4.76 M/mm3 (4.00-5.60); RDW 14.9 % (11.9-15.9); WHITE BLOOD COUNT 5.4 K/mm3 (4.0-10.0)
[2023-07-26 06:54] LABS: POTASSIUM 4.1 mmol/L (3.5-5.1)
[2023-07-26 06:58] LABS: BLOOD UREA NITROGEN 16.8 mg/dL (7-18); CALCIUM 8.7 mg/dL (8.5-10.1)
[2023-07-26 07:01] LABS: PHOSPHOROUS 3.5 mg/dL (2.5-4.9)
[2023-07-26 07:03] LABS: BILIRUBIN,TOTAL 0.5 mg/dL (0.2-1); TOT PROT 5.6 g/dl (6.4-8.2)
[2023-07-26] MEDS: PANTOPRAZOLE 40 MG TABLET PO SCH (09:17)
[2023-07-26] MEDS: LACTATED RINGERS SOLUTION 1,000 ML/1,000 ML INFUS.BAG IV SCH (09:17)
[2023-07-26] MEDS: INSULIN ASPART SLIDING SCALE (NOVOLOG) 1 VIAL SQ SCH (10:55)
[2023-07-26] MEDS: RAMIPRIL 5 MG CAPSULE PO SCH (10:55)
[2023-07-26] MEDS ORDERED: GEMFIBROZIL 600 MG TABLET (FP) PO SCH (19:14)
[2023-07-27 05:08] VITALS: RESP 20
[2023-07-27] MEDS: FENOFIBRIC ACID 135 MG CAP PO SCH (09:00)
[2023-07-27 11:10] VITALS: BP 129/95; PULSE 76; TEMP 98.4
== END 2023-07-27 14:03 | disposition home or self-care (01) | DRG 282 ==
LOC: JER 12:42 → JERBED 16:30 → JICU 23:16 → OBSVTOIN 07-25 07:52
PROVIDERS: ADMIT Internal Medicine; ATTEND Internal Medicine
DX: K85.90 Acute pancreatitis without necrosis or infection, unspecified (principal); I12.9 Hypertensive chronic kidney disease with stage 1 through stage 4 chronic kidney disease, or unspecified chronic kidney disease; E11.22 Type 2 diabetes mellitus with diabetic chronic kidney disease; N18.30 Chronic kidney disease, stage 3 unspecified; E78.1 Pure hyperglyceridemia; E11.65 Type 2 diabetes mellitus with hyperglycemia; Z86.010 Personal history of colon polyps; E21.3 Hyperparathyroidism, unspecified
CPT/HCPCS: 0241U-QW; 36415; 71045-TC-FY; 74176-TC; 76705-TC; 80048; 80053; 80061; 81003; 82550; 82553; 82962; 83036; 83690; 83735; 84100; 84439; 84443; 84478; 84484; 85025; 85610; 85730; 86140; 86850; 86900; 86901; 87086; 93005; 93010; 99285-25; G0378; J0131; J1644

== ENCOUNTER 2023-08-27 08:42 | Emergency (ER) | payer OTHER ==
[2023-08-27] MEDS ORDERED: ONDANSETRON 4 MG/2 ML VIAL ONE (09:29)
[2023-08-27] MEDS: SODIUM CHLORIDE 0.9% 500 ML INFUS.BAG IV ONE (09:59)
[2023-08-27] MEDS: ONDANSETRON 4 MG/2 ML VIAL IVPUSH ONE (10:00)
[2023-08-27 10:06] LABS: BASO % 0.7 % (0-2.0); EOS % 3.1 % (0-4.5); HEMOGLOBIN 12.5 GM/dL (11.7-16.9); LYMPH % 36.7 % (8-40); MEAN CELL VOLUME 84.8 fl (80-96); MEAN PLT VOLUME 7.3 fl (7.5-11.1); MONO % 8.8 % (3.8-10.2); NEUT % 50.7 % (42.8-82.8); PLATELET COUNT 217 10^3/uL (134-434); RBC 4.47 M/mm3 (4.00-5.60); RDW 15.2 % (11.9-15.9); WHITE BLOOD COUNT 3.5 K/mm3 (4.0-10.0)
[2023-08-27 10:26] LABS: POTASSIUM 4.6 mmol/L (3.5-5.1)
[2023-08-27 10:28] LABS: CALCIUM 8.9 mg/dL (8.5-10.1)
[2023-08-27 10:29] LABS: ALBUMIN 3.7 g/dl (3.4-5.0)
[2023-08-27 10:32] LABS: CREATININE 1.8 mg/dL (0.55-1.3)
[2023-08-27 10:33] LABS: BILIRUBIN,TOTAL 0.5 mg/dL (0.2-1); TOT PROT 6.5 g/dl (6.4-8.2)
[2023-08-27 10:40] LABS: EPI CELLS 4 /uL (0-25.1); HYALINE CASTS 1 /uL (0-3.1); PH,URINE 5.5 (5.0-8.0); URINE APPEARANCE CLEAR; URINE BACTERIA 1 /uL (0-1359); URINE BILIRUBIN NEGATIVE (NEGATIVE); URINE COLOR YELLOW; URINE GLUCOSE (UA) 3+ (NEGATIVE); URINE KETONE NEGATIVE (NEGATIVE); URINE LEUK ESTERASE NEGATIVE (NEGATIVE); URINE NITRITE NEGATIVE (NEGATIVE); URINE PROTEIN 3+ (NEGATIVE); URINE RBC 7 /uL (0-23.9); URINE WBC 5 /uL (0-25.8)
[2023-08-27] MEDS ORDERED: ACETAMINOPHEN INJECTION 100 ML IVPB ONE (11:47)
[2023-08-27] MEDS: ACETAMINOPHEN 1000 MG/100 ML BAG IVPB ONE (11:50)
[2023-08-27 12:12] VITALS: BP 112/65; PULSE 80; RESP 17; TEMP 98; BMI 26.1
[2023-08-27 12:29] LABS: POTASSIUM 4.1 mmol/L (3.5-5.1)
[2023-08-27 12:30] LABS: CALCIUM 7.7 mg/dL (8.5-10.1)
[2023-08-27 12:31] LABS: ALBUMIN 3.4 g/dl (3.4-5.0); BLOOD UREA NITROGEN 28.9 mg/dL (7-18)
[2023-08-27 12:34] LABS: CREATININE 1.6 mg/dL (0.55-1.3)
[2023-08-27 12:36] LABS: BILIRUBIN,TOTAL 0.4 mg/dL (0.2-1); TOT PROT 5.8 g/dl (6.4-8.2)
== END 2023-08-27 15:10 | disposition home or self-care (01) ==
LOC: JER 08:42
PROC: 3E030NZ Introduction of Analgesics, Hypnotics, Sedatives into Peripheral Vein, Open Approach (ICD-10-PCS; principal; 2023-08-27)
PROC: 3E030GC Introduction of Other Therapeutic Substance into Peripheral Vein, Open Approach (ICD-10-PCS; 2023-08-27)
DX: N17.9 Acute kidney failure, unspecified (principal); R50.9 Fever, unspecified; R53.83 Other fatigue; R53.1 Weakness; R42 Dizziness and giddiness; R63.0 Anorexia; R11.0 Nausea; Z20.822 Contact with and (suspected) exposure to COVID-19
CPT/HCPCS: 0241U-QW; 36415; 71046-TC-FY; 80053; 81003; 83735; 84484; 85025; 87086; 93005; 93010; 99285-25; J0131

== ENCOUNTER 2023-10-20 04:00 | Day surgery (SDC) | payer OTHER ==
[2023-10-13 15:41] VITALS: BMI 26.6
[2023-10-20 11:41] VITALS: TEMP 97.7
[2023-10-20 12:13] VITALS: RESP 20
[2023-10-20 12:14] VITALS: BP 128/80; PULSE 72
== END 2023-10-20 12:14 | disposition home or self-care (01) ==
LOC: JASU-ENDO 04:00
PROVIDERS: ATTEND Internal Medicine Gastroenterology
PROC: 0DBP8ZX Excision of Rectum, Via Natural or Artificial Opening Endoscopic, Diagnostic (ICD-10-PCS; 2023-10-20)
PROC: 0DBN8ZX Excision of Sigmoid Colon, Via Natural or Artificial Opening Endoscopic, Diagnostic (ICD-10-PCS; 2023-10-20)
PROC: 0DBH8ZX Excision of Cecum, Via Natural or Artificial Opening Endoscopic, Diagnostic (ICD-10-PCS; 2023-10-20)
PROC: 0DBP8ZX Excision of Rectum, Via Natural or Artificial Opening Endoscopic, Diagnostic (ICD-10-PCS; 2023-10-20)
PROC: 0DBH8ZX Excision of Cecum, Via Natural or Artificial Opening Endoscopic, Diagnostic (ICD-10-PCS; principal; 2023-10-20 09:00)
DX: D12.0 Benign neoplasm of cecum (principal); D12.8 Benign neoplasm of rectum; K51.40 Inflammatory polyps of colon without complications; K63.5 Polyp of colon; I10 Essential (primary) hypertension; E11.9 Type 2 diabetes mellitus without complications; Z79.84 Long term (current) use of oral hypoglycemic drugs
CPT/HCPCS: 82962; 88305-TC

== ENCOUNTER 2023-12-19 13:58 | Emergency (ER) | payer OTHER ==
[2023-12-19 14:03] VITALS: RESP 16; TEMP 98.3; BMI 25.8
[2023-12-19] MEDS ORDERED: ACETAMINOPHEN INJECTION 100 ML IVPB ONE (16:21)
[2023-12-19] MEDS: ACETAMINOPHEN 1000 MG/100 ML BAG IVPB ONE (16:29)
[2023-12-19] MEDS: SODIUM CHLORIDE 1,000 ML IV STA (16:29)
[2023-12-19 16:32] LABS: BASO % 0.5 % (0-2.0); EOS % 0.9 % (0-4.5); HEMATOCRIT 40.8 % (35.4-49); HEMOGLOBIN 13.4 GM/dL (11.7-16.9); LYMPH % 21.3 % (8-40); MCH 28.7 pg (25.7-33.7); MCHC 32.9 g/dl (32.0-35.9); MEAN CELL VOLUME 87.3 fl (80-96); MEAN PLT VOLUME 6.8 fl (7.5-11.1); NEUT % 72.3 % (42.8-82.8); PLATELET COUNT 183 10^3/uL (134-434); RBC 4.68 M/mm3 (4.00-5.60); RDW 16.1 % (11.9-15.9); WHITE BLOOD COUNT 8.5 K/mm3 (4.0-10.0)
[2023-12-19 16:33] LABS: EPI CELLS 3 /uL (0-25.1); HYALINE CASTS 1 /uL (0-3.1); PH,URINE 5.5 (5.0-8.0); URINE APPEARANCE CLEAR; URINE BACTERIA 10 /uL (0-1359); URINE BILIRUBIN NEGATIVE (NEGATIVE); URINE COLOR YELLOW; URINE GLUCOSE (UA) 3+ (NEGATIVE); URINE KETONE NEGATIVE (NEGATIVE); URINE LEUK ESTERASE NEGATIVE (NEGATIVE); URINE NITRITE NEGATIVE (NEGATIVE); URINE PROTEIN 2+ (NEGATIVE); URINE RBC 26 /uL (0-23.9); URINE UROBILINOGEN 0.2 mg/dL (0.2-1.0); URINE WBC 5 /uL (0-25.8)
[2023-12-19 16:52] LABS: POTASSIUM 4.3 mmol/L (3.5-5.1)
[2023-12-19 16:53] LABS: CALCIUM 8.4 mg/dL (8.5-10.1)
[2023-12-19 16:54] LABS: BLOOD UREA NITROGEN 47.1 mg/dL (7-18)
[2023-12-19 16:58] LABS: BILIRUBIN,TOTAL 0.4 mg/dL (0.2-1); CREATININE 1.7 mg/dL (0.55-1.3); TOT PROT 5.8 g/dl (6.4-8.2)
[2023-12-19 20:35] VITALS: BP 149/85; PULSE 88
== END 2023-12-19 21:05 | disposition home or self-care (01) ==
LOC: JER 13:58
PROC: 3E033NZ Introduction of Analgesics, Hypnotics, Sedatives into Peripheral Vein, Percutaneous Approach (ICD-10-PCS; principal; 2023-12-19)
PROC: 3E0337Z Introduction of Electrolytic and Water Balance Substance into Peripheral Vein, Percutaneous Approach (ICD-10-PCS; 2023-12-19)
DX: K64.4 Residual hemorrhoidal skin tags (principal); R10.32 Left lower quadrant pain; R05.9 Cough, unspecified; K62.89 Other specified diseases of anus and rectum; R00.0 Tachycardia, unspecified; Z20.822 Contact with and (suspected) exposure to COVID-19
CPT/HCPCS: 0241U-QW; 36415; 71046-TC-FY; 74176-TC; 80053; 81003; 83690; 85025; 87086; 87186; 99285-25; J0131